=== PATIENT | female | born 1935 | race Hispanic/Latino ===

== ENCOUNTER 2016-10-20 14:27 | Inpatient (IN) | payer OTHER ==
[2016-10-20 16:09] VITALS: BMI 40.5
[2016-10-20 16:39] VITALS: RESP 20
[2016-10-20] MEDS ORDERED: Oxycodone/Acetaminophen 5/325 mg Tab PO PRN (16:59)
[2016-10-20] MEDS ORDERED: Albuterol-Ipratrop 3 mg / 0.5 (3 ml) UD INH PRN (17:02)
[2016-10-20] MEDS: metroNIDAZOLE 500mg/100ml NS 100 ML IVPB SCH (20:12)
[2016-10-20] MEDS: Benzocaine/Menthol (Cepacol) Lozenge PO PRN (20:13)
[2016-10-21] MEDS: metroNIDAZOLE 500mg/100ml NS 100 ML IVPB SCH ×3 (06:17→20:21)
--- NOTE | 2016-10-21 08:32 | CP.PCM.HP ---
<Cee Montero - Last Filed: 10/21/16 10:51> History of Present Illness - History of Present Illness History of Present Illness: Pt is a 81 y/o female with medical history of HTN, COPD, CKD stage 4 and cervical cancer with recurrent abdominal abscess following complications to surgery; presented to ED with complaints of enlarging suprapubic mass and vaginal cyst was admitted and started on IV antibiotics and seen by surgery where I&D was performed. Infectious disease was consulted during the inpatient stays and recommends additional week of antibiotics, so pt has been admitted to TCU for antibiotics and rehab. Pt seen and evaluated at bedside this morning, does not have any complaints. Present on Admission - Present on Admission Any Indicators Present on Admission: No Review of Systems - Review of Systems All systems: reviewed and no additional remarkable complaints except Review of Systems: Per HPI Past Patient History - Infectious Disease Hx of Infectious Diseases: None - Past Medical History & Family History Past Medical History?: Yes - Past Social History Smoking Status: Heavy Smoker > 10 Cigarettes Daily - CARDIAC Hx Hypercholesterolemia: Yes Hx Hypertension: Yes - PULMONARY Hx Chronic Obstructive Pulmonary Disease (COPD): Yes - NEUROLOGICAL Hx Neurological Disorder: No - HEENT Hx HEENT Problems: No Hx Glaucoma: Yes - RENAL Hx Chronic Kidney Disease: Yes - ENDOCRINE/METABOLIC Hx Endocrine Disorders: No - HEMATOLOGICAL/ONCOLOGICAL Hx AIDS: No Hx Cancer: Yes (cervical) Hx Human Immunodeficiency Virus (HIV): No - INTEGUMENTARY Hx Dermatological Problems: No - MUSCULOSKELETAL/RHEUMATOLOGICAL Hx Falls: No Hx Osteoarthritis: Yes Hx Unsteady Gait: Yes - GASTROINTESTINAL Hx Colostomy: Yes (7 years) Hx Diverticulitis: Yes Hx Gall Bladder Disease: Yes Other/Comment: recurrent abdominal abcess - GENITOURINARY/GYNECOLOGICAL Hx Cervical Cancer: Yes Hx Incontinence: Yes Hx Urinary Tract Infection: Yes Other/Comment: Premont-uro fistula - PSYCHIATRIC Hx Anxiety: Yes Hx Depression: Yes Hx Substance Use: No - SURGICAL HISTORY Hx Cholecystectomy: Yes - ANESTHESIA Hx Anesthesia: Yes Hx Anesthesia Reactions: No Hx Malignant Hyperthermia: No Has any member of the family had a problem w/ anesthesia?: No Meds Allergies/Adverse Reactions: Allergies Allergy/AdvReac Type Severity Reaction Status Date / Time No Known Allergies Allergy Verified 10/20/16 16:07 Physical Exam - Constitutional Appears: Non-toxic, No Acute Distress - Head Exam Head Exam: NORMOCEPHALIC - Eye Exam Eye Exam: Normal appearance, PERRL Pupil Exam: NORMAL ACCOMODATION - ENT Exam ENT Exam: Mucous Membranes Moist - Respiratory Exam Respiratory Exam: Clear to Auscultation Bilateral, NORMAL BREATHING PATTERN. absent: Rhonchi, Wheezes - Cardiovascular Exam Cardiovascular Exam: REGULAR RHYTHM, +S1, +S2 - GI/Abdominal Exam GI & Abdominal Exam: Normal Bowel Sounds, Soft. absent: Tenderness Additional comments: colostomy site appears clean, no signs of infection - Extremities Exam Extremities exam: Negative for: calf tenderness, pedal edema - Neurological Exam Neurological exam: Alert, CN II-XII Intact, Oriented x3 Results - Vital Signs Recent Vital Signs: Last Vital Signs Temp 98.2 F 10/20/16 20:48 Pulse 89 10/20/16 20:48 Resp 20 10/20/16 20:48 BP 138/61 10/20/16 20:48 Pulse Ox 97 10/20/16 20:48 Assessment & Plan - Assessment and Plan (Free Text) Assessment: 81 y/o female admitted to TCU to complete a 1 week course of antibiotics for recurrent abscess s/p I&D Plan: 1. Recurrent abdominal abscess continue Zosyn (day 1 of 7) monitor vitals 2. start with Physical therapy 3. Diet- pt request regular diet 4. DVT prophylaxis- lovenox <Mamadou Beckman L - Last Filed: 10/25/16 07:12> Results - Vital Signs Recent Vital Signs: Last Vital Signs Temp 98.1 F 10/24/16 20:21 Pulse 79 10/24/16 20:21 Resp 20 10/24/16 20:21 BP 132/95 H 10/24/16 20:21 Pulse Ox 97 10/24/16 20:21 - Labs Result Diagrams: 10/24/16 12:30 10/24/16 12:30 Labs: Laboratory Results - last 24 hr 10/24/16 12:30 WBC 16.0 H D RBC 3.99 Hgb 12.1 Hct 38.2 MCV 95.9 MCH 30.2 MCHC 31.5 L RDW 15.2 H Plt Count 354 D Sodium 138 Potassium 5.1 H Chloride 110 H Carbon Dioxide 20 L Anion Gap 13 BUN 34 H Creatinine 2.0 H Est GFR ( Amer) 29 Est GFR (Non-Af Amer) 24 Random Glucose 139 H Calcium 9.6 Total Bilirubin 0.4 AST 27 ALT 25 Alkaline Phosphatase 97 Total Protein 7.7 Albumin 3.6 Globulin 4.0 H Albumin/Globulin Ratio 0.9 L Assessment & Plan - Assessment and Plan (Free Text) Plan: I was present during evaluation and discussed with Dr Winston cooper plans of care and PT. Mamadou Beckman M.D.
[2016-10-21] MEDS: Enoxaparin 30 mg Syringe SC SCH (08:46)
[2016-10-21] MEDS: Multiple Vitamins Oral Solution PO SCH (08:47)
[2016-10-21] MEDS ORDERED: Albuterol-Ipratrop 3 mg / 0.5 (3 ml) UD INH PRN (10:48)
[2016-10-21] MEDS: Lactobacillus Acidophilus 500 MU Cap PO SCH (17:26)
[2016-10-21] MEDS: Benzocaine/Menthol (Cepacol) Lozenge PO PRN (23:23)
[2016-10-22] MEDS: metroNIDAZOLE 500mg/100ml NS 100 ML IVPB SCH ×3 (04:44→21:53)
[2016-10-22] MEDS: Benzocaine/Menthol (Cepacol) Lozenge PO PRN (04:50)
[2016-10-22] MEDS: Lactobacillus Acidophilus 500 MU Cap PO SCH ×2 (09:07→17:32)
[2016-10-22] MEDS: Multiple Vitamins Oral Solution PO SCH (09:08)
[2016-10-22] MEDS: Enoxaparin 30 mg Syringe SC SCH (09:10)
--- NOTE | 2016-10-22 11:09 | RAD ---
HISTORY: wheezing/moist cough COMPARISON: 10/16/2016 TECHNIQUE: Chest PA and lateral FINDINGS: LUNGS: Minor volume loss is seen at the lung bases. There may be some improved aeration at the left lung base from prior study. Trachea is midline. No new focal infiltrate is seen. PLEURA: No significant pleural effusion identified. No pneumothorax apparent. CARDIOVASCULAR: Heart is not enlarged. Aorta is unchanged. No CHF is seen. OSSEOUS STRUCTURES: Healing left rib fracture is noted. No acute rib fracture or thoracic spine fracture is seen. Degenerative changes are seen in the thoracic spine with minor chronic wedge deformity. . VISUALIZED UPPER ABDOMEN: Normal. OTHER FINDINGS: None. IMPRESSION: No CHF or focal infiltrate. Minor interval improvement aeration.
[2016-10-22] MEDS: Albuterol-Ipratrop 3 mg / 0.5 (3 ml) UD INH SCH ×2 (15:27→20:07)
[2016-10-23] MEDS: metroNIDAZOLE 500mg/100ml NS 100 ML IVPB SCH ×3 (04:49→21:28)
[2016-10-23] MEDS: Albuterol-Ipratrop 3 mg / 0.5 (3 ml) UD INH SCH ×4 (07:30→19:47)
[2016-10-23] MEDS: Lactobacillus Acidophilus 500 MU Cap PO SCH ×2 (08:57→17:38)
[2016-10-23] MEDS: Enoxaparin 30 mg Syringe SC SCH (08:58)
[2016-10-23] MEDS: Multiple Vitamins Oral Solution PO SCH (09:00)
[2016-10-23] MEDS: Latanoprost 0.005% Opht SOUTION OU SCH (23:00)
[2016-10-24] MEDS: metroNIDAZOLE 500mg/100ml NS 100 ML IVPB SCH ×3 (05:04→21:48)
[2016-10-24] MEDS: Albuterol-Ipratrop 3 mg / 0.5 (3 ml) UD INH SCH ×4 (07:31→19:25)
[2016-10-24] MEDS: Lactobacillus Acidophilus 500 MU Cap PO SCH ×2 (09:02→17:37)
[2016-10-24] MEDS: Multiple Vitamins Oral Solution PO SCH (09:02)
[2016-10-24] MEDS: Enoxaparin 30 mg Syringe SC SCH (09:03)
[2016-10-24 12:50] LABS: HEMATOCRIT 38.2 % (34.0-47.0); MEAN CELL VOLUME 95.9 fl (81.0-99.0); MEAN CORPUSCULAR HEMOGLOBIN 30.2 pg (27.0-31.0); MEAN CORPUSCULAR HGB CONC 31.5 g/dL (33.0-37.0); RED CELL DISTRIBUTION WIDTH 15.2 % (11.5-14.5)
[2016-10-24 13:15] LABS: ALB/GLOB RATIO 0.9 (1.0-2.1); BILIRUBIN,TOTAL 0.4 mg/dl (0.2-1.3); CALCIUM 9.6 mg/dL (8.4-10.2); POTASSIUM 5.1 MMOL/L (3.6-5.0); TOTAL PROTEIN 7.7 G/DL (6.3-8.2)
--- NOTE | 2016-10-24 14:24 | RAD ---
HISTORY: r/o obstruction COMPARISON: CT abdomen pelvis without IV contrast performed 10/14/16 FINDINGS: Nonspecific bowel gas pattern. Evidence of right sided colostomy. IVC filter. Pelvic calcifications, likely phleboliths. Severe diastases of the pubic symphysis measuring approximately 4 cm in diameter. Irregularity about the left femoral head ; correlate clinically to exclude possibility of fracture. Osseous demineralization limits evaluation. Degenerative changes of the lower lumbar spine and bilateral hip joints. IMPRESSION: Severe diastases of the pubic symphysis measures approximately 4 cm in diameter. Irregularity about the left femoral head; correlate clinically to exclude possibility of fracture. If clinically indicated, CT may be considered for further evaluation.
[2016-10-24] MEDS: Potassium Chl 40 mEq in D5-1/2 1,000 ML IV SCH (14:36)
[2016-10-24] MEDS: Latanoprost 0.005% Opht SOUTION OU SCH (22:05)
[2016-10-25] MEDS ORDERED: Trimethobenzamide 200 mg/2 mL Inj IM ONE (00:26)
[2016-10-25] MEDS: Potassium Chl 40 mEq in D5-1/2 1,000 ML IV SCH (03:18)
[2016-10-25] MEDS: metroNIDAZOLE 500mg/100ml NS 100 ML IVPB SCH (05:27)
[2016-10-25 07:19] LABS: MEAN CELL VOLUME 96.4 fl (81.0-99.0); MEAN CORPUSCULAR HEMOGLOBIN 30.4 pg (27.0-31.0); MEAN CORPUSCULAR HGB CONC 31.5 g/dL (33.0-37.0); RED CELL DISTRIBUTION WIDTH 14.8 % (11.5-14.5); WHITE BLOOD COUNT 17.8 K/uL (4.8-10.8)
--- NOTE | 2016-10-25 07:21 | CP.PCM.PN ---
Subjective - Date & Time of Evaluation Date of Evaluation: 10/22/16 Time of Evaluation: 09:00 - Subjective Subjective: Patient continue to do well Has no chest pain or SOB. Has no fever. Objective - Vital Signs/Intake and Output Vital Signs (last 24 hours): Temp Pulse Resp BP Pulse Ox 98.1 F 79 20 132/95 H 97 10/24/16 20:21 10/24/16 20:21 10/24/16 20:21 10/24/16 20:21 10/24/16 20:21 - Medications Medications: Current Medications Albuterol/Ipratropium (Duoneb 3 Mg/0.5 Mg (3 Ml) Ud) 3 ml INH RQ6 PRN PRN Reason: Shortness of Breath Albuterol/Ipratropium (Duoneb 3 Mg/0.5 Mg (3 Ml) Ud) 3 ml INH RQ6 PRN PRN Reason: Shortness of Breath Albuterol/Ipratropium (Duoneb 3 Mg/0.5 Mg (3 Ml) Ud) 3 ml INH RQID [facility] Last Admin: 10/24/16 19:25 Dose: 3 ml Allopurinol (Zyloprim) 300 mg PO DAILY [facility] Last Admin: 10/24/16 09:03 Dose: Not Given Atorvastatin Calcium (Lipitor) 10 mg PO HS [facility] Last Admin: 10/24/16 21:49 Dose: 10 mg Benzocaine/Menthol (Cepacol Sore Throat) 1 nila PO Q2 PRN PRN Reason: Sore Throat Last Admin: 10/22/16 04:50 Dose: 1 nila Enoxaparin Sodium (Lovenox) 30 mg SC DAILY [facility] PRN Reason: Protocol Escitalopram Oxalate (Lexapro) 20 mg PO DAILY [facility] Last Admin: 10/24/16 09:02 Dose: Not Given Famotidine (Pepcid) 20 mg PO DAILY@2100 [facility] Last Admin: 10/24/16 21:48 Dose: 20 mg Fluticasone Propionate (Flonase) 1 spr SKYLAR BID [facility] Last Admin: 10/24/16 17:38 Dose: 1 spr Metronidazole (Flagyl 500mg/100ml Ns) 100 mls @ 100 mls/hr IVPB Q8@0500,1300, 2100 [facility] Last Admin: 10/25/16 05:27 Dose: 100 mls/hr Piperacillin Sod/Tazobactam (Sod 2.25 gm/ Sodium Chloride) 100 mls @ 100 mls/ hr IVPB 0600,1200,1800,0000 [facility] Last Admin: 10/25/16 05:28 Dose: 100 mls/hr Potassium Chloride/Dextrose/Sod Cl (Potassium Chl 40 Meq In D5-1/2ns) 1,000 mls @ 80 mls/hr IV .[id number] [facility] Stop: 10/25/16 12:46 Last Admin: 10/25/16 03:18 Dose: 80 mls/hr Ibuprofen (Motrin Tab) 400 mg PO Q6 PRN PRN Reason: Pain, moderate (4-7) Last Admin: 10/23/16 21:33 Dose: 400 mg Lactobacillus Acidophilus (Bacid Acidophilus) 1 cap PO BID [facility] Last Admin: 10/24/16 17:37 Dose: 1 cap Latanoprost (Xalatan Opht) 1 drop OU HS [facility] Last Admin: 10/24/16 22:05 Dose: 1 drop Metoprolol Tartrate (Lopressor) 25 mg PO DAILY [facility] Last Admin: 10/24/16 09:03 Dose: 25 mg Mirtazapine (Remeron) 15 mg PO HS PRN PRN Reason: Sleep Last Admin: 10/24/16 21:49 Dose: 15 mg Multivitamins/Vitamin C (Multi-Delyn Liquid) 5 ml PO DAILY [facility] Last Admin: 10/24/16 09:02 Dose: Not Given Ondansetron HCl (Zofran Inj) 4 mg IVP Q4 PRN PRN Reason: Nausea/Vomiting Last Admin: 10/25/16 06:18 Dose: 4 mg Timolol Maleate (Timoptic 0.5% Ophth Soln) 1 drop OU DAILY [facility] Last Admin: 10/24/16 09:02 Dose: 1 drop - Labs Labs: 10/24/16 12:30 10/24/16 12:30 - Head Exam Head Exam: NORMAL INSPECTION - Eye Exam Eye Exam: Normal appearance - Respiratory Exam Respiratory Exam: Clear to Ausculation Bilateral - Cardiovascular Exam Cardiovascular Exam: REGULAR RHYTHM - GI/Abdominal Exam GI & Abdominal Exam: Normal Bowel Sounds - Neurological Exam Neurological Exam: CN II-XII Intact, Oriented x3 Assessment and Plan (1) Abscess, suprapubic Status: Acute (2) CKD (chronic kidney disease) Status: Chronic (3) Hypertension Status: Chronic (4) COPD (chronic obstructive pulmonary disease) Status: Chronic (5) CKD (chronic kidney disease) stage 4, GFR 15-29 ml/min Status: Chronic - Assessment and Plan (Free Text) Plan: Cont meds Cont IV antibiotics cont tx
--- NOTE | 2016-10-25 07:26 | CP.PCM.PN ---
Subjective - Date & Time of Evaluation Date of Evaluation: 10/23/16 Time of Evaluation: 10:00 - Subjective Subjective: patient remains well Has no fever Did well with PT Has no chest pain or SOB. Objective - Vital Signs/Intake and Output Vital Signs (last 24 hours): Temp Pulse Resp BP Pulse Ox 98.1 F 79 20 132/95 H 97 10/24/16 20:21 10/24/16 20:21 10/24/16 20:21 10/24/16 20:21 10/24/16 20:21 - Medications Medications: Current Medications Albuterol/Ipratropium (Duoneb 3 Mg/0.5 Mg (3 Ml) Ud) 3 ml INH RQ6 PRN PRN Reason: Shortness of Breath Albuterol/Ipratropium (Duoneb 3 Mg/0.5 Mg (3 Ml) Ud) 3 ml INH RQ6 PRN PRN Reason: Shortness of Breath Albuterol/Ipratropium (Duoneb 3 Mg/0.5 Mg (3 Ml) Ud) 3 ml INH RQID [facility] Last Admin: 10/24/16 19:25 Dose: 3 ml Allopurinol (Zyloprim) 300 mg PO DAILY [facility] Last Admin: 10/24/16 09:03 Dose: Not Given Atorvastatin Calcium (Lipitor) 10 mg PO HS [facility] Last Admin: 10/24/16 21:49 Dose: 10 mg Benzocaine/Menthol (Cepacol Sore Throat) 1 nila PO Q2 PRN PRN Reason: Sore Throat Last Admin: 10/22/16 04:50 Dose: 1 nila Enoxaparin Sodium (Lovenox) 30 mg SC DAILY [facility] PRN Reason: Protocol Escitalopram Oxalate (Lexapro) 20 mg PO DAILY [facility] Last Admin: 10/24/16 09:02 Dose: Not Given Famotidine (Pepcid) 20 mg PO DAILY@2100 [facility] Last Admin: 10/24/16 21:48 Dose: 20 mg Fluticasone Propionate (Flonase) 1 spr SKYLAR BID [facility] Last Admin: 10/24/16 17:38 Dose: 1 spr Metronidazole (Flagyl 500mg/100ml Ns) 100 mls @ 100 mls/hr IVPB Q8@0500,1300, 2100 [facility] Last Admin: 10/25/16 05:27 Dose: 100 mls/hr Piperacillin Sod/Tazobactam (Sod 2.25 gm/ Sodium Chloride) 100 mls @ 100 mls/ hr IVPB 0600,1200,1800,0000 [facility] Last Admin: 10/25/16 05:28 Dose: 100 mls/hr Potassium Chloride/Dextrose/Sod Cl (Potassium Chl 40 Meq In D5-1/2ns) 1,000 mls @ 80 mls/hr IV .[id number] [facility] Stop: 10/25/16 12:46 Last Admin: 10/25/16 03:18 Dose: 80 mls/hr Ibuprofen (Motrin Tab) 400 mg PO Q6 PRN PRN Reason: Pain, moderate (4-7) Last Admin: 10/23/16 21:33 Dose: 400 mg Lactobacillus Acidophilus (Bacid Acidophilus) 1 cap PO BID [facility] Last Admin: 10/24/16 17:37 Dose: 1 cap Latanoprost (Xalatan Opht) 1 drop OU HS [facility] Last Admin: 10/24/16 22:05 Dose: 1 drop Metoprolol Tartrate (Lopressor) 25 mg PO DAILY [facility] Last Admin: 10/24/16 09:03 Dose: 25 mg Mirtazapine (Remeron) 15 mg PO HS PRN PRN Reason: Sleep Last Admin: 10/24/16 21:49 Dose: 15 mg Multivitamins/Vitamin C (Multi-Delyn Liquid) 5 ml PO DAILY [facility] Last Admin: 10/24/16 09:02 Dose: Not Given Ondansetron HCl (Zofran Inj) 4 mg IVP Q4 PRN PRN Reason: Nausea/Vomiting Last Admin: 10/25/16 06:18 Dose: 4 mg Timolol Maleate (Timoptic 0.5% Ophth Soln) 1 drop OU DAILY [facility] Last Admin: 10/24/16 09:02 Dose: 1 drop - Labs Labs: 10/25/16 07:07 10/24/16 12:30 - Head Exam Head Exam: NORMAL INSPECTION - Eye Exam Eye Exam: Normal appearance - Respiratory Exam Respiratory Exam: Clear to Ausculation Bilateral - Cardiovascular Exam Cardiovascular Exam: REGULAR RHYTHM - GI/Abdominal Exam GI & Abdominal Exam: Normal Bowel Sounds - Neurological Exam Neurological Exam: CN II-XII Intact, Oriented x3 Assessment and Plan (1) Abscess, suprapubic Status: Acute (2) CKD (chronic kidney disease) Status: Chronic (3) Hypertension Status: Chronic (4) COPD (chronic obstructive pulmonary disease) Status: Chronic (5) CKD (chronic kidney disease) stage 4, GFR 15-29 ml/min Status: Chronic - Assessment and Plan (Free Text) Plan: Cont meds Cont PT Cont IV antibiotics
--- NOTE | 2016-10-25 07:30 | CP.PCM.PN ---
Subjective - Date & Time of Evaluation Date of Evaluation: 10/24/16 Time of Evaluation: 10:00 - Subjective Subjective: Complains of nausea and could not tolerate breakfast. Has no fever, Had a good bm Had loose stools yesterday but was negative for C diff. Objective - Vital Signs/Intake and Output Vital Signs (last 24 hours): Temp Pulse Resp BP Pulse Ox 98.1 F 79 20 132/95 H 97 10/24/16 20:21 10/24/16 20:21 10/24/16 20:21 10/24/16 20:21 10/24/16 20:21 - Medications Medications: Current Medications Albuterol/Ipratropium (Duoneb 3 Mg/0.5 Mg (3 Ml) Ud) 3 ml INH RQ6 PRN PRN Reason: Shortness of Breath Albuterol/Ipratropium (Duoneb 3 Mg/0.5 Mg (3 Ml) Ud) 3 ml INH RQ6 PRN PRN Reason: Shortness of Breath Albuterol/Ipratropium (Duoneb 3 Mg/0.5 Mg (3 Ml) Ud) 3 ml INH RQID [facility] Last Admin: 10/24/16 19:25 Dose: 3 ml Allopurinol (Zyloprim) 300 mg PO DAILY [facility] Last Admin: 10/24/16 09:03 Dose: Not Given Atorvastatin Calcium (Lipitor) 10 mg PO HS [facility] Last Admin: 10/24/16 21:49 Dose: 10 mg Benzocaine/Menthol (Cepacol Sore Throat) 1 nila PO Q2 PRN PRN Reason: Sore Throat Last Admin: 10/22/16 04:50 Dose: 1 nila Enoxaparin Sodium (Lovenox) 30 mg SC DAILY [facility] PRN Reason: Protocol Escitalopram Oxalate (Lexapro) 20 mg PO DAILY [facility] Last Admin: 10/24/16 09:02 Dose: Not Given Famotidine (Pepcid) 20 mg PO DAILY@2100 [facility] Last Admin: 10/24/16 21:48 Dose: 20 mg Fluticasone Propionate (Flonase) 1 spr SKYLAR BID [facility] Last Admin: 10/24/16 17:38 Dose: 1 spr Metronidazole (Flagyl 500mg/100ml Ns) 100 mls @ 100 mls/hr IVPB Q8@0500,1300, 2100 [facility] Last Admin: 10/25/16 05:27 Dose: 100 mls/hr Piperacillin Sod/Tazobactam (Sod 2.25 gm/ Sodium Chloride) 100 mls @ 100 mls/ hr IVPB 0600,1200,1800,0000 [facility] Last Admin: 10/25/16 05:28 Dose: 100 mls/hr Potassium Chloride/Dextrose/Sod Cl (Potassium Chl 40 Meq In D5-1/2ns) 1,000 mls @ 80 mls/hr IV .[id number] [facility] Stop: 10/25/16 12:46 Last Admin: 10/25/16 03:18 Dose: 80 mls/hr Ibuprofen (Motrin Tab) 400 mg PO Q6 PRN PRN Reason: Pain, moderate (4-7) Last Admin: 10/23/16 21:33 Dose: 400 mg Lactobacillus Acidophilus (Bacid Acidophilus) 1 cap PO BID [facility] Last Admin: 10/24/16 17:37 Dose: 1 cap Latanoprost (Xalatan Opht) 1 drop OU HS [facility] Last Admin: 10/24/16 22:05 Dose: 1 drop Metoprolol Tartrate (Lopressor) 25 mg PO DAILY [facility] Last Admin: 10/24/16 09:03 Dose: 25 mg Mirtazapine (Remeron) 15 mg PO HS PRN PRN Reason: Sleep Last Admin: 10/24/16 21:49 Dose: 15 mg Multivitamins/Vitamin C (Multi-Delyn Liquid) 5 ml PO DAILY [facility] Last Admin: 10/24/16 09:02 Dose: Not Given Ondansetron HCl (Zofran Inj) 4 mg IVP Q4 PRN PRN Reason: Nausea/Vomiting Last Admin: 10/25/16 06:18 Dose: 4 mg Timolol Maleate (Timoptic 0.5% Ophth Soln) 1 drop OU DAILY [facility] Last Admin: 10/24/16 09:02 Dose: 1 drop - Labs Labs: 10/25/16 07:07 10/24/16 12:30 - Head Exam Head Exam: NORMAL INSPECTION - Eye Exam Eye Exam: Normal appearance - Respiratory Exam Respiratory Exam: NORMAL BREATHING PATTERN - Cardiovascular Exam Cardiovascular Exam: REGULAR RHYTHM - GI/Abdominal Exam GI & Abdominal Exam: Normal Bowel Sounds - Neurological Exam Neurological Exam: CN II-XII Intact, Oriented x3 Assessment and Plan (1) Abscess, suprapubic Status: Acute (2) CKD (chronic kidney disease) Status: Chronic (3) Hypertension Status: Chronic (4) COPD (chronic obstructive pulmonary disease) Status: Chronic (5) CKD (chronic kidney disease) stage 4, GFR 15-29 ml/min Status: Chronic - Assessment and Plan (Free Text) Plan: Keep NPO Hydrate Cont meds Cont tx Zofran check labs hydrate with D5 and KCl
[2016-10-25 07:38] LABS: ALB/GLOB RATIO 0.9 (1.0-2.1); BILIRUBIN,TOTAL 0.5 mg/dl (0.2-1.3); CALCIUM 10.1 mg/dL (8.4-10.2); POTASSIUM 4.7 MMOL/L (3.6-5.0); TOTAL PROTEIN 7.7 G/DL (6.3-8.2)
[2016-10-25] MEDS: Albuterol-Ipratrop 3 mg / 0.5 (3 ml) UD INH SCH ×4 (07:55→20:43)
[2016-10-25] MEDS: Lactobacillus Acidophilus 500 MU Cap PO SCH ×2 (08:49→16:40)
[2016-10-25] MEDS: Multiple Vitamins Oral Solution PO SCH (08:49)
--- NOTE | 2016-10-25 10:50 | CP.PCM.CON ---
History of Present Illness - History of Present Illness History of Present Illness: 81 y/o female with medical history of HTN, COPD, CKD stage 4 and cervical cancer with recurrent abdominal abscess following complications to surgery; presented to ED with complaints of enlarging suprapubic mass and vaginal cyst was admitted and started on IV antibiotics and seen by surgery where I&D was performed. referred for ID eval and f-up s/p I and D c/o nausea and vomitung with loose stool in rlq colostomy Review of Systems - Constitutional Constitutional: As Per HPI - EENT Eyes: absent: As Per HPI, Blind Spots, Blurred Vision, Change in Vision, Decreased Night Vision, Diplopia, Discharge, Dry Eye, Exophthalmos, Floaters, Irritation, Itchy Eyes, Loss of Peripheral Vision, Pain, Photophobia, Requires Corrective Lenses, Sees Flashes, Spots in Vision, Tunnel Vision, Other Visual Disturbances, Loss of Vision, Other Ears: absent: As Per HPI, Decreased Hearing, Ear Discharge, Ear Pain, Tinnitus, Abnormal Hearing, Disequilibrium, Dizziness, Other Nose/Mouth/Throat: absent: As Per HPI, Epistaxis, Nasal Congestion, Nasal Discharge, Nasal Obstruction, Nasal Trauma, Nose Pain, Post Nasal Drip, Sinus Pain, Sinus Pressure, Bleeding Gums, Change in Voice, Dental Pain, Dry Mouth, Dysphagia, Halitosis, Hoarsness, Lip Swelling, Mouth Lesions, Mouth Pain, Odynophagia, Sore Throat, Throat Swelling, Tongue Swelling, Facial Pain, Neck Pain, Neck Mass, Other - Breasts Breasts: absent: As Per HPI, Change in Shape, Mass, Pain, Nipple Discharge, Nipple Inversion, Skin Changes, Swelling, Other - Cardiovascular Cardiovascular: absent: As Per HPI, Acrocyanosis, Chest Pain, Chest Pain at Rest , Chest Pain with Activity, Claudication, Diaphoresis, Dyspnea, Dyspnea on Exertion, Edema, Irregular Heart Rhythm, Pain Radiating to Arm/Neck/Jaw, Leg Edema, Leg Ulcers, Lightheadedness, Orthopnea, Palpitations, Paroxysmal Nocturnal Dyspnea, Pedal Edema, Radiating Pain, Rapid Heart Rate, Slow Heart Rate, Syncope, Other - Respiratory Respiratory: absent: As Per HPI, Cough, Dyspnea, Hemoptysis, Dyspnea on Exertion , Wheezing, Snoring, Stridor, Pain on Inspiration, Chest Congestion, Excessive Mucous Production, Change in Mucous Color, Pain with Coughing, Other - Gastrointestinal Gastrointestinal: As Per HPI - Genitourinary Genitourinary: absent: As Per HPI, Change in Urinary Stream, Difficulty Urinating, Dysuria, Flank Pain, Hematuria, Pyuria, Nocturia, Urinary Incontinence, Urinary Frequency, Urinary Hesitance, Urinary Urgency, Voiding Freq/Small Amts, Freq UTI, Hx Renal/Bladder Calculi, Hx /Renal Surgery, Bladder Distension, Other - Reproductive: Female Reproductive:Female: absent: As Per HPI, Amenorrhea, Amenorrhea/ Control, Currently Menstual, Cycle <21 Days, Cycle >35 Days, Cycle Variable, Menses 1-7 Days, Menses >/= 8 Days, Menses Variable, Cycle > 4 Weeks Between, No Menses for 6 Months, Heavy Menses, Light Menses, Normal Menses, Spotting Between Cycles , S/P Hysterectomy, Menopausal, Post Menopausal, Premenarche, Abnormal Vaginal Bleeding, Dysmenorrhea, Dyspareunia, Genital Lesions, Genital Pruritis, Pelvic Pain, Prolapse Symptoms, Sexual Dysfunction, Vaginal Discharge, Vaginal Dryness , Vaginal Odor, Vaginal Pruritis, Other - Menstruation Menstruation: absent: As Per HPI, Amenorrhea, Amenorrhea/ Control, Currently Menstual, Cycle <21 Days, Cycle >35 Days, Cycle Variable, Menses 1-7 Days, Menses >/= 8 Days, Menses Variable, Cycle > 4 Weeks Between, No Menses for 6 Months, Heavy Menses, Light Menses, Normal Menses, Spotting Between Cycles , S/P Hysterectomy, Menopausal, Post Menopausal, Premenarche, Abnormal Vaginal Bleeding, Dysmenorrhea, Other - Integumentary Integumentary: absent: As Per HPI, Acne, Alopecia, Bleeding Lesions, Change in Hair, Change in Nails, Change in Pigmentation, Changing Lesions, Dry Skin, Erythema, Furuncle, Hirsutism, Lesions, New Lesions, Non-Healing Lesions, Photosensitivity, Pruritus, Rash, Skin Pain, Skin Ulcer, Sores, Striae, Swelling , Unusual Bruising, Wounds, Jaundice, Other - Neurological Neurological: absent: As Per HPI, Abnormal Gait, Abnormal Hearing, Abnormal Movements, Abnormal Speech, Behavioral Changes, Burning Sensations, Confusion, Convulsions, Disequilibrium, Dizziness, Numbness, Focal Weakness, Frequent Falls , Headaches, Lack of Coordination, Loss of Vision, Memory Loss, Paresthesias, Radicular Pain, Restless Legs, Sensory Deficit, Syncope, Tingling, Tremor, Vertigo, Weakness, Other Visual Disturbances, Other - Psychiatric Psychiatric: absent: As Per HPI, Abnormal Sleep Pattern, Anhedonia, Anxiety, Auditory Hallucinations, Behavioral Changes, Change in Appetite, Change in Libido, Confusion, Depression, Difficulty Concentrating, Hallucinations, Homicidal Ideation, Hopelessness, Irritability, Memory Loss, Mood Swings, Panic Attacks, Paranoia, Suicidal Ideation, Visual Hallucinations, Tactile Hallucinations, Other - Endocrine Endocrine: absent: As Per HPI, Change in Body Appearance, Change in Libido, Cold Intolorance, Deepening of Voice, Excessive Sweating, Fatigue, Flushing, Heat Intolorance, Increase in Ring/Shoe/Hat Size, Palpitations, Polydipsia, Polyphagia, Polyuria, Other - Hematologic/Lymphatic Hematologic: absent: As Per HPI, Easy Bleeding, Easy Bruising, Lymphadenopathy, Other Past Patient History - Infectious Disease Hx of Infectious Diseases: None - Past Medical History & Family History Past Medical History?: Yes - Past Social History Smoking Status: Heavy Smoker > 10 Cigarettes Daily - CARDIAC Hx Hypercholesterolemia: Yes Hx Hypertension: Yes - PULMONARY Hx Chronic Obstructive Pulmonary Disease (COPD): Yes - NEUROLOGICAL Hx Neurological Disorder: No - HEENT Hx HEENT Problems: No Hx Glaucoma: Yes - RENAL Hx Chronic Kidney Disease: Yes - ENDOCRINE/METABOLIC Hx Endocrine Disorders: No - HEMATOLOGICAL/ONCOLOGICAL Hx AIDS: No Hx Cancer: Yes (cervical) Hx Human Immunodeficiency Virus (HIV): No - INTEGUMENTARY Hx Dermatological Problems: No - MUSCULOSKELETAL/RHEUMATOLOGICAL Hx Falls: No Hx Osteoarthritis: Yes Hx Unsteady Gait: Yes - GASTROINTESTINAL Hx Colostomy: Yes (7 years) Hx Diverticulitis: Yes Hx Gall Bladder Disease: Yes Other/Comment: recurrent abdominal abcess - GENITOURINARY/GYNECOLOGICAL Hx Cervical Cancer: Yes Hx Incontinence: Yes Hx Urinary Tract Infection: Yes Other/Comment: [place]-uro fistula - PSYCHIATRIC Hx Anxiety: Yes Hx Depression: Yes Hx Substance Use: No - SURGICAL HISTORY Hx Cholecystectomy: Yes - ANESTHESIA Hx Anesthesia: Yes Hx Anesthesia Reactions: No Hx Malignant Hyperthermia: No Has any member of the family had a problem w/ anesthesia?: No Meds Allergies/Adverse Reactions: Allergies Allergy/AdvReac Type Severity Reaction Status Date / Time No Known Allergies Allergy Verified 03/16/17 16:07 - Medications Medications: Current Medications Albuterol/Ipratropium (Duoneb 3 Mg/0.5 Mg (3 Ml) Ud) 3 ml INH RQ6 PRN PRN Reason: Shortness of Breath Albuterol/Ipratropium (Duoneb 3 Mg/0.5 Mg (3 Ml) Ud) 3 ml INH RQ6 PRN PRN Reason: Shortness of Breath Albuterol/Ipratropium (Duoneb 3 Mg/0.5 Mg (3 Ml) Ud) 3 ml INH RQID [facility] Last Admin: 10/25/16 07:55 Dose: 3 ml Allopurinol (Zyloprim) 300 mg PO DAILY [facility] Last Admin: 10/25/16 08:43 Dose: 300 mg Atorvastatin Calcium (Lipitor) 10 mg PO HS [facility] Last Admin: 10/24/16 21:49 Dose: 10 mg Benzocaine/Menthol (Cepacol Sore Throat) 1 nila PO Q2 PRN PRN Reason: Sore Throat Last Admin: 10/22/16 04:50 Dose: 1 nila Enoxaparin Sodium (Lovenox) 30 mg SC DAILY [facility] PRN Reason: Protocol Escitalopram Oxalate (Lexapro) 20 mg PO DAILY [facility] Last Admin: 10/25/16 08:43 Dose: 20 mg Famotidine (Pepcid) 20 mg PO DAILY@2100 [facility] Last Admin: 10/24/16 21:48 Dose: 20 mg Fluticasone Propionate (Flonase) 1 spr SKYLAR BID [facility] Last Admin: 10/25/16 08:49 Dose: 1 spr Metronidazole (Flagyl 500mg/100ml Ns) 100 mls @ 100 mls/hr IVPB Q8@0500,1300, 2100 [facility] Last Admin: 10/25/16 05:27 Dose: 100 mls/hr Piperacillin Sod/Tazobactam (Sod 2.25 gm/ Sodium Chloride) 100 mls @ 100 mls/ hr IVPB 0600,1200,1800,0000 [facility] Last Admin: 10/25/16 05:28 Dose: 100 mls/hr Potassium Chloride/Dextrose/Sod Cl (Potassium Chl 40 Meq In D5-1/2ns) 1,000 mls @ 80 mls/hr IV .[id number] [facility] Stop: 10/25/16 12:46 Last Admin: 10/25/16 03:18 Dose: 80 mls/hr Ibuprofen (Motrin Tab) 400 mg PO Q6 PRN PRN Reason: Pain, moderate (4-7) Last Admin: 10/23/16 21:33 Dose: 400 mg Lactobacillus Acidophilus (Bacid Acidophilus) 1 cap PO BID [facility] Last Admin: 10/25/16 08:49 Dose: 1 cap Latanoprost (Xalatan Opht) 1 drop OU HS [facility] Last Admin: 10/24/16 22:05 Dose: 1 drop Metoprolol Tartrate (Lopressor) 25 mg PO DAILY [facility] Last Admin: 10/25/16 08:43 Dose: 25 mg Mirtazapine (Remeron) 15 mg PO HS PRN PRN Reason: Sleep Last Admin: 10/24/16 21:49 Dose: 15 mg Multivitamins/Vitamin C (Multi-Delyn Liquid) 5 ml PO DAILY [facility] Last Admin: 10/25/16 08:49 Dose: 5 ml Nystatin (Nystop Topical Powder) 1 applic TOP TID [facility] Ondansetron HCl (Zofran Inj) 4 mg IVP Q4 PRN PRN Reason: Nausea/Vomiting Last Admin: 10/25/16 06:18 Dose: 4 mg Timolol Maleate (Timoptic 0.5% Oph Soln) 1 drop OU DAILY [facility] Last Admin: 10/25/16 08:49 Dose: 1 drop Results - Vital Signs Recent Vital Signs: Last Vital Signs Temp 97.5 F L 10/25/16 08:44 Pulse 83 10/25/16 08:44 Resp 20 10/25/16 08:44 BP 154/82 H 10/25/16 08:44 Pulse Ox 96 10/25/16 08:44 - Labs Result Diagrams: 10/25/16 07:07 10/25/16 07:07 Labs: Laboratory Results - last 24 hr 10/24/16 10/25/16 12:30 07:07 WBC 16.0 H D 17.8 H RBC 3.99 4.05 Hgb 12.1 12.3 Hct 38.2 39.0 MCV 95.9 96.4 MCH 30.2 30.4 MCHC 31.5 L 31.5 L RDW 15.2 H 14.8 H Plt Count 354 D 372 Sodium 138 149 H Potassium 5.1 H 4.7 Chloride 110 H 112 H Carbon Dioxide 20 L 21 L Anion Gap 13 21 H BUN 34 H 38 H Creatinine 2.0 H 1.9 H Est GFR ( Amer) 29 31 Est GFR (Non-Af Amer) 24 26 Random Glucose 139 H 121 H Calcium 9.6 10.1 Total Bilirubin 0.4 0.5 AST 27 49 H D ALT 25 28 Alkaline Phosphatase 97 88 Total Protein 7.7 7.7 Albumin 3.6 3.7 Globulin 4.0 H 4.0 H Albumin/Globulin Ratio 0.9 L 0.9 L Assessment & Plan (1) Abscess, suprapubic Status: Acute Priority: High (2) Chronic obstructive bronchitis Status: Acute Priority: High - Assessment and Plan (Free Text) Assessment: r/o recurrent abscess may need follow up surg eval, repaeat CT abd IV antibiiotics adjusted will follow
--- NOTE | 2016-10-25 11:21 | CP.PCM.PN ---
Subjective - Date & Time of Evaluation Date of Evaluation: 10/25/16 Time of Evaluation: 09:55 - Subjective Subjective: pt seen and examined at bedside, still reports feeling nauseous states she vomited last night but non this morning, has not had diarrhea but had regular bm ; denies any abdominal pain. no other complaints Objective - Vital Signs/Intake and Output Vital Signs (last 24 hours): Temp Pulse Resp BP Pulse Ox 97.5 F L 83 20 154/82 H 96 10/25/16 08:44 10/25/16 08:44 10/25/16 08:44 10/25/16 08:44 10/25/16 08:44 - Medications Medications: Current Medications Albuterol/Ipratropium (Duoneb 3 Mg/0.5 Mg (3 Ml) Ud) 3 ml INH RQ6 PRN PRN Reason: Shortness of Breath Albuterol/Ipratropium (Duoneb 3 Mg/0.5 Mg (3 Ml) Ud) 3 ml INH RQ6 PRN PRN Reason: Shortness of Breath Albuterol/Ipratropium (Duoneb 3 Mg/0.5 Mg (3 Ml) Ud) 3 ml INH RQID [facility] Last Admin: 10/25/16 07:55 Dose: 3 ml Allopurinol (Zyloprim) 300 mg PO DAILY [facility] Last Admin: 10/25/16 08:43 Dose: 300 mg Atorvastatin Calcium (Lipitor) 10 mg PO HS [facility] Last Admin: 10/24/16 21:49 Dose: 10 mg Benzocaine/Menthol (Cepacol Sore Throat) 1 nila PO Q2 PRN PRN Reason: Sore Throat Last Admin: 10/22/16 04:50 Dose: 1 nila Enoxaparin Sodium (Lovenox) 30 mg SC DAILY [facility] PRN Reason: Protocol Escitalopram Oxalate (Lexapro) 20 mg PO DAILY [facility] Last Admin: 10/25/16 08:43 Dose: 20 mg Famotidine (Pepcid) 20 mg PO DAILY@2100 [facility] Last Admin: 10/24/16 21:48 Dose: 20 mg Fluticasone Propionate (Flonase) 1 spr SKYLAR BID [facility] Last Admin: 10/25/16 08:49 Dose: 1 spr Piperacillin Sod/Tazobactam (Sod 2.25 gm/ Sodium Chloride) 100 mls @ 100 mls/ hr IVPB 0600,1200,1800,0000 [facility] Last Admin: 10/25/16 05:28 Dose: 100 mls/hr Potassium Chloride/Dextrose/Sod Cl (Potassium Chl 40 Meq In D5-1/2ns) 1,000 mls @ 80 mls/hr IV .[id number] [facility] Stop: 10/25/16 12:46 Last Admin: 10/25/16 03:18 Dose: 80 mls/hr Vancomycin HCl 1 gm/ Sodium (Chloride) 250 mls @ 250 mls/hr IVPB ONCE ONE Stop: 10/25/16 11:59 Cefazolin Sodium 1 gm/ Sodium (Chloride) 100 mls @ 100 mls/hr IVPB Q12 [facility] Ibuprofen (Motrin Tab) 400 mg PO Q6 PRN PRN Reason: Pain, moderate (4-7) Last Admin: 10/23/16 21:33 Dose: 400 mg Lactobacillus Acidophilus (Bacid Acidophilus) 1 cap PO BID [facility] Last Admin: 10/25/16 08:49 Dose: 1 cap Latanoprost (Xalatan Opht) 1 drop OU HS [facility] Last Admin: 10/24/16 22:05 Dose: 1 drop Metoprolol Tartrate (Lopressor) 25 mg PO DAILY [facility] Last Admin: 10/25/16 08:43 Dose: 25 mg Mirtazapine (Remeron) 15 mg PO HS PRN PRN Reason: Sleep Last Admin: 10/24/16 21:49 Dose: 15 mg Multivitamins/Vitamin C (Multi-Delyn Liquid) 5 ml PO DAILY [facility] Last Admin: 10/25/16 08:49 Dose: 5 ml Nystatin (Nystop Topical Powder) 1 applic TOP TID [facility] Ondansetron HCl (Zofran Inj) 4 mg IVP Q4 PRN PRN Reason: Nausea/Vomiting Last Admin: 10/25/16 06:18 Dose: 4 mg Timolol Maleate (Timoptic 0.5% Ophth Soln) 1 drop OU DAILY [facility] Last Admin: 10/25/16 08:49 Dose: 1 drop - Labs Labs: 10/25/16 07:07 10/25/16 07:07 - Constitutional Appears: Non-toxic, No Acute Distress - Head Exam Head Exam: NORMOCEPHALIC - ENT Exam ENT Exam: Mucous Membranes Moist - Respiratory Exam Respiratory Exam: Clear to Ausculation Bilateral, NORMAL BREATHING PATTERN. absent: Rhonchi, Wheezes - Cardiovascular Exam Cardiovascular Exam: REGULAR RHYTHM, +S1, +S2 - GI/Abdominal Exam GI & Abdominal Exam: Soft, Normal Bowel Sounds. absent: Tenderness Additional comments: colostomy bag shows some loss stools, but no signs of infection in surrounding area - Extremities Exam Extremities Exam: absent: Calf Tenderness Assessment and Plan - Assessment and Plan (Free Text) Assessment: 81 y/o female admitted to TCU to complete a 1 week course of antibiotics for recurrent abscess s/p I&D Plan: 1. Recurrent abdominal abscess continue Zosyn (day 5 of 7) WBC starting to trend up, ID consulted Metronidazle changed to Cefazolin (day 1) repeat abdominal ct scan (script given to TCU ) - will consider re-consulting surgery depending on finding will repeat cbc in the AM No fevers monitor vitals 2. Vaginal bleeding had another episode of vaginal bleeding mixed with her urine No longer actively bleeding Will monitor 3. start with Physical therapy 4. Diet- pt request regular diet 5. DVT prophylaxis- lovenox
[2016-10-25] MEDS ORDERED: Iohexol 240 (50 ml) PO ONE (11:45)
[2016-10-25] MEDS: ceFAZolin 1 GM in Sodium Chloride 0.9% 100 ML IVPB SCH ×2 (12:08→23:13)
[2016-10-25] MEDS: Enoxaparin 30 mg Syringe SC SCH (12:09)
--- NOTE | 2016-10-25 13:47 | CP.PCM.CON ---
History of Present Illness - History of Present Illness History of Present Illness: Gen Surg: Dr. Singer 81F w/ PMHx of HTN, COPD, CKD stage IV, cervical CA, recurrent mons pubis abscess, s/p I&D of mons pubis abscess POD #8. Patient reports she has been experiencing nausea and vomiting since Monday10/21/16. She states she ate some beef and cabbage for [employer] day and hours after that she began to experience n/v. Patient also complains of loose green stool bowel movements into ostomy bag following consumption of food. Currently she denies fever/ chills, chest pain, SOB. Pt complains of generalized mild abdominal pain. Area along I&D incision is non-erythematous, non-tender, no evidence of discharge. Review of Systems - Review of Systems Review of Systems: 12 pt ROS carried out, unremarkable, except as stated in HPI Past Patient History - Infectious Disease Hx of Infectious Diseases: None - Past Medical History & Family History Past Medical History?: Yes - Past Social History Smoking Status: Heavy Smoker > 10 Cigarettes Daily - CARDIAC Hx Hypercholesterolemia: Yes Hx Hypertension: Yes - PULMONARY Hx Chronic Obstructive Pulmonary Disease (COPD): Yes - NEUROLOGICAL Hx Neurological Disorder: No - HEENT Hx HEENT Problems: No Hx Glaucoma: Yes - RENAL Hx Chronic Kidney Disease: Yes - ENDOCRINE/METABOLIC Hx Endocrine Disorders: No - HEMATOLOGICAL/ONCOLOGICAL Hx AIDS: No Hx Cancer: Yes (cervical) Hx Human Immunodeficiency Virus (HIV): No - INTEGUMENTARY Hx Dermatological Problems: No - MUSCULOSKELETAL/RHEUMATOLOGICAL Hx Falls: No Hx Osteoarthritis: Yes Hx Unsteady Gait: Yes - GASTROINTESTINAL Hx Colostomy: Yes (7 years) Hx Diverticulitis: Yes Hx Gall Bladder Disease: Yes Other/Comment: recurrent abdominal abcess - GENITOURINARY/GYNECOLOGICAL Hx Cervical Cancer: Yes Hx Incontinence: Yes Hx Urinary Tract Infection: Yes Other/Comment: [place]-uro fistula - PSYCHIATRIC Hx Anxiety: Yes Hx Depression: Yes Hx Substance Use: No - SURGICAL HISTORY Hx Cholecystectomy: Yes - ANESTHESIA Hx Anesthesia: Yes Hx Anesthesia Reactions: No Hx Malignant Hyperthermia: No Has any member of the family had a problem w/ anesthesia?: No Meds Allergies/Adverse Reactions: Allergies Allergy/AdvReac Type Severity Reaction Status Date / Time No Known Allergies Allergy Verified 10/20/16 16:07 - Medications Medications: Current Medications Albuterol/Ipratropium (Duoneb 3 Mg/0.5 Mg (3 Ml) Ud) 3 ml INH RQ6 PRN PRN Reason: Shortness of Breath Albuterol/Ipratropium (Duoneb 3 Mg/0.5 Mg (3 Ml) Ud) 3 ml INH RQ6 PRN PRN Reason: Shortness of Breath Albuterol/Ipratropium (Duoneb 3 Mg/0.5 Mg (3 Ml) Ud) 3 ml INH RQID [facility] Last Admin: 10/25/16 11:48 Dose: 3 ml Allopurinol (Zyloprim) 300 mg PO DAILY [facility] Last Admin: 10/25/16 08:43 Dose: 300 mg Atorvastatin Calcium (Lipitor) 10 mg PO HS [facility] Last Admin: 10/24/16 21:49 Dose: 10 mg Benzocaine/Menthol (Cepacol Sore Throat) 1 nila PO Q2 PRN PRN Reason: Sore Throat Last Admin: 10/22/16 04:50 Dose: 1 nila Enoxaparin Sodium (Lovenox) 30 mg SC DAILY [facility] PRN Reason: Protocol Last Admin: 10/25/16 12:09 Dose: Not Given Escitalopram Oxalate (Lexapro) 20 mg PO DAILY [facility] Last Admin: 10/25/16 08:43 Dose: 20 mg Famotidine (Pepcid) 20 mg PO DAILY@2100 [facility] Last Admin: 10/24/16 21:48 Dose: 20 mg Fluticasone Propionate (Flonase) 1 spr SKYLAR BID [facility] Last Admin: 10/25/16 08:49 Dose: 1 spr Piperacillin Sod/Tazobactam (Sod 2.25 gm/ Sodium Chloride) 100 mls @ 100 mls/ hr IVPB 0600,1200,1800,0000 [facility] Last Admin: 10/25/16 12:26 Dose: 100 mls/hr Cefazolin Sodium 1 gm/ Sodium (Chloride) 100 mls @ 100 mls/hr IVPB Q12 [facility] Last Admin: 10/25/16 12:08 Dose: 100 mls/hr Ibuprofen (Motrin Tab) 400 mg PO Q6 PRN PRN Reason: Pain, moderate (4-7) Last Admin: 10/23/16 21:33 Dose: 400 mg Lactobacillus Acidophilus (Bacid Acidophilus) 1 cap PO BID [facility] Last Admin: 10/25/16 08:49 Dose: 1 cap Latanoprost (Xalatan Opht) 1 drop OU HS [facility] Last Admin: 10/24/16 22:05 Dose: 1 drop Metoprolol Tartrate (Lopressor) 25 mg PO DAILY [facility] Last Admin: 10/25/16 08:43 Dose: 25 mg Mirtazapine (Remeron) 15 mg PO HS PRN PRN Reason: Sleep Last Admin: 10/24/16 21:49 Dose: 15 mg Multivitamins/Vitamin C (Multi-Delyn Liquid) 5 ml PO DAILY [facility] Last Admin: 10/25/16 08:49 Dose: 5 ml Nystatin (Nystop Topical Powder) 1 applic TOP TID [facility] Last Admin: 10/25/16 12:25 Dose: 1 applic Ondansetron HCl (Zofran Inj) 4 mg IVP Q4 PRN PRN Reason: Nausea/Vomiting Last Admin: 10/25/16 06:18 Dose: 4 mg Timolol Maleate (Timoptic 0.5% Ophth Soln) 1 drop OU DAILY [facility] Last Admin: 10/25/16 08:49 Dose: 1 drop Physical Exam - Constitutional Appears: No Acute Distress - Head Exam Head Exam: NORMOCEPHALIC - Eye Exam Eye Exam: Normal appearance - ENT Exam ENT Exam: Mucous Membranes Moist - Respiratory Exam Respiratory Exam: NORMAL BREATHING PATTERN - Cardiovascular Exam Cardiovascular Exam: +S1, +S2 - GI/Abdominal Exam GI & Abdominal Exam: Soft. absent: Distended, Firm, Guarding - Exam Additional comments: mons pubis region is c/d/i. No erythema, flunctuance, or discharge - Neurological Exam Neurological exam: Alert, Oriented x3 - Psychiatric Exam Psychiatric exam: Normal Mood - Skin Skin Exam: Dry, Intact, Warm Results - Vital Signs Recent Vital Signs: Last Vital Signs Temp 97.5 F L 10/25/16 08:44 Pulse 83 10/25/16 08:44 Resp 20 10/25/16 08:44 BP 154/82 H 10/25/16 08:44 Pulse Ox 96 10/25/16 08:44 - Labs Result Diagrams: 10/25/16 07:07 10/25/16 07:07 Labs: Laboratory Results - last 24 hr 10/25/16 07:07 WBC 17.8 H RBC 4.05 Hgb 12.3 Hct 39.0 MCV 96.4 MCH 30.4 MCHC 31.5 L RDW 14.8 H Plt Count 372 Sodium 149 H Potassium 4.7 Chloride 112 H Carbon Dioxide 21 L Anion Gap 21 H BUN 38 H Creatinine 1.9 H Est GFR ( Amer) 31 Est GFR (Non-Af Amer) 26 Random Glucose 121 H Calcium 10.1 Total Bilirubin 0.5 AST 49 H D ALT 28 Alkaline Phosphatase 88 Total Protein 7.7 Albumin 3.7 Globulin 4.0 H Albumin/Globulin Ratio 0.9 L Assessment & Plan - Assessment and Plan (Free Text) Assessment: 81F s/p I&D of mons pubis abscess POD #8 unable to tolerate PO intake w/ loose BM and leukocytosis -Agree w/ repeat CT scan -F/u CT scan results -IVF -Abx per ID -Anti-emetics -Will continue to follow and monitor patient -Discussed with Dr. Singer
[2016-10-25 21:11] LABS: RBC URINE 7343 /hpf (0-3); URINE BILIRUBIN NEGATIVE (NEGATIVE); URINE BLOOD MODERATE (NEGATIVE); URINE COLOR RED (YELLOW); URINE GLUCOSE (UA) 50 mg/dL (Normal); URINE KETONE NEGATIVE (NEGATIVE); URINE LEUKOCYTE ESTERASE MODERATE Leu/uL (Negative); URINE PROTEIN 100 mg/dL (NEGATIVE); URINE UROBILINOGEN 0.2-1.0 mg/dL (0.2-1.0); WBC URINE 536 /hpf (0-5)
[2016-10-25] MEDS: Latanoprost 0.005% Opht SOUTION OU SCH (22:00)
[2016-10-26] MEDS ORDERED: Dextrose 5%/0.9% NS 1,000 ML IV SCH (07:45)
[2016-10-26 07:49] LABS: ALB/GLOB RATIO 0.9 (1.0-2.1); BILIRUBIN,TOTAL 0.3 mg/dl (0.2-1.3); CALCIUM 9.8 mg/dL (8.4-10.2); POTASSIUM 4.3 MMOL/L (3.6-5.0); TOTAL PROTEIN 7.2 G/DL (6.3-8.2)
[2016-10-26 07:51] LABS: BASO # 0.1 K/uL (0.0-0.2); BASO % 0.5 % (0.0-2.0); EOS # 0.7 K/uL (0.0-0.7); EOS % 4.2 % (0.0-4.0); HEMATOCRIT 38.4 % (34.0-47.0); LYMPH # 1.8 K/uL (1.0-4.3); MEAN CELL VOLUME 96.3 fl (81.0-99.0); MEAN CORPUSCULAR HEMOGLOBIN 30.9 pg (27.0-31.0); MEAN CORPUSCULAR HGB CONC 32.1 g/dL (33.0-37.0); MEAN PLATELET VOLUME 8.8 fl (7.2-11.7); MONO # 1.2 K/uL (0.0-0.8); MONO % 7.6 % (0.0-10.0); NEUT # 12.5 K/uL (1.8-7.0); NEUT % 76.7 % (50.0-75.0); NRBC % 0.1 % (0.0-0.0); RED CELL DISTRIBUTION WIDTH 14.8 % (11.5-14.5); WHITE BLOOD COUNT 16.3 K/uL (4.8-10.8)
[2016-10-26] MEDS: Albuterol-Ipratrop 3 mg / 0.5 (3 ml) UD INH SCH ×2 (08:05→11:41)
[2016-10-26 08:06] VITALS: BP 151/91; PULSE 91; TEMP 98.6; O2SAT 98
[2016-10-26] MEDS: ceFAZolin 1 GM in Sodium Chloride 0.9% 100 ML IVPB SCH (08:43)
[2016-10-26] MEDS: Lactobacillus Acidophilus 500 MU Cap PO SCH (08:44)
[2016-10-26] MEDS: Multiple Vitamins Oral Solution PO SCH (08:45)
[2016-10-26] MEDS: Enoxaparin 30 mg Syringe SC SCH (08:46)
--- NOTE | 2016-10-26 10:36 | CP.PCM.PN ---
Subjective - Date & Time of Evaluation Date of Evaluation: 10/26/16 Time of Evaluation: 10:10 - Subjective Subjective: Patient was seen and examined at the bedside. Currently denies any abdominal pain, colostomy is functional, no pain to the site of prior I&D. Objective - Vital Signs/Intake and Output Vital Signs (last 24 hours): Temp Pulse Resp BP Pulse Ox 98.6 F 91 H 20 151/91 H 98 10/26/16 08:04 10/26/16 08:45 10/26/16 08:04 10/26/16 08:45 10/26/16 08:04 - Medications Medications: Current Medications Albuterol/Ipratropium (Duoneb 3 Mg/0.5 Mg (3 Ml) Ud) 3 ml INH RQ6 PRN PRN Reason: Shortness of Breath Albuterol/Ipratropium (Duoneb 3 Mg/0.5 Mg (3 Ml) Ud) 3 ml INH RQ6 PRN PRN Reason: Shortness of Breath Albuterol/Ipratropium (Duoneb 3 Mg/0.5 Mg (3 Ml) Ud) 3 ml INH RQID [facility] Last Admin: 10/26/16 08:05 Dose: 3 ml Allopurinol (Zyloprim) 300 mg PO DAILY [facility] Last Admin: 10/26/16 08:46 Dose: 300 mg Atorvastatin Calcium (Lipitor) 10 mg PO HS [facility] Last Admin: 10/25/16 22:00 Dose: 10 mg Benzocaine/Menthol (Cepacol Sore Throat) 1 nila PO Q2 PRN PRN Reason: Sore Throat Last Admin: 10/22/16 04:50 Dose: 1 nila Enoxaparin Sodium (Lovenox) 30 mg SC DAILY [facility] PRN Reason: Protocol Last Admin: 10/26/16 08:46 Dose: 30 mg Escitalopram Oxalate (Lexapro) 20 mg PO DAILY [facility] Last Admin: 10/26/16 08:46 Dose: 20 mg Famotidine (Pepcid) 20 mg PO DAILY@2100 [facility] Last Admin: 10/25/16 21:00 Dose: 20 mg Fluticasone Propionate (Flonase) 1 spr SKYLAR BID [facility] Last Admin: 10/26/16 08:44 Dose: 1 spr Piperacillin Sod/Tazobactam (Sod 2.25 gm/ Sodium Chloride) 100 mls @ 100 mls/ hr IVPB 0600,1200,1800,0000 [facility] Last Admin: 10/26/16 05:24 Dose: 100 mls/hr Cefazolin Sodium 1 gm/ Sodium (Chloride) 100 mls @ 100 mls/hr IVPB Q12 [facility] Last Admin: 10/26/16 08:43 Dose: 100 mls/hr Dextrose/Sodium Chloride (Dextrose 5%/0.9% Ns 1000 Ml) 1,000 mls @ 125 mls/hr IV .Q8H [facility] Stop: 10/27/16 07:46 Last Admin: 10/26/16 09:09 Dose: 125 mls/hr Ibuprofen (Motrin Tab) 400 mg PO Q6 PRN PRN Reason: Pain, moderate (4-7) Last Admin: 10/23/16 21:33 Dose: 400 mg Lactobacillus Acidophilus (Bacid Acidophilus) 1 cap PO BID [facility] Last Admin: 10/26/16 08:44 Dose: 1 cap Latanoprost (Xalatan Opht) 1 drop OU HS [facility] Last Admin: 10/25/16 22:00 Dose: 1 drop Metoclopramide HCl (Reglan) 10 mg IVP Q6 PRN PRN Reason: Nausea/Vomiting Metoprolol Tartrate (Lopressor) 25 mg PO DAILY [facility] Last Admin: 10/26/16 08:45 Dose: 25 mg Mirtazapine (Remeron) 15 mg PO HS PRN PRN Reason: Sleep Last Admin: 10/25/16 23:11 Dose: 15 mg Multivitamins/Vitamin C (Multi-Delyn Liquid) 5 ml PO DAILY [facility] Last Admin: 10/26/16 08:45 Dose: 5 ml Nystatin (Nystop Topical Powder) 1 applic TOP TID [facility] Last Admin: 10/26/16 08:46 Dose: 1 applic Ondansetron HCl (Zofran Inj) 4 mg IVP Q4 PRN PRN Reason: Nausea/Vomiting Last Admin: 10/26/16 06:09 Dose: 4 mg Pantoprazole Sodium (Protonix Inj) 40 mg IVP DAILY [facility] Last Admin: 10/26/16 10:29 Dose: 40 mg Timolol Maleate (Timoptic 0.5% Ophth Soln) 1 drop OU DAILY [facility] Last Admin: 10/26/16 08:46 Dose: 1 drop - Labs Labs: 03/22/17 07:00 10/26/16 07:00 - Constitutional Appears: Well, Non-toxic, No Acute Distress - Head Exam Head Exam: ATRAUMATIC, NORMAL INSPECTION, NORMOCEPHALIC - Eye Exam Eye Exam: EOMI, Normal appearance, PERRL Pupil Exam: NORMAL ACCOMODATION, PERRL - ENT Exam ENT Exam: Mucous Membranes Moist, Normal Exam - Neck Exam Neck Exam: Full ROM, Normal Inspection - Respiratory Exam Respiratory Exam: NORMAL BREATHING PATTERN - Cardiovascular Exam Cardiovascular Exam: REGULAR RHYTHM, +S1, +S2 - GI/Abdominal Exam GI & Abdominal Exam: Soft, Normal Bowel Sounds Additional comments: NT, ND, no rebound, no guarding, well healed scars from prior surgeries, colostomy in place with stool in the ostomy bag - Rectal Exam Additional comments: Good sphincter tone, no masses, no gross blood, brown stool in the rectal vault - Extremities Exam Extremities Exam: Full ROM, Normal Inspection - Neurological Exam Neurological Exam: Alert, Awake, Oriented x3 - Psychiatric Exam Psychiatric exam: Normal Affect, Normal Mood - Skin Skin Exam: Dry, Intact, Normal Color, Warm Additional comments: Incision at mons pubis well healed, no erythema, no drainage, non tender to palpation Assessment and Plan - Assessment and Plan (Free Text) Assessment: 81 y.o. female s/p Mons pubis abscess I&D now with leukocytosis Plan: - Continue diet - Zofran prn - Awaiting CT abd/pelvis results - Antibiotics as per ID - No general surgery intervention at present time - Repeat labs in am - Will follow
--- NOTE | 2016-10-26 13:59 | CP.PCM.DIS ---
Provider - Provider Date of Admission: 10/20/16 16:10 Attending physician: Mamadou Beckman MD Time Spent in preparation of Discharge (in minutes): 30 Diagnosis - Discharge Diagnosis (1) Abscess, suprapubic Status: Acute Priority: High Hospital Course - Lab Results Lab Results: Micro Results 10/20/16 01:56 Naris MRSA Culture (Admit) - Final MRSA NOT DETECTED Most Recent Lab Values WBC 16.3 K/uL (4.8-10.8) H 10/26/16 07:00 RBC 3.98 Mil/uL (3.80-5.20) 10/26/16 07:00 Hgb 12.3 g/dL (12.0-16.0) 10/26/16 07:00 Hct 38.4 % (34.0-47.0) 10/26/16 07:00 MCV 96.3 fl (81.0-99.0) 10/26/16 07:00 MCH 30.9 pg (27.0-31.0) 10/26/16 07:00 MCHC 32.1 g/dL (33.0-37.0) L 10/26/16 07:00 RDW 14.8 % (11.5-14.5) H 10/26/16 07:00 Plt Count 368 K/uL (130-400) 10/26/16 07:00 MPV 8.8 fl (7.2-11.7) 10/26/16 07:00 Neut % (Auto) 76.7 % (50.0-75.0) H 10/26/16 07:00 Lymph % (Auto) 11.0 % (20.0-40.0) L 10/26/16 07:00 Castro % (Auto) 7.6 % (0.0-10.0) 10/26/16 07:00 Eos % (Auto) 4.2 % (0.0-4.0) H 10/26/16 07:00 Baso % (Auto) 0.5 % (0.0-2.0) 10/26/16 07:00 Neut # 12.5 K/uL (1.8-7.0) H 10/26/16 07:00 Lymph # 1.8 K/uL (1.0-4.3) 10/26/16 07:00 Castro # 1.2 K/uL (0.0-0.8) H 10/26/16 07:00 Eos # 0.7 K/uL (0.0-0.7) 10/26/16 07:00 Baso # 0.1 K/uL (0.0-0.2) 10/26/16 07:00 ESR 95 mm/hr (0-30) H 10/26/16 07:00 Sodium 140 mmol/l (132-148) 10/26/16 07:00 Potassium 4.3 MMOL/L (3.6-5.0) 10/26/16 07:00 Chloride 112 mmol/L (98-107) H 10/26/16 07:00 Carbon Dioxide 19 mmol/L (22-30) L 10/26/16 07:00 Anion Gap 13 (10-20) 10/26/16 07:00 BUN 41 mg/dl (7-17) H 10/26/16 07:00 Creatinine 1.9 mg/dL (0.7-1.2) H 10/26/16 07:00 Est GFR ( Amer) 31 10/26/16 07:00 Est GFR (Non-Af Amer) 26 10/26/16 07:00 Random Glucose 98 mg/dL (65-105) 10/26/16 07:00 Calcium 9.8 mg/dL (8.4-10.2) 10/26/16 07:00 Total Bilirubin 0.3 mg/dl (0.2-1.3) 10/26/16 07:00 AST 25 U/L (14-36) 10/26/16 07:00 ALT 26 U/L (9-52) 10/26/16 07:00 Alkaline Phosphatase 90 U/L (38-126) 10/26/16 07:00 Total Protein 7.2 G/DL (6.3-8.2) 10/26/16 07:00 Albumin 3.4 g/dL (3.5-5.0) L 10/26/16 07:00 Globulin 3.8 gm/dL (2.2-3.9) 10/26/16 07:00 Albumin/Globulin Ratio 0.9 (1.0-2.1) L 10/26/16 07:00 Urine Color Red (YELLOW) 10/25/16 20:45 Urine Clarity Cloudy (Clear) 10/25/16 20:45 Urine pH 6.0 (5.0-8.0) 10/25/16 20:45 Ur Specific [place] 1.020 (1.003-1.030) 10/25/16 20:45 Urine Protein 100 mg/dL (NEGATIVE) 10/25/16 20:45 Urine Glucose (UA) 50 mg/dL (Normal) 10/25/16 20:45 Urine Ketones Negative mg/dL (NEGATIVE) 10/25/16 20:45 Urine Blood Moderate (NEGATIVE) 10/25/16 20:45 Urine Nitrate Negative (NEGATIVE) 10/25/16 20:45 Urine Bilirubin Negative (NEGATIVE) 10/25/16 20:45 Urine Urobilinogen 0.2-1.0 mg/dL (0.2-1.0) 10/25/16 20:45 Ur Leukocyte Esterase Moderate Javier/uL (Negative) 10/25/16 20:45 Urine RBC (Auto) 7343 /hpf (0-3) H 10/25/16 20:45 Urine Microscopic WBC 536 /hpf (0-5) H 10/25/16 20:45 C. difficile Ag & Toxin Negative (NEGATIVE) 10/23/16 19:37 - Hospital Course Hospital Course: pt was intially admitted to [facility] for supra pubic abscess, then discharged to TCU to completed antibiotics and rehab stay was ok until 3 days ago started with nausea and vomiting and now has hematuria. Pt is being discharged to be re admitted to hospital for medical management of hematuria Discharge Exam - Head Exam Head Exam: ATRAUMATIC, NORMAL INSPECTION, NORMOCEPHALIC - Eye Exam Eye Exam: Normal appearance, PERRL Pupil Exam: NORMAL ACCOMODATION - Respiratory Exam Respiratory Exam: NORMAL BREATHING PATTERN - Cardiovascular Exam Cardiovascular Exam: REGULAR RHYTHM, +S1, +S2 - GI/Abdominal Exam GI & Abdominal Exam: Normal Bowel Sounds - Exam Additional comments: speculum exam did not show in blood in the vaginal vault, no lesion, abscess appears to be healing well - Extremities Exam Extremities exam: pedal edema - Neurological Exam Neurological exam: Alert, CN II-XII Intact, Oriented x3 Discharge Plan - Follow Up Plan Condition: GOOD Disposition: HOSPITALIZED Patient education suggested?: Yes Instructions: Acute Hematuria (DC), Fall Prevention (DC)
== END 2016-10-26 12:30 | disposition short-term general hospital (02) | DRG 603 ==
LOC: H.TCU 16:10
PROVIDERS: ADMIT Family Medicine; ATTEND Family Medicine
PROC: 3E03329 Introduction of Other Anti-infective into Peripheral Vein, Percutaneous Approach (ICD-10-PCS; principal; 2016-10-20)
PROC: F07L6ZZ Therapeutic Exercise Treatment of Musculoskeletal System - Lower Back / Lower Extremity (ICD-10-PCS; 2016-10-21)
PROC: F08Z4FZ Home Management Treatment using Assistive, Adaptive, Supportive or Protective Equipment (ICD-10-PCS; 2016-10-21)
DX: L02.818 Cutaneous abscess of other sites (principal); N18.4 Chronic kidney disease, stage 4 (severe); R31.9 Hematuria, unspecified; J44.9 Chronic obstructive pulmonary disease, unspecified; I12.9 Hypertensive chronic kidney disease with stage 1 through stage 4 chronic kidney disease, or unspecified chronic kidney disease; N89.8 Other specified noninflammatory disorders of vagina; Z85.41 Personal history of malignant neoplasm of cervix uteri; Z87.891 Personal history of nicotine dependence; E78.00 Pure hypercholesterolemia, unspecified; H40.9 Unspecified glaucoma; Z93.3 Colostomy status; R26.81 Unsteadiness on feet; M19.90 Unspecified osteoarthritis, unspecified site; Z87.440 Personal history of urinary (tract) infections; F32.9 Major depressive disorder, single episode, unspecified; F41.9 Anxiety disorder, unspecified; D72.829 Elevated white blood cell count, unspecified; Z79.2 Long term (current) use of antibiotics

== ENCOUNTER 2016-10-26 13:28 | Inpatient (IN) | payer MEDICARE, OTHER ==
[2016-10-26 13:28] VITALS: BMI 40.5
--- NOTE | 2016-10-26 14:22 | ED PDOC ---
HPI: Abdomen Time Seen by Provider: 10/26/16 13:54 Chief Complaint (Nursing): Abdominal Pain Chief Complaint (Provider): GI problem History Per: Patient History/Exam Limitations: no limitations Onset/Duration Of Symptoms: Hrs (this morning, approx 6x hours ) Current Symptoms Are (Timing): Still Present Severity: Moderate Location Of Pain/Discomfort: RLQ (pain on palpation) Associated Symptoms: Nausea, Vomiting, Urinary Symptoms (hematuria). denies: Fever Additional Complaint(s): 81 year old female patient presents to the ED with complaints of nausea and vomiting. She was in TCU for 6x days for an incision and drainage, and this morning (6x hours [employer] to ED) she started vomiting (non bloody). She has associated symptoms of hematuria and RLQ abdominal pain to palpation, but denies having abdominal pain otherwise. She also denies having chest pain and a fever. PMD: Mamadou Beckman MD Past Medical History Reviewed: Historical Data, Nursing Documentation, Vital Signs Vital Signs: Last Vital Signs Temp 97.8 F 10/26/16 13:33 Pulse 75 10/26/16 13:33 Resp 19 10/26/16 13:33 BP 127/77 10/26/16 13:33 Pulse Ox 100 10/26/16 14:43 - Medical History PMH: Anxiety, Arthritis, COPD, Depression, Diverticulitis, Gall Bladder Disease , HTN, Hypercholesterolemia, Chronic Kidney Disease Denies: HIV - Surgical History Surgical History: Cholecystectomy - Family History Family History: States: Unknown Family Hx - Social History Current smoker - smoking cessation education provided: Yes (10 cigarettes a day , 30 years) Alcohol: None Drugs: Denies - Home Medications Home Medications: Ambulatory Orders Medication Instructions Recorded Escitalopram [Lexapro] 60 mg PO DAILY 09/21/14 Metoprolol Tartrate [Lopressor] 25 mg PO DAILY #0 tab 11/14/14 Allopurinol 300 mg PO DAILY 05/12/15 Multivitamin/Iron/Folic Acid 1 tab PO DAILY 05/12/15 [Centrum Complete Multivit Tab] Acetaminophen [Tylenol 325mg tab] 650 mg PO Q4 PRN #0 tab 07/15/15 Latanoprost 0.005% Opht [Xalatan 1 drop OU HS #0 bottle 07/15/15 Opht] Atorvastatin [Lipitor] 10 mg PO HS 12/05/15 Lactobacillus Acidophilus [Bacid 1 cap PO BID #20 cap 12/10/15 Acidophilus] Timolol 0.5% Ophth [Timoptic 0.5% 1 drop OU DAILY 12/20/15 Ophth Soln] Albuterol/Ipratropium [Duoneb 3 3 ml INH RQ6 PRN #0 neb 12/21/15 mg/0.5 mg (3 ml) UD] Famotidine [Pepcid] 20 mg PO DAILY@2100 #0 tab 12/21/15 Mirtazapine [Remeron] 7.5 mg PO HS PRN #0 tab 12/21/15 Multivitamin [Multi-Delyn Liquid] 5 ml PO DAILY #0 syr 12/21/15 - Allergies Allergies/Adverse Reactions: Allergies Allergy/AdvReac Type Severity Reaction Status Date / Time No Known Allergies Allergy Verified 10/20/16 16:07 Review of Systems ROS Statement: Except As Marked, All Systems Reviewed And Found Negative Constitutional: Negative for: Fever Cardiovascular: Negative for: Chest Pain Gastrointestinal: Positive for: Nausea, Vomiting, Abdominal Pain (RLQ on palpation only) Genitourinary Female: Positive for: Incontinence, Hematuria Physical Exam - Reviewed Nursing Documentation Reviewed: Yes Vital Signs Reviewed: Yes - Physical Exam Appears: Positive for: Well, Non-toxic, No Acute Distress Head Exam: Positive for: ATRAUMATIC, NORMOCEPHALIC Skin: Positive for: Normal Color, Warm, Dry ENT: Positive for: Other (mouth is dry, lips are dry) Neck: Positive for: Normal, Supple Cardiovascular/Chest: Positive for: Regular Rate, Rhythm, Chest Non Tender. Negative for: Murmur Respiratory: Positive for: Normal Breath Sounds. Negative for: Respiratory Distress Gastrointestinal/Abdominal: Positive for: Bowel Sounds (normal), Tenderness (RLQ ) Extremity: Positive for: Normal ROM. Negative for: Pedal Edema Neurologic/Psych: Positive for: Alert, Oriented (3x) - ECG O2 Sat by Pulse Oximetry: 100 (RA) Pulse Ox Interpretation: Normal Medical Decision Making Medical Decision Makin:54 Initial impression: 81 year old female with hematuria and vomiting. Initial plan: * vital signs Qshift * admit to med/surg 14:23 Admit Patient: Discussed with Mamadou Beckman MD. Patient will be admitted to hospital to med/ surg unit. Patient is stable. Discussed results and plan to admit with patient who expresses understanding. All questions answered and there is agreement with the plan. Scribe Attestation: Documented by Princess Cook, acting as a scribe for Kassidy Salmeron MD. Provider Scribe Attestation: All medical record entries made by the Scribe were at my direction and personally dictated by me. I have reviewed the chart and agree that the record accurately reflects my personal performance of the history, physical exam, medical decision making, and the department course for this patient. I have also personally directed, reviewed, and agree with the discharge instructions and disposition. Disposition - Clinical Impression Clinical Impression: Abdominal pain - Patient ED Disposition Is Patient to be Admitted: Yes Discussed With : Mamadou Beckman Doctor Will See Patient In The: Hospital - Disposition Disposition: Transfer of Care Disposition Time: 14:23 Condition: STABLE - Pt Status Changed To: Hospital Disposition Of: Inpatient - Admit Certification Admit to Inpatient:: After my assessment, the patient will require hospitalization for at least two midnights. This is because of the severity of symptoms shown, intensity of services needed, and/or the medical risk in this patient being treated as an outpatient. - POA Present On Arrival: None
[2016-10-26] MEDS ORDERED: Albuterol-Ipratrop 3 mg / 0.5 (3 ml) UD INH PRN (15:46)
[2016-10-26] MEDS ORDERED: ceFAZolin 1 GM in Sodium Chloride 0.9% 100 ML IVPB SCH (21:00)
[2016-10-26 21:54] VITALS: RESP 20
[2016-10-26] MEDS: Latanoprost 0.005% Opht SOUTION OU SCH (23:13)
[2016-10-27] MEDS: ceFAZolin 1 GM in Sodium Chloride 0.9% 100 ML IVPB SCH ×3 (01:22→18:06)
--- NOTE | 2016-10-27 08:06 | CP.PCM.HP ---
<Cee Montero - Last Filed: 10/27/16 15:36> History of Present Illness - History of Present Illness History of Present Illness: Pt is a 81 y/o female was initially in TCU for rehab and completion of IV antibiotics for reccurrent abdominal abscess, but started feeling very nauseous and vomiting for days and also started having hematuria so was discharged from TCU to be admitted to the medical unit medical management. Pt did not have any fevers , dizziness, back pain, sob. Present on Admission - Present on Admission Any Indicators Present on Admission: No Review of Systems - Review of Systems All systems: reviewed and no additional remarkable complaints except Review of Systems: per HPI Past Patient History - Infectious Disease Hx of Infectious Diseases: None - Past Medical History & Family History Past Medical History?: Yes - Past Social History Smoking Status: Current Some Days Smoker - CARDIAC Hx Cardiac Disorders: Yes Hx Hypercholesterolemia: Yes - PULMONARY Hx Respiratory Disorders: Yes Hx Chronic Obstructive Pulmonary Disease (COPD): Yes - NEUROLOGICAL Hx Neurological Disorder: No - HEENT Hx HEENT Problems: Yes Hx Glaucoma: Yes - RENAL Hx Chronic Kidney Disease: No - ENDOCRINE/METABOLIC Hx Endocrine Disorders: No - HEMATOLOGICAL/ONCOLOGICAL Hx Blood Disorders: No Hx AIDS: No Hx Human Immunodeficiency Virus (HIV): No - INTEGUMENTARY Hx Dermatological Problems: No - MUSCULOSKELETAL/RHEUMATOLOGICAL Hx Musculoskeletal Disorders: No Hx Falls: No - GASTROINTESTINAL Hx Gastrointestinal Disorders: Yes Hx Diverticulitis: Yes Hx Gall Bladder Disease: Yes - GENITOURINARY/GYNECOLOGICAL Hx Genitourinary Disorders: Yes Hx Cervical Cancer: Yes Hx Incontinence: Yes Hx Urinary Tract Infection: Yes Other/Comment: [place]-uro fistula - PSYCHIATRIC Hx Psychophysiologic Disorder: No Hx Substance Use: No - SURGICAL HISTORY Hx Surgeries: Yes Hx Cholecystectomy: Yes Other/Comment: I&D of abscess - ANESTHESIA Hx Anesthesia: Yes Hx Anesthesia Reactions: No Hx Malignant Hyperthermia: No Meds Allergies/Adverse Reactions: Allergies Allergy/AdvReac Type Severity Reaction Status Date / Time No Known Allergies Allergy Verified 10/20/16 16:07 Physical Exam - Constitutional Appears: Non-toxic, No Acute Distress - Head Exam Head Exam: NORMOCEPHALIC - Eye Exam Eye Exam: Normal appearance - ENT Exam ENT Exam: Mucous Membranes Moist - Respiratory Exam Respiratory Exam: Clear to Auscultation Bilateral, NORMAL BREATHING PATTERN. absent: Rhonchi, Wheezes - Cardiovascular Exam Cardiovascular Exam: REGULAR RHYTHM, +S1, +S2 - GI/Abdominal Exam GI & Abdominal Exam: Normal Bowel Sounds, Soft - Extremities Exam Extremities exam: Positive for: pedal edema. Negative for: calf tenderness - Neurological Exam Neurological exam: Alert, CN II-XII Intact, Oriented x3 Results - Vital Signs Recent Vital Signs: Last Vital Signs Temp 98.5 F 10/26/16 21:53 Pulse 84 10/26/16 21:53 Resp 20 10/26/16 21:53 BP 155/83 H 10/26/16 21:53 Pulse Ox 98 10/26/16 21:53 - Labs Result Diagrams: 10/27/16 09:52 10/27/16 09:52 Assessment & Plan - Assessment and Plan (Free Text) Assessment: 81 y/o female admitted for hematuria, UTI and Ct abdomen showing mechanical obstruction due to hernia Plan: 1. hematuria Renal and bladder ultrasound -does not sure any abnormalities mostly due to UTI- ID consulted for antibiotic recommendation 2. Mechnical bowel obstruction zofran and reglan for nausea prn Surgery consulted Manage per surgery 3. CKD stage 4 avoid nephrotoxic agents monitor BUN/Cr 4. COPD, controlled -duoneb prn for wheezing, sob 5. HTN, controlled continue home meds 6. DVT prophylaxis lovenox 40mg SC 6. Diet- NPO, progress as tolerated IVF <Mamadou Beckman - Last Filed: 10/29/16 11:31> Results - Vital Signs Recent Vital Signs: Last Vital Signs Temp 97.8 F 10/29/16 08:40 Pulse 66 10/29/16 09:20 Resp 20 10/29/16 08:40 BP 136/79 10/29/16 09:20 Pulse Ox 97 10/29/16 08:40 - Labs Result Diagrams: 10/29/16 06:30 10/29/16 06:30 Labs: Laboratory Results - last 24 hr 10/28/16 10/28/16 10/29/16 14:11 15:01 06:30 WBC 11.9 H RBC 3.76 L Hgb 11.4 L Hct 35.8 MCV 95.2 MCH 30.4 MCHC 32.0 L RDW 15.5 H Plt Count 369 MPV 8.7 Neut % (Auto) 79.4 H Lymph % (Auto) 11.3 L Motley % (Auto) 8.0 Eos % (Auto) 0.9 Baso % (Auto) 0.4 Neut # 9.4 H Lymph # 1.3 Motley # 1.0 H Eos # 0.1 Baso # 0.0 Sodium 147 Potassium 3.7 Chloride 114 H Carbon Dioxide 21 L Anion Gap 16 BUN 31 H Creatinine 1.3 H Est GFR ( Amer) 48 Est GFR (Non-Af Amer) 40 Random Glucose 113 H Calcium 9.4 Total Bilirubin 0.2 AST 27 ALT 18 Alkaline Phosphatase 87 Total Protein 6.8 Albumin 3.2 L Globulin 3.6 Albumin/Globulin Ratio 0.9 L Lipase 446 H Urine Color Red Urine Clarity Cloudy Urine pH 6.0 Ur Specific [place] 1.020 Urine Protein 100 Urine Glucose (UA) 50 Urine Ketones Negative Urine Blood Large Urine Nitrate Negative Urine Bilirubin Negative Urine Urobilinogen 0.2-1.0 Ur Leukocyte Esterase Small Urine RBC (Auto) 4927 H Urine WBC Clumps (Auto) Many H Urine Microscopic WBC 459 H Assessment & Plan - Assessment and Plan (Free Text) Plan: I was present during evaluation and discussed with Dr Winston cooper plans of care and management Mamadou Beckman M.D.
[2016-10-27] MEDS ORDERED: Multiple Vitamins Oral Solution PO SCH (09:00)
--- NOTE | 2016-10-27 09:20 | CP.PCM.CON ---
<Ghada Jensen - Last Filed: 10/27/16 11:53> History of Present Illness - History of Present Illness History of Present Illness: GENERAL SURGERY CONSULT NOTE FOR DR. OSEGUERA: This is a 81 yo female pt w/ pmhx HTN, COPD, CKD stage IV, cervical CA, recurrent mons pubis abscess, s/p I&D of mons pubis abscess POD #10 who was seen at bedside this morning. Has been experiencing persistent nausea and vomiting since Monday10/21/16. She states that this began several hours following a meal of corned beef and cabbage for [place]. Reports vomiting once last night and again earlier this morning. Says she has some abdominal pain today but somewhat improved from yesterday. Says she has been passing loose dark colored stool to the ostomy bag. Denies f/c/sob/cp. Does say she is thirsty today. Denies any pain or discomfort to the surgical site of the mons pubis. Also complains of some hematuria. Denies any burning on urination today. Denies any other problems at this time. Review of Systems - Review of Systems Review of Systems: ROS as per HPI. All other systems reviewed and found to be negative - Constitutional Constitutional: As Per HPI Past Patient History - Infectious Disease Hx of Infectious Diseases: None - Past Medical History & Family History Past Medical History?: Yes - Past Social History Smoking Status: Current Some Days Smoker - CARDIAC Hx Cardiac Disorders: Yes Hx Hypercholesterolemia: Yes - PULMONARY Hx Respiratory Disorders: Yes Hx Chronic Obstructive Pulmonary Disease (COPD): Yes - NEUROLOGICAL Hx Neurological Disorder: No - HEENT Hx HEENT Problems: Yes Hx Glaucoma: Yes - RENAL Hx Chronic Kidney Disease: No - ENDOCRINE/METABOLIC Hx Endocrine Disorders: No - HEMATOLOGICAL/ONCOLOGICAL Hx Blood Disorders: No Hx AIDS: No Hx Human Immunodeficiency Virus (HIV): No - INTEGUMENTARY Hx Dermatological Problems: No - MUSCULOSKELETAL/RHEUMATOLOGICAL Hx Musculoskeletal Disorders: No Hx Falls: No - GASTROINTESTINAL Hx Gastrointestinal Disorders: Yes Hx Diverticulitis: Yes Hx Gall Bladder Disease: Yes - GENITOURINARY/GYNECOLOGICAL Hx Genitourinary Disorders: Yes Hx Cervical Cancer: Yes Hx Incontinence: Yes Hx Urinary Tract Infection: Yes Other/Comment: [place]-uro fistula - PSYCHIATRIC Hx Psychophysiologic Disorder: No Hx Substance Use: No - SURGICAL HISTORY Hx Surgeries: Yes Hx Cholecystectomy: Yes Other/Comment: I&D of abscess - ANESTHESIA Hx Anesthesia: Yes Hx Anesthesia Reactions: No Hx Malignant Hyperthermia: No Meds Allergies/Adverse Reactions: Allergies Allergy/AdvReac Type Severity Reaction Status Date / Time No Known Allergies Allergy Verified 10/20/16 16:07 - Medications Medications: Current Medications Albuterol/Ipratropium (Duoneb 3 Mg/0.5 Mg (3 Ml) Ud) 3 ml INH RQ6 PRN PRN Reason: Shortness of Breath Allopurinol (Zyloprim) 300 mg PO DAILY [facility] Atorvastatin Calcium (Lipitor) 10 mg PO HS [facility] Last Admin: 10/26/16 23:13 Dose: 10 mg Escitalopram Oxalate (Lexapro) 60 mg PO DAILY [facility] Famotidine (Pepcid) 20 mg PO DAILY@2100 [facility] Last Admin: 10/26/16 23:13 Dose: 20 mg Piperacillin Sod/Tazobactam (Sod 2.25 gm/ Sodium Chloride) 100 mls @ 100 mls/ hr IVPB Q8 [facility] Last Admin: 10/27/16 01:23 Dose: 100 mls/hr Cefazolin Sodium 1 gm/ Sodium (Chloride) 100 mls @ 100 mls/hr IVPB Q8 [facility] Last Admin: 10/27/16 01:22 Dose: Not Given Lactobacillus Acidophilus (Bacid Acidophilus) 1 cap PO BID [facility] Latanoprost (Xalatan Opht) 1 drop OU HS [facility] Last Admin: 10/26/16 23:13 Dose: 1 drop Metoclopramide HCl (Reglan) 10 mg IVP Q6 PRN PRN Reason: Nausea/Vomiting Metoprolol Succinate (Toprol Xl) 25 mg PO DAILY [facility] Mirtazapine (Remeron) 7.5 mg PO HS PRN PRN Reason: Sleep Last Admin: 10/26/16 23:15 Dose: 7.5 mg Multivitamins/Minerals (Therapeutic-M Tab) 1 tab PO DAILY [facility] Multivitamins/Vitamin C (Multi-Delyn Liquid) 5 ml PO DAILY [facility] Ondansetron HCl (Zofran Inj) 4 mg IVP Q6 PRN PRN Reason: Nausea/Vomiting Last Admin: 10/26/16 21:36 Dose: 4 mg Timolol Maleate (Timoptic 0.5% Ophth Soln) 1 drop OU DAILY [facility] Physical Exam - Constitutional Appears: Non-toxic, No Acute Distress - Head Exam Head Exam: NORMAL INSPECTION - Eye Exam Eye Exam: EOMI, Normal appearance - Respiratory Exam Respiratory Exam: NORMAL BREATHING PATTERN. absent: Respiratory Distress - Cardiovascular Exam Cardiovascular Exam: REGULAR RHYTHM - GI/Abdominal Exam GI & Abdominal Exam: Soft, Tenderness (RLQ tenderness on palpation ). absent: Distended, Firm, Guarding Additional comments: Colostomy in place with dark colored stool noted in ostomy bag - Neurological Exam Neurological exam: Alert, CN II-XII Intact, Oriented x3 - Skin Skin Exam: Intact, Normal Color, Warm Additional comments: Incision site at mons pubis appears well healed, no erythema, no malodor, no drainage, no pain on palpation Results - Vital Signs Recent Vital Signs: Last Vital Signs Temp 98.2 F 10/27/16 08:23 Pulse 84 10/27/16 08:23 Resp 20 10/27/16 08:23 BP 160/87 H 10/27/16 08:23 Pulse Ox 96 10/27/16 08:23 Assessment & Plan - Assessment and Plan (Free Text) Assessment: 81 yo female pt admitted for 1) abdominal pain w/ possible small bowel obstruction secondary to right parasagittal ventral hernia & 2) UTI Plan: - Pt seen and examined at bedside - Chart, labs, vitals reviewed: afebrile, + leukocytosis (16.3 yesterday) - Abd/pelvis CT (10/25/16): possible mechanical small-bowel obstruction secondary to right parasagittal ventral hernia. - Small bowel & upper GI series ordered today (r/o obstruction) - Keep NPO for now - Abx per ID (Dr. Irizarry on consult) - Zofran & Reglan prn - Morphine prn for pain - Pt evaluated w/ Dr. Oseguera present and plan discussed -Ghada Jensen, PGY-1 <Manuel Oseguera - Last Filed: 10/27/16 12:02> History of Present Illness - History of Present Illness History of Present Illness: Patient was seen and examined at the bedside. Agree with resident's note above Meds - Medications Medications: Current Medications Albuterol/Ipratropium (Duoneb 3 Mg/0.5 Mg (3 Ml) Ud) 3 ml INH RQ6 PRN PRN Reason: Shortness of Breath Allopurinol (Zyloprim) 300 mg PO DAILY [facility] Last Admin: 10/27/16 09:41 Dose: 300 mg Atorvastatin Calcium (Lipitor) 10 mg PO HS [facility] Last Admin: 10/26/16 23:13 Dose: 10 mg Escitalopram Oxalate (Lexapro) 60 mg PO DAILY [facility] Last Admin: 10/27/16 09:40 Dose: 60 mg Famotidine (Pepcid) 20 mg PO DAILY@2100 [facility] Last Admin: 10/26/16 23:13 Dose: 20 mg Piperacillin Sod/Tazobactam (Sod 2.25 gm/ Sodium Chloride) 100 mls @ 100 mls/ hr IVPB Q8 [facility] Last Admin: 10/27/16 01:23 Dose: 100 mls/hr Cefazolin Sodium 1 gm/ Sodium (Chloride) 100 mls @ 100 mls/hr IVPB Q8 [facility] Last Admin: 10/27/16 09:39 Dose: 100 mls/hr Dextrose/Sodium Chloride (Dextrose 5%/0.45% Ns 1000 Ml) 1,000 mls @ 100 mls/hr IV .Q10H [facility] Stop: 10/28/16 10:16 Last Admin: 10/27/16 10:16 Dose: 100 mls/hr Lactobacillus Acidophilus (Bacid Acidophilus) 1 cap PO BID [facility] Last Admin: 10/27/16 09:39 Dose: 1 cap Latanoprost (Xalatan Opht) 1 drop OU HS [facility] Last Admin: 10/26/16 23:13 Dose: 1 drop Metoclopramide HCl (Reglan) 10 mg IVP Q6 PRN PRN Reason: Nausea/Vomiting Metoprolol Succinate (Toprol Xl) 25 mg PO DAILY [facility] Last Admin: 10/27/16 09:41 Dose: 25 mg Mirtazapine (Remeron) 7.5 mg PO HS PRN PRN Reason: Sleep Last Admin: 10/26/16 23:15 Dose: 7.5 mg Morphine Sulfate (Morphine) 1 mg IVP Q4 PRN PRN Reason: Pain, moderate (4-7) Multivitamins/Minerals (Therapeutic-M Tab) 1 tab PO DAILY [facility] Last Admin: 10/27/16 09:40 Dose: 1 tab Ondansetron HCl (Zofran Inj) 4 mg IVP Q6 PRN PRN Reason: Nausea/Vomiting Last Admin: 10/26/16 21:36 Dose: 4 mg Timolol [facility]ate [facility]) 1 drop OU DAILY [facility] Last Admin: 10/27/16 09:41 Dose: 1 drop Results - Vital Signs Recent Vital Signs: Last Vital Signs Temp 98.2 F 10/27/16 08:23 Pulse 84 10/27/16 09:41 Resp 20 10/27/16 08:23 BP 160/87 H 10/27/16 09:41 Pulse Ox 96 10/27/16 08:23
[2016-10-27] MEDS: Lactobacillus Acidophilus 500 MU Cap PO SCH ×2 (09:39→18:07)
[2016-10-27] MEDS: Multivitamin With Minerals Tab PO SCH (09:40)
[2016-10-27] MEDS: Metoprolol Succinate 25 mg XL Tab PO SCH (09:41)
[2016-10-27] MEDS: Dextrose 5%/0.45% NS 1,000 ML IV SCH ×2 (10:16→22:25)
[2016-10-27 13:12] LABS: BASO # 0.1 K/uL (0.0-0.2); BASO % 0.5 % (0.0-2.0); EOS # 0.3 K/uL (0.0-0.7); HEMATOCRIT 37.6 % (34.0-47.0); LYMPH # 1.4 K/uL (1.0-4.3); LYMPH % 10.7 % (20.0-40.0); MEAN CELL VOLUME 95.2 fl (81.0-99.0); MEAN CORPUSCULAR HEMOGLOBIN 30.3 pg (27.0-31.0); MEAN CORPUSCULAR HGB CONC 31.8 g/dL (33.0-37.0); MEAN PLATELET VOLUME 8.7 fl (7.2-11.7); MONO # 1.1 K/uL (0.0-0.8); MONO % 8.4 % (0.0-10.0); NEUT # 10.4 K/uL (1.8-7.0); NEUT % 78.4 % (50.0-75.0); RED CELL DISTRIBUTION WIDTH 15.2 % (11.5-14.5); WHITE BLOOD COUNT 13.3 K/uL (4.8-10.8)
[2016-10-27 13:21] LABS: ALB/GLOB RATIO 0.9 (1.0-2.1); BILIRUBIN,TOTAL 0.2 mg/dl (0.2-1.3); CALCIUM 9.6 mg/dL (8.4-10.2)
[2016-10-27] MEDS ORDERED: Barium Sulfate Susp 0.1% w/v, 0.1% w/w 450 mL Bottle PO ONE (14:56)
--- NOTE | 2016-10-27 19:03 | CP.PCM.CON ---
History of Present Illness - History of Present Illness History of Present Illness: 81 yo female Has been experiencing persistent nausea and vomiting since Monday. She states that this began several hours following a meal of corned beef and cabbage for [place]. Reports vomiting once last night and again earlier this morning. HAS POSSIBLE BOWEL OBSTRUCTION IV RX IN PROGRESS pt w/ pmhx HTN, COPD, CKD stage IV, cervical CA, recurrent mons pubis abscess, s /p I&D of mons pubis abscess POD #10 Review of Systems - Constitutional Constitutional: As Per HPI, Anorexia, Malaise - EENT Eyes: absent: As Per HPI, Blind Spots, Blurred Vision, Change in Vision, Decreased Night Vision, Diplopia, Discharge, Dry Eye, Exophthalmos, Floaters, Irritation, Itchy Eyes, Loss of Peripheral Vision, Pain, Photophobia, Requires Corrective Lenses, Sees Flashes, Spots in Vision, Tunnel Vision, Other Visual Disturbances, Loss of Vision, Other Ears: absent: As Per HPI, Decreased Hearing, Ear Discharge, Ear Pain, Tinnitus, Abnormal Hearing, Disequilibrium, Dizziness, Other Nose/Mouth/Throat: absent: As Per HPI, Epistaxis, Nasal Congestion, Nasal Discharge, Nasal Obstruction, Nasal Trauma, Nose Pain, Post Nasal Drip, Sinus Pain, Sinus Pressure, Bleeding Gums, Change in Voice, Dental Pain, Dry Mouth, Dysphagia, Halitosis, Hoarsness, Lip Swelling, Mouth Lesions, Mouth Pain, Odynophagia, Sore Throat, Throat Swelling, Tongue Swelling, Facial Pain, Neck Pain, Neck Mass, Other - Breasts Breasts: absent: As Per HPI, Change in Shape, Mass, Pain, Nipple Discharge, Nipple Inversion, Skin Changes, Swelling, Other - Cardiovascular Cardiovascular: absent: As Per HPI, Acrocyanosis, Chest Pain, Chest Pain at Rest , Chest Pain with Activity, Claudication, Diaphoresis, Dyspnea, Dyspnea on Exertion, Edema, Irregular Heart Rhythm, Pain Radiating to Arm/Neck/Jaw, Leg Edema, Leg Ulcers, Lightheadedness, Orthopnea, Palpitations, Paroxysmal Nocturnal Dyspnea, Pedal Edema, Radiating Pain, Rapid Heart Rate, Slow Heart Rate, Syncope, Other - Respiratory Respiratory: absent: As Per HPI, Cough, Dyspnea, Hemoptysis, Dyspnea on Exertion , Wheezing, Snoring, Stridor, Pain on Inspiration, Chest Congestion, Excessive Mucous Production, Change in Mucous Color, Pain with Coughing, Other - Gastrointestinal Gastrointestinal: As Per HPI - Genitourinary Genitourinary: absent: As Per HPI, Change in Urinary Stream, Difficulty Urinating, Dysuria, Flank Pain, Hematuria, Pyuria, Nocturia, Urinary Incontinence, Urinary Frequency, Urinary Hesitance, Urinary Urgency, Voiding Freq/Small Amts, Freq UTI, Hx Renal/Bladder Calculi, Hx /Renal Surgery, Bladder Distension, Other - Reproductive: Female Reproductive:Female: absent: As Per HPI, Amenorrhea, Amenorrhea/ Control, Currently Menstual, Cycle <21 Days, Cycle >35 Days, Cycle Variable, Menses 1-7 Days, Menses >/= 8 Days, Menses Variable, Cycle > 4 Weeks Between, No Menses for 6 Months, Heavy Menses, Light Menses, Normal Menses, Spotting Between Cycles , S/P Hysterectomy, Menopausal, Post Menopausal, Premenarche, Abnormal Vaginal Bleeding, Dysmenorrhea, Dyspareunia, Genital Lesions, Genital Pruritis, Pelvic Pain, Prolapse Symptoms, Sexual Dysfunction, Vaginal Discharge, Vaginal Dryness , Vaginal Odor, Vaginal Pruritis, Other - Menstruation Menstruation: absent: As Per HPI, Amenorrhea, Amenorrhea/ Control, Currently Menstual, Cycle <21 Days, Cycle >35 Days, Cycle Variable, Menses 1-7 Days, Menses >/= 8 Days, Menses Variable, Cycle > 4 Weeks Between, No Menses for 6 Months, Heavy Menses, Light Menses, Normal Menses, Spotting Between Cycles , S/P Hysterectomy, Menopausal, Post Menopausal, Premenarche, Abnormal Vaginal Bleeding, Dysmenorrhea, Other - Musculoskeletal Musculoskeletal: absent: As Per HPI, Abnormal Gait, Arthralgias, Atrophy, Back Pain, Deformity, Joint Swelling, Limited Range of Motion, Loss of Height, Muscle Cramps, Muscle Weakness, Myalgias, Neck Pain, Numbness, Radiating Pain into Limb, Stiffness, Tingling, Other - Integumentary Integumentary: As Per HPI - Neurological Neurological: absent: As Per HPI, Abnormal Gait, Abnormal Hearing, Abnormal Movements, Abnormal Speech, Behavioral Changes, Burning Sensations, Confusion, Convulsions, Disequilibrium, Dizziness, Numbness, Focal Weakness, Frequent Falls , Headaches, Lack of Coordination, Loss of Vision, Memory Loss, Paresthesias, Radicular Pain, Restless Legs, Sensory Deficit, Syncope, Tingling, Tremor, Vertigo, Weakness, Other Visual Disturbances, Other - Psychiatric Psychiatric: absent: As Per HPI, Abnormal Sleep Pattern, Anhedonia, Anxiety, Auditory Hallucinations, Behavioral Changes, Change in Appetite, Change in Libido, Confusion, Depression, Difficulty Concentrating, Hallucinations, Homicidal Ideation, Hopelessness, Irritability, Memory Loss, Mood Swings, Panic Attacks, Paranoia, Suicidal Ideation, Visual Hallucinations, Tactile Hallucinations, Other - Endocrine Endocrine: absent: As Per HPI, Change in Body Appearance, Change in Libido, Cold Intolorance, Deepening of Voice, Excessive Sweating, Fatigue, Flushing, Heat Intolorance, Increase in Ring/Shoe/Hat Size, Palpitations, Polydipsia, Polyphagia, Polyuria, Other - Hematologic/Lymphatic Hematologic: absent: As Per HPI, Easy Bleeding, Easy Bruising, Lymphadenopathy, Other Past Patient History - Infectious Disease Hx of Infectious Diseases: None - Past Medical History & Family History Past Medical History?: Yes - Past Social History Smoking Status: Current Some Days Smoker - CARDIAC Hx Cardiac Disorders: Yes Hx Hypercholesterolemia: Yes - PULMONARY Hx Respiratory Disorders: Yes Hx Chronic Obstructive Pulmonary Disease (COPD): Yes - NEUROLOGICAL Hx Neurological Disorder: No - HEENT Hx HEENT Problems: Yes Hx Glaucoma: Yes - RENAL Hx Chronic Kidney Disease: No - ENDOCRINE/METABOLIC Hx Endocrine Disorders: No - HEMATOLOGICAL/ONCOLOGICAL Hx Blood Disorders: No Hx AIDS: No Hx Human Immunodeficiency Virus (HIV): No - INTEGUMENTARY Hx Dermatological Problems: No - MUSCULOSKELETAL/RHEUMATOLOGICAL Hx Musculoskeletal Disorders: No Hx Falls: No - GASTROINTESTINAL Hx Gastrointestinal Disorders: Yes Hx Diverticulitis: Yes Hx Gall Bladder Disease: Yes - GENITOURINARY/GYNECOLOGICAL Hx Genitourinary Disorders: Yes Hx Cervical Cancer: Yes Hx Incontinence: Yes Hx Urinary Tract Infection: Yes Other/Comment: [place]-uro fistula - PSYCHIATRIC Hx Psychophysiologic Disorder: No Hx Substance Use: No - SURGICAL HISTORY Hx Surgeries: Yes Hx Cholecystectomy: Yes Other/Comment: I&D of abscess - ANESTHESIA Hx Anesthesia: Yes Hx Anesthesia Reactions: No Hx Malignant Hyperthermia: No Meds Allergies/Adverse Reactions: Allergies Allergy/AdvReac Type Severity Reaction Status Date / Time No Known Allergies Allergy Verified 10/20/16 16:07 - Medications Medications: Current Medications Albuterol/Ipratropium (Duoneb 3 Mg/0.5 Mg (3 Ml) Ud) 3 ml INH RQ6 PRN PRN Reason: Shortness of Breath Allopurinol (Zyloprim) 300 mg PO DAILY [facility] Last Admin: 10/27/16 09:41 Dose: 300 mg Atorvastatin Calcium (Lipitor) 10 mg PO HS [facility] Last Admin: 10/26/16 23:13 Dose: 10 mg Escitalopram Oxalate (Lexapro) 60 mg PO DAILY [facility] Last Admin: 10/27/16 09:40 Dose: 60 mg Famotidine (Pepcid) 20 mg PO DAILY@2100 [facility] Last Admin: 10/26/16 23:13 Dose: 20 mg Piperacillin Sod/Tazobactam (Sod 2.25 gm/ Sodium Chloride) 100 mls @ 100 mls/ hr IVPB Q8 [facility] Last Admin: 10/27/16 11:00 Dose: 100 mls/hr Cefazolin Sodium 1 gm/ Sodium (Chloride) 100 mls @ 100 mls/hr IVPB Q8 [facility] Last Admin: 10/27/16 18:06 Dose: 100 mls/hr Dextrose/Sodium Chloride (Dextrose 5%/0.45% Ns 1000 Ml) 1,000 mls @ 100 mls/hr IV .Q10H [facility] Stop: 10/28/16 10:16 Last Admin: 10/27/16 10:16 Dose: 100 mls/hr Lactobacillus Acidophilus (Bacid Acidophilus) 1 cap PO BID [facility] Last Admin: 10/27/16 18:07 Dose: 1 cap Latanoprost (Xalatan Opht) 1 drop OU HS [facility] Last Admin: 10/26/16 23:13 Dose: 1 drop Metoclopramide HCl (Reglan) 10 mg IVP Q6 PRN PRN Reason: Nausea/Vomiting Metoprolol Succinate (Toprol Xl) 25 mg PO DAILY [facility] Last Admin: 10/27/16 09:41 Dose: 25 mg Mirtazapine (Remeron) 7.5 mg PO HS PRN PRN Reason: Sleep Last Admin: 10/26/16 23:15 Dose: 7.5 mg Morphine Sulfate (Morphine) 1 mg IVP Q4 PRN PRN Reason: Pain, moderate (4-7) Multivitamins/Minerals (Therapeutic-M Tab) 1 tab PO DAILY [facility] Last Admin: 10/27/16 09:40 Dose: 1 tab Ondansetron HCl (Zofran Inj) 4 mg IVP Q6 PRN PRN Reason: Nausea/Vomiting Last Admin: 10/26/16 21:36 Dose: 4 mg Timolol Maleate (Timoptic 0.5% Ophth Soln) 1 drop OU DAILY [facility] Last Admin: 10/27/16 09:41 Dose: 1 drop Physical Exam - Constitutional Appears: Non-toxic, Chronically Ill - Head Exam Head Exam: NORMOCEPHALIC - Eye Exam Eye Exam: absent: Scleral icterus - ENT Exam ENT Exam: Mucous Membranes Dry, Normal External Ear Exam - Neck Exam Neck exam: Negative for: Lymphadenopathy, Thyromegaly - Respiratory Exam Respiratory Exam: Decreased Breath Sounds, Clear to Auscultation Bilateral - Cardiovascular Exam Cardiovascular Exam: REGULAR RHYTHM, +S1, +S2 - GI/Abdominal Exam GI & Abdominal Exam: Diminished Bowel Sounds, Distended, Soft, Tenderness. absent: Rebound, Rigid - Rectal Exam Rectal Exam: Deferred - Exam Exam: NORMAL INSPECTION - Extremities Exam Extremities exam: Negative for: calf tenderness, pedal edema - Back Exam Back exam: absent: CVA tenderness (L), CVA tenderness (R) - Neurological Exam Neurological exam: Alert, CN II-XII Intact, Oriented x3, Reflexes Normal - Psychiatric Exam Psychiatric exam: Normal Mood Results - Vital Signs Recent Vital Signs: Last Vital Signs Temp 97.7 F 10/27/16 17:24 Pulse 75 10/27/16 17:24 Resp 20 10/27/16 17:24 BP 130/78 10/27/16 17:24 Pulse Ox 97 10/27/16 17:24 - Labs Result Diagrams: 10/27/16 09:52 10/27/16 09:52 Labs: Laboratory Results - last 24 hr 10/27/16 09:52 WBC 13.3 H RBC 3.95 Hgb 12.0 Hct 37.6 MCV 95.2 MCH 30.3 MCHC 31.8 L RDW 15.2 H Plt Count 401 H MPV 8.7 Neut % (Auto) 78.4 H Lymph % (Auto) 10.7 L [place] % (Auto) 8.4 Eos % (Auto) 2.0 Baso % (Auto) 0.5 Neut # 10.4 H Lymph # 1.4 [place] # 1.1 H Eos # 0.3 Baso # 0.1 Sodium 142 Potassium 4.0 Chloride 113 H Carbon Dioxide 20 L Anion Gap 13 BUN 39 H Creatinine 1.6 H Est GFR ( Amer) 38 Est GFR (Non-Af Amer) 31 Random Glucose 124 H Calcium 9.6 Total Bilirubin 0.2 AST 32 ALT 24 Alkaline Phosphatase 89 Total Protein 7.0 Albumin 3.3 L Globulin 3.7 Albumin/Globulin Ratio 0.9 L Assessment & Plan (1) Abdominal pain Status: Acute (2) Abscess, suprapubic Status: Acute Priority: High (3) Bowel obstruction Status: Acute - Assessment and Plan (Free Text) Assessment: R/O ADHESIONS VS INFECTION
[2016-10-27] MEDS: Latanoprost 0.005% Opht SOUTION OU SCH (22:00)
[2016-10-28] MEDS: ceFAZolin 1 GM in Sodium Chloride 0.9% 100 ML IVPB SCH ×3 (01:30→17:03)
[2016-10-28] MEDS: Dextrose 5%/0.45% NS 1,000 ML IV SCH (06:17)
[2016-10-28 07:05] LABS: BASO # 0.1 K/uL (0.0-0.2); BASO % 0.7 % (0.0-2.0); EOS # 0.3 K/uL (0.0-0.7); EOS % 2.7 % (0.0-4.0); HEMATOCRIT 35.9 % (34.0-47.0); LYMPH # 1.7 K/uL (1.0-4.3); LYMPH % 13.1 % (20.0-40.0); MEAN CELL VOLUME 95.2 fl (81.0-99.0); MEAN CORPUSCULAR HGB CONC 32.5 g/dL (33.0-37.0); MEAN PLATELET VOLUME 8.7 fl (7.2-11.7); MONO # 1.4 K/uL (0.0-0.8); MONO % 10.7 % (0.0-10.0); NEUT # 9.4 K/uL (1.8-7.0); NEUT % 72.8 % (50.0-75.0); RED CELL DISTRIBUTION WIDTH 15.1 % (11.5-14.5); WHITE BLOOD COUNT 12.8 K/uL (4.8-10.8)
[2016-10-28 07:17] LABS: ALB/GLOB RATIO 0.9 (1.0-2.1); BILIRUBIN,TOTAL 0.3 mg/dl (0.2-1.3); CALCIUM 9.6 mg/dL (8.4-10.2); POTASSIUM 3.9 MMOL/L (3.6-5.0); TOTAL PROTEIN 7.1 G/DL (6.3-8.2)
--- NOTE | 2016-10-28 07:44 | CP.PCM.PN ---
<Ghada Jensen - Last Filed: 10/28/16 11:10> Subjective - Date & Time of Evaluation Date of Evaluation: 10/28/16 Time of Evaluation: 07:10 - Subjective Subjective: GENERAL SURGERY PROGRESS NOTE FOR DR. SINGER: 81 yo female pt seen and examined at the bedside this morning. Of note, s/p I&D of mons pubis abscess POD #11. Pt resting comfortably in bed at time of visit. Says the abdominal pain has completely resolved today. Reports 3 small episodes of vomiting overnight and describes the color as a "greenish-black", but denies any blood from the vomiting. Says she has been passing green colored loose stool into the ostomy bag. Says the nausea is much better this morning. Denies f /c/sob/cp. Says she feels hungry and thirsty. Denies any other complaints at this time. Objective - Vital Signs/Intake and Output Vital Signs (last 24 hours): Temp Pulse Resp BP Pulse Ox 98.5 F 71 20 124/74 96 10/27/16 22:00 10/27/16 22:00 10/27/16 22:00 10/27/16 22:00 10/27/16 22:00 - Medications Medications: Current Medications Albuterol/Ipratropium (Duoneb 3 Mg/0.5 Mg (3 Ml) Ud) 3 ml INH RQ6 PRN PRN Reason: Shortness of Breath Allopurinol (Zyloprim) 300 mg PO DAILY [facility] Last Admin: 10/27/16 09:41 Dose: 300 mg Atorvastatin Calcium (Lipitor) 10 mg PO HS [facility] Last Admin: 10/27/16 22:25 Dose: 10 mg Escitalopram Oxalate (Lexapro) 60 mg PO DAILY [facility] Last Admin: 10/27/16 09:40 Dose: 60 mg Famotidine (Pepcid) 20 mg PO DAILY@2100 [facility] Last Admin: 10/27/16 22:26 Dose: 20 mg Piperacillin Sod/Tazobactam (Sod 2.25 gm/ Sodium Chloride) 100 mls @ 100 mls/ hr IVPB Q8 [facility] Last Admin: 10/28/16 01:30 Dose: 100 mls/hr Cefazolin Sodium 1 gm/ Sodium (Chloride) 100 mls @ 100 mls/hr IVPB Q8 [facility] Last Admin: 10/28/16 01:30 Dose: 100 mls/hr Dextrose/Sodium Chloride (Dextrose 5%/0.45% Ns 1000 Ml) 1,000 mls @ 100 mls/hr IV .Q10H [facility] Stop: 10/28/16 10:16 Last Admin: 10/28/16 06:17 Dose: 100 mls/hr Lactobacillus Acidophilus (Bacid Acidophilus) 1 cap PO BID [facility] Last Admin: 10/27/16 18:07 Dose: 1 cap Latanoprost (Xalatan Opht) 1 drop OU HS [facility] Last Admin: 10/27/16 22:00 Dose: Not Given Metoclopramide HCl (Reglan) 10 mg IVP Q6 PRN PRN Reason: Nausea/Vomiting Metoprolol Succinate (Toprol Xl) 25 mg PO DAILY [facility] Last Admin: 10/27/16 09:41 Dose: 25 mg Mirtazapine (Remeron) 7.5 mg PO HS PRN PRN Reason: Sleep Last Admin: 10/26/16 23:15 Dose: 7.5 mg Morphine Sulfate (Morphine) 1 mg IVP Q4 PRN PRN Reason: Pain, moderate (4-7) Multivitamins/Minerals (Therapeutic-M Tab) 1 tab PO DAILY [facility] Last Admin: 10/27/16 09:40 Dose: 1 tab Ondansetron HCl (Zofran Inj) 4 mg IVP Q6 PRN PRN Reason: Nausea/Vomiting Last Admin: 10/26/16 21:36 Dose: 4 mg Timolol Maleate (Timoptic 0.5% Ophth Soln) 1 drop OU DAILY [facility] Last Admin: 10/27/16 09:41 Dose: 1 drop - Labs Labs: 10/28/16 06:00 10/28/16 06:00 - Constitutional Appears: Non-toxic, No Acute Distress - Head Exam Head Exam: NORMAL INSPECTION - Eye Exam Eye Exam: EOMI, Normal appearance - Respiratory Exam Respiratory Exam: NORMAL BREATHING PATTERN. absent: Respiratory Distress - Cardiovascular Exam Cardiovascular Exam: REGULAR RHYTHM, +S1, +S2 - GI/Abdominal Exam GI & Abdominal Exam: Soft, Tenderness (slight tenderness on palpation RLQ ). absent: Distended, Firm, Guarding, Rigid Additional comments: Colostomy bag in place with green colored stool noted - Neurological Exam Neurological Exam: Alert, Awake, Oriented x3 - Psychiatric Exam Psychiatric exam: Normal Affect, Normal Mood - Skin Skin Exam: Normal Color, Warm Additional comments: Incision site at mons pubis appears well healed, no erythema, no malodor, no drainage, no pain on palpation Assessment and Plan - Assessment and Plan (Free Text) Assessment: 81 yo female pt admitted for 1) abdominal pain w/ possible small bowel obstruction secondary to right parasagittal ventral hernia & 2) UTI Plan: - Pt seen and examined at bedside w/ Dr. Singer present - Chart, labs, vitals reviewed: afebrile, + leukocytosis trending down 12.8 ( down from 13.3) - Abd/pelvis CT (10/25/16): possible mechanical small-bowel obstruction secondary to right parasagittal ventral hernia. - F/u small bowel series today (r/o obstruction) - c/w NPO diet for now - c/w IV abx per ID (Dr. Irizarry) - Zofran & Reglan prn - Morphine prn for pain - plan d/w Dr. Singer in detail -Ghada Jensen, PGY-1 <Manuel Singer - Last Filed: 10/28/16 11:25> Subjective - Date & Time of Evaluation Date of Evaluation: 10/28/16 Time of Evaluation: 11:00 - Subjective Subjective: Patient was seen and examined at the bedside. Agree with resident's note above Objective - Vital Signs/Intake and Output Vital Signs (last 24 hours): Temp Pulse Resp BP Pulse Ox 98.5 F 70 20 146/79 96 10/27/16 22:00 10/28/16 10:09 10/27/16 22:00 10/28/16 10:09 10/27/16 22:00 - Medications Medications: Current Medications Albuterol/Ipratropium (Duoneb 3 Mg/0.5 Mg (3 Ml) Ud) 3 ml INH RQ6 PRN PRN Reason: Shortness of Breath Allopurinol (Zyloprim) 300 mg PO DAILY [facility] Last Admin: 10/28/16 10:13 Dose: 300 mg Atorvastatin Calcium (Lipitor) 10 mg PO HS [facility] Last Admin: 10/27/16 22:25 Dose: 10 mg Escitalopram Oxalate (Lexapro) 60 mg PO DAILY [facility] Last Admin: 10/28/16 10:08 Dose: 60 mg Famotidine (Pepcid) 20 mg PO DAILY@2100 [facility] Last Admin: 10/27/16 22:26 Dose: 20 mg Piperacillin Sod/Tazobactam (Sod 2.25 gm/ Sodium Chloride) 100 mls @ 100 mls/ hr IVPB Q8 [facility] Last Admin: 10/28/16 10:12 Dose: 100 mls/hr Cefazolin Sodium 1 gm/ Sodium (Chloride) 100 mls @ 100 mls/hr IVPB Q8 [facility] Last Admin: 10/28/16 10:07 Dose: 100 mls/hr Lactobacillus Acidophilus (Bacid Acidophilus) 1 cap PO BID [facility] Last Admin: 10/27/16 18:07 Dose: 1 cap Latanoprost (Xalatan Opht) 1 drop OU HS [facility] Last Admin: 10/27/16 22:00 Dose: Not Given Metoclopramide HCl (Reglan) 10 mg IVP Q6 PRN PRN Reason: Nausea/Vomiting Metoprolol Succinate (Toprol Xl) 25 mg PO DAILY [facility] Last Admin: 10/28/16 10:09 Dose: 25 mg Mirtazapine (Remeron) 7.5 mg PO HS PRN PRN Reason: Sleep Last Admin: 10/26/16 23:15 Dose: 7.5 mg Morphine Sulfate (Morphine) 1 mg IVP Q4 PRN PRN Reason: Pain, moderate (4-7) Multivitamins/Minerals (Therapeutic-M Tab) 1 tab PO DAILY [facility] Last Admin: 10/28/16 10:08 Dose: 1 tab Ondansetron HCl (Zofran Inj) 4 mg IVP Q6 PRN PRN Reason: Nausea/Vomiting Last Admin: 10/26/16 21:36 Dose: 4 mg Timolol Maleate (Timoptic 0.5% Ophth Soln) 1 drop OU DAILY [facility] Last Admin: 10/28/16 10:09 Dose: 1 drop - Labs Labs: 10/28/16 06:00 10/28/16 06:00
[2016-10-28] MEDS: Lactobacillus Acidophilus 500 MU Cap PO SCH ×2 (09:00→17:04)
[2016-10-28] MEDS: Multivitamin With Minerals Tab PO SCH (10:08)
[2016-10-28] MEDS: Metoprolol Succinate 25 mg XL Tab PO SCH (10:09)
--- NOTE | 2016-10-28 10:39 | PQF GENQUE ---
Dr. Beckman, In agreement with BMI :41.4?:listed in the EMR: if yes: (1) please list the BMI in the progress note (2) include any associated diagnosis OR: Disagree OR: Other explanation of clinical findin RD consult pending This form is a permanent part of the medical record Clarification of your documentation is requested to better reflect the severity of illness and intensity of treatment of your patient. Indicators present [] Specify: [] [] Specify: [] [] Specify: [] [] Specify: [] Location in the medical record that reflects the above clinical findings: [] Treatment Provided: [] PHYSICIAN'S RESPONSE Based on your medical judgment of the clinical indicators outlined above please clarify the following: [] Practitioner response [] If unable to determine, please check the box, sign and date. Present On Admission (POA) Indicator: [] Present at the time of admission [] Not present at the time of admission [] Clinically Undetermined In responding to this query, please exercise your independent professional judgment. The fact that a question is asked does not imply that any particular answer is desired or expected. Thank you for your clarification on this documentation. If you have any questions please call. * Thank you, Pippa Camp RN BSN ext. #[phone] MTDD
--- NOTE | 2016-10-28 14:00 | CP.PCM.PN ---
<Cee Montero - Last Filed: 10/28/16 14:31> Subjective - Date & Time of Evaluation Date of Evaluation: 10/28/16 Time of Evaluation: 11:00 - Subjective Subjective: Pt seen and examined at bedside, still feels nausea, vomited once this morning. feels like she wants to eat but is also nauseous. reports abdominal pain and would like some pain medication. no other complaints other rashid Objective - Vital Signs/Intake and Output Vital Signs (last 24 hours): Temp Pulse Resp BP Pulse Ox 98.5 F 70 20 146/79 96 10/27/16 22:00 10/28/16 10:09 10/27/16 22:00 10/28/16 10:09 10/27/16 22:00 - Medications Medications: Current Medications Albuterol/Ipratropium (Duoneb 3 Mg/0.5 Mg (3 Ml) Ud) 3 ml INH RQ6 PRN PRN Reason: Shortness of Breath Allopurinol (Zyloprim) 300 mg PO DAILY [facility] Last Admin: 10/28/16 10:13 Dose: 300 mg Atorvastatin Calcium (Lipitor) 10 mg PO HS [facility] Last Admin: 10/27/16 22:25 Dose: 10 mg Escitalopram Oxalate (Lexapro) 60 mg PO DAILY [facility] Last Admin: 10/28/16 10:08 Dose: 60 mg Famotidine (Pepcid) 20 mg PO DAILY@2100 [facility] Last Admin: 10/27/16 22:26 Dose: 20 mg Piperacillin Sod/Tazobactam (Sod 2.25 gm/ Sodium Chloride) 100 mls @ 100 mls/ hr IVPB Q8 [facility] Last Admin: 10/28/16 10:12 Dose: 100 mls/hr Cefazolin Sodium 1 gm/ Sodium (Chloride) 100 mls @ 100 mls/hr IVPB Q8 [facility] Last Admin: 10/28/16 10:07 Dose: 100 mls/hr Lactobacillus Acidophilus (Bacid Acidophilus) 1 cap PO BID [facility] Last Admin: 10/27/16 18:07 Dose: 1 cap Latanoprost (Xalatan Opht) 1 drop OU HS [facility] Last Admin: 10/27/16 22:00 Dose: Not Given Metoclopramide HCl (Reglan) 10 mg IVP Q6 PRN PRN Reason: Nausea/Vomiting Metoprolol Succinate (Toprol Xl) 25 mg PO DAILY [facility] Last Admin: 10/28/16 10:09 Dose: 25 mg Mirtazapine (Remeron) 7.5 mg PO HS PRN PRN Reason: Sleep Last Admin: 10/26/16 23:15 Dose: 7.5 mg Morphine Sulfate (Morphine) 1 mg IVP Q4 PRN PRN Reason: Pain, moderate (4-7) Multivitamins/Minerals (Therapeutic-M Tab) 1 tab PO DAILY [facility] Last Admin: 10/28/16 10:08 Dose: 1 tab Ondansetron HCl (Zofran Inj) 4 mg IVP Q6 PRN PRN Reason: Nausea/Vomiting Last Admin: 10/26/16 21:36 Dose: 4 mg Timolol Maleate (Timoptic 0.5% Ophth Soln) 1 drop OU DAILY [facility] Last Admin: 10/28/16 10:09 Dose: 1 drop - Labs Labs: 10/28/16 06:00 10/28/16 06:00 - Constitutional Appears: No Acute Distress - Head Exam Head Exam: NORMAL INSPECTION - ENT Exam ENT Exam: Mucous Membranes Moist - Respiratory Exam Respiratory Exam: Clear to Ausculation Bilateral, NORMAL BREATHING PATTERN - Cardiovascular Exam Cardiovascular Exam: REGULAR RHYTHM, +S1, +S2 - GI/Abdominal Exam GI & Abdominal Exam: Soft, Normal Bowel Sounds - Extremities Exam Extremities Exam: Pedal Edema. absent: Calf Tenderness - Neurological Exam Neurological Exam: Alert, Awake, Oriented x3 Assessment and Plan - Assessment and Plan (Free Text) Assessment: 81 y/o female admitted for hematuria, UTI and Ct abdomen showing mechanical obstruction due to hernia Plan: 1. hematuria Renal and bladder ultrasound -does not sure any abnormalities mostly due to UTI- ID consulted for antibiotic recommendation 2. Mechnical bowel obstruction zofran and reglan for nausea prn Surgery consulted Manage per surgery 3. CKD stage 4 avoid nephrotoxic agents monitor BUN/Cr 4. COPD, controlled -duoneb prn for wheezing, sob 5. HTN, controlled continue home meds 6. DVT prophylaxis lovenox 40mg SC 6. Diet- NPO, progress as tolerated IVF Plan: 1. hematuria Renal and bladder ultrasound -does not show any abnormalities mostly due to UTI- ID consulted for antibiotic recommendation 2. Mechnical bowel obstruction zofran and reglan for nausea prn Surgery consulted Manage per surgery 3. CKD stage 4 avoid nephrotoxic agents monitor BUN/Cr 4. COPD, controlled -duoneb prn for wheezing, sob 5. HTN, controlled continue home meds 6. DVT prophylaxis lovenox 40mg SC 6. Diet- NPO, progress as tolerated IVF <Mamadou Beckman - Last Filed: 10/29/16 11:32> Objective - Vital Signs/Intake and Output Vital Signs (last 24 hours): Temp Pulse Resp BP Pulse Ox 97.8 F 66 20 136/79 97 10/29/16 08:40 10/29/16 09:20 10/29/16 08:40 10/29/16 09:20 10/29/16 08:40 - Medications Medications: Current Medications Albuterol/Ipratropium (Duoneb 3 Mg/0.5 Mg (3 Ml) Ud) 3 ml INH RQ6 PRN PRN Reason: Shortness of Breath Allopurinol (Zyloprim) 300 mg PO DAILY [facility] Last Admin: 10/29/16 09:21 Dose: 300 mg Atorvastatin Calcium (Lipitor) 10 mg PO HS [facility] Last Admin: 10/28/16 22:27 Dose: 10 mg Escitalopram Oxalate (Lexapro) 60 mg PO DAILY [facility] Last Admin: 10/29/16 09:19 Dose: 60 mg Famotidine (Pepcid) 20 mg PO DAILY@2100 [facility] Last Admin: 10/28/16 22:27 Dose: 20 mg Cefazolin Sodium 1 gm/ Sodium (Chloride) 100 mls @ 100 mls/hr IVPB Q8 [facility] Last Admin: 10/29/16 09:17 Dose: 100 mls/hr Lactobacillus Acidophilus (Bacid Acidophilus) 1 cap PO BID [facility] Last Admin: 10/29/16 09:18 Dose: 1 cap Latanoprost (Xalatan Opht) 1 drop OU HS [facility] Last Admin: 10/28/16 22:28 Dose: 1 drop Metoclopramide HCl (Reglan) 10 mg IVP Q6 PRN PRN Reason: Nausea/Vomiting Last Admin: 10/28/16 20:53 Dose: 10 mg Metoprolol Succinate (Toprol Xl) 25 mg PO DAILY [facility] Last Admin: 10/29/16 09:20 Dose: 25 mg Mirtazapine (Remeron) 7.5 mg PO HS PRN PRN Reason: Sleep Last Admin: 10/28/16 22:27 Dose: 7.5 mg Morphine Sulfate (Morphine) 1 mg IVP Q4 PRN PRN Reason: Pain, moderate (4-7) Last Admin: 10/29/16 04:03 Dose: 1 mg Multivitamins/Minerals (Therapeutic-M Tab) 1 tab PO DAILY [facility] Last Admin: 10/29/16 09:19 Dose: 1 tab Ondansetron HCl (Zofran Inj) 4 mg IVP Q6 PRN PRN Reason: Nausea/Vomiting Last Admin: 10/29/16 04:04 Dose: 4 mg Timolol Maleate (Timoptic 0.5% Ophth Soln) 1 drop OU DAILY [facility] Last Admin: 10/29/16 09:20 Dose: 1 drop - Labs Labs: 10/29/16 06:30 10/29/16 06:30 Assessment and Plan - Assessment and Plan (Free Text) Plan: I was present during evaluation and discussed with Dr Winston cooper plans of care and management mamadou Beckman M.D.
--- NOTE | 2016-10-28 14:10 | CP.PCM.PN ---
Subjective - Date & Time of Evaluation Date of Evaluation: 10/28/16 Time of Evaluation: 07:00 - Subjective Subjective: still c/o vomiting no fever surgery/ gi on board may need NGT decompression Objective - Vital Signs/Intake and Output Vital Signs (last 24 hours): Temp Pulse Resp BP Pulse Ox 98.5 F 70 20 146/79 96 10/27/16 22:00 10/28/16 10:09 10/27/16 22:00 10/28/16 10:09 10/27/16 22:00 - Medications Medications: Current Medications Albuterol/Ipratropium (Duoneb 3 Mg/0.5 Mg (3 Ml) Ud) 3 ml INH RQ6 PRN PRN Reason: Shortness of Breath Allopurinol (Zyloprim) 300 mg PO DAILY [facility] Last Admin: 10/28/16 10:13 Dose: 300 mg Atorvastatin Calcium (Lipitor) 10 mg PO HS [facility] Last Admin: 10/27/16 22:25 Dose: 10 mg Escitalopram Oxalate (Lexapro) 60 mg PO DAILY [facility] Last Admin: 10/28/16 10:08 Dose: 60 mg Famotidine (Pepcid) 20 mg PO DAILY@2100 [facility] Last Admin: 10/27/16 22:26 Dose: 20 mg Piperacillin Sod/Tazobactam (Sod 2.25 gm/ Sodium Chloride) 100 mls @ 100 mls/ hr IVPB Q8 [facility] Last Admin: 10/28/16 10:12 Dose: 100 mls/hr Cefazolin Sodium 1 gm/ Sodium (Chloride) 100 mls @ 100 mls/hr IVPB Q8 [facility] Last Admin: 10/28/16 10:07 Dose: 100 mls/hr Lactobacillus Acidophilus (Bacid Acidophilus) 1 cap PO BID [facility] Last Admin: 10/27/16 18:07 Dose: 1 cap Latanoprost (Xalatan Opht) 1 drop OU HS [facility] Last Admin: 10/27/16 22:00 Dose: Not Given Metoclopramide HCl (Reglan) 10 mg IVP Q6 PRN PRN Reason: Nausea/Vomiting Metoprolol Succinate (Toprol Xl) 25 mg PO DAILY [facility] Last Admin: 10/28/16 10:09 Dose: 25 mg Mirtazapine (Remeron) 7.5 mg PO HS PRN PRN Reason: Sleep Last Admin: 10/26/16 23:15 Dose: 7.5 mg Morphine Sulfate (Morphine) 1 mg IVP Q4 PRN PRN Reason: Pain, moderate (4-7) Multivitamins/Minerals (Therapeutic-M Tab) 1 tab PO DAILY [facility] Last Admin: 10/28/16 10:08 Dose: 1 tab Ondansetron HCl (Zofran Inj) 4 mg IVP Q6 PRN PRN Reason: Nausea/Vomiting Last Admin: 10/26/16 21:36 Dose: 4 mg Timolol Maleate (Timoptic 0.5% Ophth Soln) 1 drop OU DAILY [facility] Last Admin: 10/28/16 10:09 Dose: 1 drop - Labs Labs: 10/28/16 06:00 10/28/16 06:00 - Constitutional Appears: Non-toxic, Chronically Ill - Head Exam Head Exam: NORMOCEPHALIC - Eye Exam Eye Exam: absent: Scleral icterus - ENT Exam ENT Exam: Mucous Membranes Dry - Neck Exam Neck Exam: absent: Lymphadenopathy - Respiratory Exam Respiratory Exam: Decreased Breath Sounds - Cardiovascular Exam Cardiovascular Exam: REGULAR RHYTHM - GI/Abdominal Exam GI & Abdominal Exam: Distended Assessment and Plan (1) Abdominal pain Status: Acute (2) Abscess, suprapubic Status: Acute (3) Bowel obstruction Status: Acute
[2016-10-28 15:19] LABS: RBC URINE 4927 /hpf (0-3); URINE BILIRUBIN NEGATIVE (NEGATIVE); URINE BLOOD LARGE (NEGATIVE); URINE COLOR RED (YELLOW); URINE GLUCOSE (UA) 50 mg/dL (Normal); URINE KETONE NEGATIVE (NEGATIVE); URINE LEUKOCYTE ESTERASE SMALL Leu/uL (Negative); URINE PROTEIN 100 mg/dL (NEGATIVE); URINE UROBILINOGEN 0.2-1.0 mg/dL (0.2-1.0); WBC CLUMPS MANY /hpf; WBC URINE 459 /hpf (0-5)
--- NOTE | 2016-10-28 15:54 | RAD ---
PROCEDURE: Small bowel series HISTORY: r/o SBO COMPARISON: CT abdomen/pelvis 10/25/2016 TECHNIQUE: Two cups of low-density barium suspension were administered orally. Sequential overhead films were obtained during transit of the barium. FINDINGS: There is dilatation of multiple loops of small bowel in the mid and left side of the abdomen. On the 7 hour film, there is a small amount of contrast material seen in what is likely the right colon. This is more clearly demonstrated on the 9 hour 15 minutes film. On the 17 hour film, nondistended loops of ileum are demonstrated in the right side of the abdomen. Distended loops of barium filled small bowel are still demonstrated. There is barium seen within the right colon. Nondistended loops of ileum are seen in the right lower quadrant of the abdomen. The findings are consistent with partial mechanical small bowel obstruction. The site of obstruction may correspond to the ventral hernia seen on CT examination of 10/25/2016 but this has not been clearly demonstrated on this examination. . IMPRESSION: Findings consistent with partial mechanical small bowel obstruction. Precise point of obstruction not clearly demonstrated.
[2016-10-28] MEDS: Latanoprost 0.005% Opht SOUTION OU SCH (22:28)
[2016-10-29] MEDS: ceFAZolin 1 GM in Sodium Chloride 0.9% 100 ML IVPB SCH ×3 (01:04→16:31)
[2016-10-29 08:18] LABS: ALB/GLOB RATIO 0.9 (1.0-2.1); BILIRUBIN,TOTAL 0.2 mg/dl (0.2-1.3); CALCIUM 9.4 mg/dL (8.4-10.2); POTASSIUM 3.7 MMOL/L (3.6-5.0); TOTAL PROTEIN 6.8 G/DL (6.3-8.2)
[2016-10-29 08:26] LABS: BASO % 0.4 % (0.0-2.0); EOS # 0.1 K/uL (0.0-0.7); EOS % 0.9 % (0.0-4.0); HEMATOCRIT 35.8 % (34.0-47.0); LYMPH # 1.3 K/uL (1.0-4.3); LYMPH % 11.3 % (20.0-40.0); MEAN CELL VOLUME 95.2 fl (81.0-99.0); MEAN CORPUSCULAR HEMOGLOBIN 30.4 pg (27.0-31.0); MEAN PLATELET VOLUME 8.7 fl (7.2-11.7); NEUT # 9.4 K/uL (1.8-7.0); NEUT % 79.4 % (50.0-75.0); RED CELL DISTRIBUTION WIDTH 15.5 % (11.5-14.5); WHITE BLOOD COUNT 11.9 K/uL (4.8-10.8)
--- NOTE | 2016-10-29 08:40 | CP.PCM.PN ---
<Evan Figueroa - Last Filed: 10/29/16 08:37> Subjective - Date & Time of Evaluation Date of Evaluation: 10/29/16 Time of Evaluation: 07:30 - Subjective Subjective: Gen Surg: Dr. Singer Pt S&E this AM. As per nursing, patient had two bouts of scant emesis. Patient had 250ccs output into ostomy bag. Pt states she feels much better compared to prior days. Today patient denies parastomal tenderness. NAEO. Objective - Vital Signs/Intake and Output Vital Signs (last 24 hours): Temp Pulse Resp BP Pulse Ox 99 F 66 20 146/81 97 10/28/16 22:04 10/28/16 22:04 10/28/16 22:04 10/28/16 22:04 10/28/16 22:04 - Medications Medications: Current Medications Albuterol/Ipratropium (Duoneb 3 Mg/0.5 Mg (3 Ml) Ud) 3 ml INH RQ6 PRN PRN Reason: Shortness of Breath Allopurinol (Zyloprim) 300 mg PO DAILY [facility] Last Admin: 10/28/16 10:13 Dose: 300 mg Atorvastatin Calcium (Lipitor) 10 mg PO HS [facility] Last Admin: 10/28/16 22:27 Dose: 10 mg Escitalopram Oxalate (Lexapro) 60 mg PO DAILY [facility] Last Admin: 10/28/16 10:08 Dose: 60 mg Famotidine (Pepcid) 20 mg PO DAILY@2100 [facility] Last Admin: 10/28/16 22:27 Dose: 20 mg Cefazolin Sodium 1 gm/ Sodium (Chloride) 100 mls @ 100 mls/hr IVPB Q8 [facility] Last Admin: 10/29/16 01:04 Dose: 100 mls/hr Lactobacillus Acidophilus (Bacid Acidophilus) 1 cap PO BID [facility] Last Admin: 10/28/16 17:04 Dose: 1 cap Latanoprost (Xalatan Opht) 1 drop OU HS [facility] Last Admin: 10/28/16 22:28 Dose: 1 drop Metoclopramide HCl (Reglan) 10 mg IVP Q6 PRN PRN Reason: Nausea/Vomiting Last Admin: 10/28/16 20:53 Dose: 10 mg Metoprolol Succinate (Toprol Xl) 25 mg PO DAILY [facility] Last Admin: 10/28/16 10:09 Dose: 25 mg Mirtazapine (Remeron) 7.5 mg PO HS PRN PRN Reason: Sleep Last Admin: 10/28/16 22:27 Dose: 7.5 mg Morphine Sulfate (Morphine) 1 mg IVP Q4 PRN PRN Reason: Pain, moderate (4-7) Last Admin: 10/29/16 04:03 Dose: 1 mg Multivitamins/Minerals (Therapeutic-M Tab) 1 tab PO DAILY [facility] Last Admin: 10/28/16 10:08 Dose: 1 tab Ondansetron HCl (Zofran Inj) 4 mg IVP Q6 PRN PRN Reason: Nausea/Vomiting Last Admin: 10/29/16 04:04 Dose: 4 mg Timolol Maleate (Timoptic 0.5% Ophth Soln) 1 drop OU DAILY [facility] Last Admin: 10/28/16 10:09 Dose: 1 drop - Labs Labs: 10/29/16 06:30 10/29/16 06:30 - Constitutional Appears: No Acute Distress - Head Exam Head Exam: NORMOCEPHALIC - Eye Exam Eye Exam: Normal appearance - ENT Exam ENT Exam: Mucous Membranes Moist - Respiratory Exam Respiratory Exam: NORMAL BREATHING PATTERN - Cardiovascular Exam Cardiovascular Exam: +S1, +S2 - GI/Abdominal Exam GI & Abdominal Exam: Soft. absent: Firm, Guarding, Rigid, Tenderness - Neurological Exam Neurological Exam: Alert, Awake, Oriented x3 - Psychiatric Exam Psychiatric exam: Normal Mood - Skin Skin Exam: Normal Color, Warm Assessment and Plan - Assessment and Plan (Free Text) Assessment: 81F w/ possible SBO 2/2 right parasagittal ventral hernia - Clear liquid diet - c/w IV abx per ID - Zofran & Reglan prn - Morphine prn for pain -Mechanical obstruction unlikely as patient continues to have output into ostomy bag, and abdominal pain has improved. - D/w Dr. Singer <Manuel Singer - Last Filed: 10/29/16 15:22> Subjective - Date & Time of Evaluation Date of Evaluation: 10/29/16 Time of Evaluation: 14:15 - Subjective Subjective: Patient was seen and examined at the bedside. Agree with resident's note above Objective - Vital Signs/Intake and Output Vital Signs (last 24 hours): Temp Pulse Resp BP Pulse Ox 97.8 F 66 20 136/79 97 10/29/16 08:40 10/29/16 09:20 10/29/16 08:40 10/29/16 09:20 10/29/16 08:40 - Medications Medications: Current Medications Albuterol/Ipratropium (Duoneb 3 Mg/0.5 Mg (3 Ml) Ud) 3 ml INH RQ6 PRN PRN Reason: Shortness of Breath Allopurinol (Zyloprim) 300 mg PO DAILY [facility] Last Admin: 10/29/16 09:21 Dose: 300 mg Atorvastatin Calcium (Lipitor) 10 mg PO HS [facility] Last Admin: 10/28/16 22:27 Dose: 10 mg Escitalopram Oxalate (Lexapro) 60 mg PO DAILY [facility] Last Admin: 10/29/16 09:19 Dose: 60 mg Famotidine (Pepcid) 20 mg PO DAILY@2100 [facility] Last Admin: 10/28/16 22:27 Dose: 20 mg Cefazolin Sodium 1 gm/ Sodium (Chloride) 100 mls @ 100 mls/hr IVPB Q8 [facility] Last Admin: 10/29/16 09:17 Dose: 100 mls/hr Lactobacillus Acidophilus (Bacid Acidophilus) 1 cap PO BID [facility] Last Admin: 10/29/16 09:18 Dose: 1 cap Latanoprost (Xalatan Opht) 1 drop OU HS [facility] Last Admin: 10/28/16 22:28 Dose: 1 drop Metoclopramide HCl (Reglan) 10 mg IVP Q6 PRN PRN Reason: Nausea/Vomiting Last Admin: 10/28/16 20:53 Dose: 10 mg Metoprolol Succinate (Toprol Xl) 25 mg PO DAILY [facility] Last Admin: 10/29/16 09:20 Dose: 25 mg Mirtazapine (Remeron) 7.5 mg PO HS PRN PRN Reason: Sleep Last Admin: 10/28/16 22:27 Dose: 7.5 mg Morphine Sulfate (Morphine) 1 mg IVP Q4 PRN PRN Reason: Pain, moderate (4-7) Last Admin: 10/29/16 04:03 Dose: 1 mg Multivitamins/Minerals (Therapeutic-M Tab) 1 tab PO DAILY [facility] Last Admin: 10/29/16 09:19 Dose: 1 tab Ondansetron HCl (Zofran Inj) 4 mg IVP Q6 PRN PRN Reason: Nausea/Vomiting Last Admin: 10/29/16 04:04 Dose: 4 mg Timolol Maleate (Timoptic [facility]) 1 drop OU DAILY [facility] Last Admin: 10/29/16 09:20 Dose: 1 drop - Labs Labs: 10/29/16 06:30 10/29/16 06:30 Assessment and Plan - Assessment and Plan (Free Text) Plan: - Start full liquid diet - Will follow
[2016-10-29] MEDS: Lactobacillus Acidophilus 500 MU Cap PO SCH ×2 (09:18→16:35)
[2016-10-29] MEDS: Multivitamin With Minerals Tab PO SCH (09:19)
[2016-10-29] MEDS: Metoprolol Succinate 25 mg XL Tab PO SCH (09:20)
--- NOTE | 2016-10-29 11:30 | CP.PCM.PN ---
Subjective - Date & Time of Evaluation Date of Evaluation: 10/29/16 Time of Evaluation: 11:28 - Subjective Subjective: patient remains stable Still with nausea and slight emesis. Has no fever small bowel series showed partial small intestinal obstruction\ has hematuria today urine c and S was normal. Objective - Vital Signs/Intake and Output Vital Signs (last 24 hours): Temp Pulse Resp BP Pulse Ox 97.8 F 66 20 136/79 97 10/29/16 08:40 10/29/16 09:20 10/29/16 08:40 10/29/16 09:20 10/29/16 08:40 - Medications Medications: Current Medications Albuterol/Ipratropium (Duoneb 3 Mg/0.5 Mg (3 Ml) Ud) 3 ml INH RQ6 PRN PRN Reason: Shortness of Breath Allopurinol (Zyloprim) 300 mg PO DAILY [facility] Last Admin: 10/29/16 09:21 Dose: 300 mg Atorvastatin Calcium (Lipitor) 10 mg PO HS [facility] Last Admin: 10/28/16 22:27 Dose: 10 mg Escitalopram Oxalate (Lexapro) 60 mg PO DAILY [facility] Last Admin: 10/29/16 09:19 Dose: 60 mg Famotidine (Pepcid) 20 mg PO DAILY@2100 [facility] Last Admin: 10/28/16 22:27 Dose: 20 mg Cefazolin Sodium 1 gm/ Sodium (Chloride) 100 mls @ 100 mls/hr IVPB Q8 [facility] Last Admin: 10/29/16 09:17 Dose: 100 mls/hr Lactobacillus Acidophilus (Bacid Acidophilus) 1 cap PO BID [facility] Last Admin: 10/29/16 09:18 Dose: 1 cap Latanoprost (Xalatan Opht) 1 drop OU HS [facility] Last Admin: 10/28/16 22:28 Dose: 1 drop Metoclopramide HCl (Reglan) 10 mg IVP Q6 PRN PRN Reason: Nausea/Vomiting Last Admin: 10/28/16 20:53 Dose: 10 mg Metoprolol Succinate (Toprol Xl) 25 mg PO DAILY [facility] Last Admin: 10/29/16 09:20 Dose: 25 mg Mirtazapine (Remeron) 7.5 mg PO HS PRN PRN Reason: Sleep Last Admin: 10/28/16 22:27 Dose: 7.5 mg Morphine Sulfate (Morphine) 1 mg IVP Q4 PRN PRN Reason: Pain, moderate (4-7) Last Admin: 10/29/16 04:03 Dose: 1 mg Multivitamins/Minerals (Therapeutic-M Tab) 1 tab PO DAILY [facility] Last Admin: 10/29/16 09:19 Dose: 1 tab Ondansetron HCl (Zofran Inj) 4 mg IVP Q6 PRN PRN Reason: Nausea/Vomiting Last Admin: 10/29/16 04:04 Dose: 4 mg Timolol Maleate (Timoptic 0.5% Ophth Soln) 1 drop OU DAILY [facility] Last Admin: 10/29/16 09:20 Dose: 1 drop - Labs Labs: 10/29/16 06:30 10/29/16 06:30 - Head Exam Head Exam: NORMAL INSPECTION - Eye Exam Eye Exam: Normal appearance - ENT Exam ENT Exam: Mucous Membranes Moist - Respiratory Exam Respiratory Exam: Clear to Ausculation Bilateral - Cardiovascular Exam Cardiovascular Exam: REGULAR RHYTHM - GI/Abdominal Exam GI & Abdominal Exam: Soft, Normal Bowel Sounds Assessment and Plan - Assessment and Plan (Free Text) Plan: cont meds clear liquids cont zofran iv antibiotics
[2016-10-29] MEDS: Latanoprost 0.005% Opht SOUTION OU SCH (23:25)
[2016-10-30] MEDS: ceFAZolin 1 GM in Sodium Chloride 0.9% 100 ML IVPB SCH ×3 (01:04→17:10)
[2016-10-30] MEDS ORDERED: Iohexol 300 100 ML IJ ONE (08:21)
[2016-10-30] MEDS ORDERED: Sodium Chloride 0.9% 50 ML IV ONE (08:21)
[2016-10-30 08:27] LABS: ALB/GLOB RATIO 0.9 (1.0-2.1); BILIRUBIN,TOTAL 0.4 mg/dl (0.2-1.3); CALCIUM 9.5 mg/dL (8.4-10.2); POTASSIUM 3.7 MMOL/L (3.6-5.0); TOTAL PROTEIN 6.3 G/DL (6.3-8.2)
[2016-10-30 08:32] LABS: BASO # 0.1 K/uL (0.0-0.2); BASO % 0.6 % (0.0-2.0); EOS # 0.4 K/uL (0.0-0.7); EOS % 3.2 % (0.0-4.0); HEMATOCRIT 34.6 % (34.0-47.0); LYMPH # 1.6 K/uL (1.0-4.3); MEAN CELL VOLUME 95.6 fl (81.0-99.0); MEAN CORPUSCULAR HGB CONC 32.4 g/dL (33.0-37.0); MEAN PLATELET VOLUME 8.9 fl (7.2-11.7); MONO # 1.3 K/uL (0.0-0.8); MONO % 11.9 % (0.0-10.0); NEUT # 7.6 K/uL (1.8-7.0); NEUT % 69.3 % (50.0-75.0); NRBC % 0.1 % (0.0-0.0); RED CELL DISTRIBUTION WIDTH 15.5 % (11.5-14.5)
--- NOTE | 2016-10-30 09:54 | CP.PCM.PN ---
<Masiha Rachel - Last Filed: 10/30/16 09:52> Subjective - Date & Time of Evaluation Date of Evaluation: 10/30/16 Time of Evaluation: 09:52 - Subjective Subjective: General Surgery - Dr. Singer Pt S&E. ELA. Pt denies any abdominal pain. She is tolerating full liquid diet but felt slightly nauseous. She states the Reglan helps. No vomiting, Fevers or chills. Objective - Vital Signs/Intake and Output Vital Signs (last 24 hours): Temp Pulse Resp BP Pulse Ox 97.8 F 65 20 116/59 L 97 10/30/16 08:44 10/30/16 08:44 10/30/16 08:44 10/30/16 08:44 10/30/16 08:44 - Medications Medications: Current Medications Albuterol/Ipratropium (Duoneb 3 Mg/0.5 Mg (3 Ml) Ud) 3 ml INH RQ6 PRN PRN Reason: Shortness of Breath Allopurinol (Zyloprim) 300 mg PO DAILY [facility] Last Admin: 10/29/16 09:21 Dose: 300 mg Atorvastatin Calcium (Lipitor) 10 mg PO HS [facility] Last Admin: 10/29/16 23:21 Dose: 10 mg Escitalopram Oxalate (Lexapro) 60 mg PO DAILY [facility] Last Admin: 10/29/16 09:19 Dose: 60 mg Famotidine (Pepcid) 20 mg PO DAILY@2100 [facility] Last Admin: 10/29/16 23:22 Dose: 20 mg Cefazolin Sodium 1 gm/ Sodium (Chloride) 100 mls @ 100 mls/hr IVPB Q8 [facility] Last Admin: 10/30/16 01:04 Dose: 100 mls/hr Lactobacillus Acidophilus (Bacid Acidophilus) 1 cap PO BID [facility] Last Admin: 10/29/16 16:35 Dose: 1 cap Latanoprost (Xalatan Opht) 1 drop OU HS [facility] Last Admin: 10/29/16 23:25 Dose: 1 drop Metoclopramide HCl (Reglan) 10 mg IVP Q6 PRN PRN Reason: Nausea/Vomiting Last Admin: 10/30/16 09:10 Dose: 10 mg Metoprolol Succinate (Toprol Xl) 25 mg PO DAILY [facility] Last Admin: 10/29/16 09:20 Dose: 25 mg Mirtazapine (Remeron) 7.5 mg PO HS PRN PRN Reason: Sleep Last Admin: 10/29/16 23:22 Dose: 7.5 mg Morphine Sulfate (Morphine) 1 mg IVP Q4 PRN PRN Reason: Pain, moderate (4-7) Last Admin: 10/29/16 19:10 Dose: 1 mg Multivitamins/Minerals (Therapeutic-M Tab) 1 tab PO DAILY [facility] Last Admin: 10/29/16 09:19 Dose: 1 tab Ondansetron HCl (Zofran Inj) 4 mg IVP Q6 PRN PRN Reason: Nausea/Vomiting Last Admin: 10/29/16 18:06 Dose: 4 mg Timolol Maleate (Timoptic 0.5% Ophth Soln) 1 drop OU DAILY [facility] Last Admin: 10/29/16 09:20 Dose: 1 drop - Labs Labs: 10/30/16 08:10 10/30/16 08:10 - Constitutional Appears: No Acute Distress - Head Exam Head Exam: ATRAUMATIC, NORMOCEPHALIC - Respiratory Exam Respiratory Exam: NORMAL BREATHING PATTERN. absent: Respiratory Distress - GI/Abdominal Exam GI & Abdominal Exam: Soft. absent: Distended, Guarding, Tenderness Additional comments: colostomy in RLQ with brown formed stool output - Neurological Exam Neurological Exam: Alert, Oriented x3 - Psychiatric Exam Psychiatric exam: Normal Affect, Normal Mood - Skin Skin Exam: Dry, Intact Assessment and Plan - Assessment and Plan (Free Text) Assessment: 81F w/ R parasagittal ventral hernia - Full liquid diet - Reglan prn - Ostomy functioning well - No signs of obstruction at this time - D/w Dr. Lucrecia Rachel PGY2 <Manuel Singer - Last Filed: 10/30/16 15:34> Subjective - Date & Time of Evaluation Date of Evaluation: 10/30/16 Time of Evaluation: 15:10 - Subjective Subjective: Patient was seen and examined at the bedside. Agree with resident's note above. Objective - Vital Signs/Intake and Output Vital Signs (last 24 hours): Temp Pulse Resp BP Pulse Ox 97.8 F 65 20 115/69 97 10/30/16 08:44 10/30/16 11:33 10/30/16 08:44 10/30/16 11:33 10/30/16 08:44 - Medications Medications: Current Medications Albuterol/Ipratropium (Duoneb 3 Mg/0.5 Mg (3 Ml) Ud) 3 ml INH RQ6 PRN PRN Reason: Shortness of Breath Allopurinol (Zyloprim) 300 mg PO DAILY [facility] Last Admin: 10/30/16 11:34 Dose: 300 mg Atorvastatin Calcium (Lipitor) 10 mg PO HS [facility] Last Admin: 10/29/16 23:21 Dose: 10 mg Escitalopram Oxalate (Lexapro) 60 mg PO DAILY [facility] Last Admin: 10/30/16 11:32 Dose: 60 mg Famotidine (Pepcid) 20 mg PO DAILY@2100 [facility] Last Admin: 10/29/16 23:22 Dose: 20 mg Cefazolin Sodium 1 gm/ Sodium (Chloride) 100 mls @ 100 mls/hr IVPB Q8 [facility] Last Admin: 10/30/16 11:31 Dose: 100 mls/hr Lactobacillus Acidophilus (Bacid Acidophilus) 1 cap PO BID [facility] Last Admin: 10/30/16 11:36 Dose: 1 cap Latanoprost (Xalatan Opht) 1 drop OU HS [facility] Last Admin: 10/29/16 23:25 Dose: 1 drop Metoclopramide HCl (Reglan) 10 mg IVP Q6 PRN PRN Reason: Nausea/Vomiting Last Admin: 10/30/16 09:10 Dose: 10 mg Metoprolol Succinate (Toprol Xl) 25 mg PO DAILY [facility] Last Admin: 10/30/16 11:33 Dose: 25 mg Mirtazapine (Remeron) 7.5 mg PO HS PRN PRN Reason: Sleep Last Admin: 10/29/16 23:22 Dose: 7.5 mg Morphine Sulfate (Morphine) 1 mg IVP Q4 PRN PRN Reason: Pain, moderate (4-7) Last Admin: 10/29/16 19:10 Dose: 1 mg Multivitamins/Minerals (Therapeutic-M Tab) 1 tab PO DAILY [facility] Last Admin: 10/30/16 11:33 Dose: 1 tab Ondansetron HCl (Zofran Inj) 4 mg IVP Q6 PRN PRN Reason: Nausea/Vomiting Last Admin: 10/29/16 18:06 Dose: 4 mg Timolol Maleate (Timoptic 0.5% Ophth Soln) 1 drop OU DAILY [facility] Last Admin: 10/30/16 11:33 Dose: 1 drop - Labs Labs: 10/30/16 08:10 10/30/16 08:10 Assessment and Plan - Assessment and Plan (Free Text) Plan: - Start low residue diet - Monitor ostomy output - No general surgery intervention at prrsent time - Continue antibiotics as per ID - Continue care as per Medical team
[2016-10-30] MEDS: Metoprolol Succinate 25 mg XL Tab PO SCH (11:33)
[2016-10-30] MEDS: Multivitamin With Minerals Tab PO SCH (11:33)
[2016-10-30] MEDS: Lactobacillus Acidophilus 500 MU Cap PO SCH ×2 (11:36→17:14)
--- NOTE | 2016-10-30 12:59 | CP.PCM.PN ---
Subjective - Date & Time of Evaluation Date of Evaluation: 10/30/16 Time of Evaluation: 07:00 - Subjective Subjective: Pt denies any abdominal pain. She is tolerating full liquid diet but felt slightly nauseous. Objective - Vital Signs/Intake and Output Vital Signs (last 24 hours): Temp Pulse Resp BP Pulse Ox 97.8 F 65 20 115/69 97 10/30/16 08:44 10/30/16 11:33 10/30/16 08:44 10/30/16 11:33 10/30/16 08:44 - Medications Medications: Current Medications Albuterol/Ipratropium (Duoneb 3 Mg/0.5 Mg (3 Ml) Ud) 3 ml INH RQ6 PRN PRN Reason: Shortness of Breath Allopurinol (Zyloprim) 300 mg PO DAILY [facility] Last Admin: 10/30/16 11:34 Dose: 300 mg Atorvastatin Calcium (Lipitor) 10 mg PO HS [facility] Last Admin: 10/29/16 23:21 Dose: 10 mg Escitalopram Oxalate (Lexapro) 60 mg PO DAILY [facility] Last Admin: 10/30/16 11:32 Dose: 60 mg Famotidine (Pepcid) 20 mg PO DAILY@2100 [facility] Last Admin: 10/29/16 23:22 Dose: 20 mg Cefazolin Sodium 1 gm/ Sodium (Chloride) 100 mls @ 100 mls/hr IVPB Q8 [facility] Last Admin: 10/30/16 11:31 Dose: 100 mls/hr Lactobacillus Acidophilus (Bacid Acidophilus) 1 cap PO BID [facility] Last Admin: 10/30/16 11:36 Dose: 1 cap Latanoprost (Xalatan Opht) 1 drop OU HS [facility] Last Admin: 10/29/16 23:25 Dose: 1 drop Metoclopramide HCl (Reglan) 10 mg IVP Q6 PRN PRN Reason: Nausea/Vomiting Last Admin: 10/30/16 09:10 Dose: 10 mg Metoprolol Succinate (Toprol Xl) 25 mg PO DAILY [facility] Last Admin: 10/30/16 11:33 Dose: 25 mg Mirtazapine (Remeron) 7.5 mg PO HS PRN PRN Reason: Sleep Last Admin: 10/29/16 23:22 Dose: 7.5 mg Morphine Sulfate (Morphine) 1 mg IVP Q4 PRN PRN Reason: Pain, moderate (4-7) Last Admin: 10/29/16 19:10 Dose: 1 mg Multivitamins/Minerals (Therapeutic-M Tab) 1 tab PO DAILY [facility] Last Admin: 10/30/16 11:33 Dose: 1 tab Ondansetron HCl (Zofran Inj) 4 mg IVP Q6 PRN PRN Reason: Nausea/Vomiting Last Admin: 10/29/16 18:06 Dose: 4 mg Timolol Maleate (Timoptic 0.5% Ophth Soln) 1 drop OU DAILY [facility] Last Admin: 10/30/16 11:33 Dose: 1 drop - Labs Labs: 10/30/16 08:10 10/30/16 08:10 - Constitutional Appears: Non-toxic, Chronically Ill - Head Exam Head Exam: NORMOCEPHALIC - Eye Exam Eye Exam: PERRL. absent: Scleral icterus - ENT Exam ENT Exam: Mucous Membranes Dry - Neck Exam Neck Exam: absent: Lymphadenopathy - Respiratory Exam Respiratory Exam: Decreased Breath Sounds, Clear to Ausculation Bilateral - Cardiovascular Exam Cardiovascular Exam: REGULAR RHYTHM, +S1, +S2 - GI/Abdominal Exam GI & Abdominal Exam: Distended, Soft. absent: Tenderness - Rectal Exam Rectal Exam: Deferred Assessment and Plan (1) Abdominal pain Status: Acute (2) Abscess, suprapubic Status: Acute (3) Bowel obstruction Status: Acute
--- NOTE | 2016-10-30 17:52 | CP.PCM.PN ---
Subjective - Date & Time of Evaluation Date of Evaluation: 10/30/16 Time of Evaluation: 17:49 - Subjective Subjective: Patient is doing a lot better. Able to tolerate soft diet. Has no nausea or vomiting. Afebrile. Objective - Vital Signs/Intake and Output Vital Signs (last 24 hours): Temp Pulse Resp BP Pulse Ox 97.8 F 65 20 115/69 97 10/30/16 08:44 10/30/16 11:33 10/30/16 08:44 10/30/16 11:33 10/30/16 08:44 - Medications Medications: Current Medications Albuterol/Ipratropium (Duoneb 3 Mg/0.5 Mg (3 Ml) Ud) 3 ml INH RQ6 PRN PRN Reason: Shortness of Breath Allopurinol (Zyloprim) 300 mg PO DAILY [facility] Last Admin: 10/30/16 11:34 Dose: 300 mg Atorvastatin Calcium (Lipitor) 10 mg PO HS [facility] Last Admin: 10/29/16 23:21 Dose: 10 mg Escitalopram Oxalate (Lexapro) 60 mg PO DAILY [facility] Last Admin: 10/30/16 11:32 Dose: 60 mg Famotidine (Pepcid) 20 mg PO DAILY@2100 [facility] Last Admin: 10/29/16 23:22 Dose: 20 mg Cefazolin Sodium 1 gm/ Sodium (Chloride) 100 mls @ 100 mls/hr IVPB Q8 [facility] Last Admin: 10/30/16 17:10 Dose: 100 mls/hr Lactobacillus Acidophilus (Bacid Acidophilus) 1 cap PO BID [facility] Last Admin: 10/30/16 17:14 Dose: 1 cap Latanoprost (Xalatan Opht) 1 drop OU HS [facility] Last Admin: 10/29/16 23:25 Dose: 1 drop Metoclopramide HCl (Reglan) 10 mg IVP Q6 PRN PRN Reason: Nausea/Vomiting Last Admin: 10/30/16 09:10 Dose: 10 mg Metoprolol Succinate (Toprol Xl) 25 mg PO DAILY [facility] Last Admin: 10/30/16 11:33 Dose: 25 mg Mirtazapine (Remeron) 7.5 mg PO HS PRN PRN Reason: Sleep Last Admin: 10/29/16 23:22 Dose: 7.5 mg Morphine Sulfate (Morphine) 1 mg IVP Q4 PRN PRN Reason: Pain, moderate (4-7) Last Admin: 10/29/16 19:10 Dose: 1 mg Multivitamins/Minerals (Therapeutic-M Tab) 1 tab PO DAILY [facility] Last Admin: 10/30/16 11:33 Dose: 1 tab Ondansetron HCl (Zofran Inj) 4 mg IVP Q6 PRN PRN Reason: Nausea/Vomiting Last Admin: 10/29/16 18:06 Dose: 4 mg Timolol Maleate (Timoptic 0.5% Ophth Soln) 1 drop OU DAILY [facility] Last Admin: 10/30/16 11:33 Dose: 1 drop - Labs Labs: 10/30/16 08:10 10/30/16 08:10 - Head Exam Head Exam: NORMAL INSPECTION - Eye Exam Eye Exam: Normal appearance - ENT Exam ENT Exam: Mucous Membranes Moist - Respiratory Exam Respiratory Exam: Clear to Ausculation Bilateral - Cardiovascular Exam Cardiovascular Exam: REGULAR RHYTHM - GI/Abdominal Exam GI & Abdominal Exam: Normal Bowel Sounds - Neurological Exam Neurological Exam: Awake, Oriented x3 Assessment and Plan - Assessment and Plan (Free Text) Plan: Dx Partial intestinal obstruction resolved UTI Hematuria Plan cont meds cont antibiotics cont iv fluids PT eval in am.
[2016-10-30] MEDS: Latanoprost 0.005% Opht SOUTION OU SCH (22:30)
[2016-10-31] MEDS: ceFAZolin 1 GM in Sodium Chloride 0.9% 100 ML IVPB SCH ×3 (00:19→16:38)
[2016-10-31 07:02] LABS: BASO # 0.1 K/uL (0.0-0.2); BASO % 0.4 % (0.0-2.0); EOS # 0.3 K/uL (0.0-0.7); EOS % 2.7 % (0.0-4.0); HEMATOCRIT 35.9 % (34.0-47.0); LYMPH # 1.7 K/uL (1.0-4.3); LYMPH % 13.9 % (20.0-40.0); MEAN CELL VOLUME 95.4 fl (81.0-99.0); MEAN CORPUSCULAR HEMOGLOBIN 30.9 pg (27.0-31.0); MEAN CORPUSCULAR HGB CONC 32.4 g/dL (33.0-37.0); MONO # 1.5 K/uL (0.0-0.8); MONO % 12.7 % (0.0-10.0); NEUT # 8.4 K/uL (1.8-7.0); NEUT % 70.3 % (50.0-75.0); RED CELL DISTRIBUTION WIDTH 15.5 % (11.5-14.5); WHITE BLOOD COUNT 11.9 K/uL (4.8-10.8)
[2016-10-31 07:22] LABS: ALB/GLOB RATIO 0.9 (1.0-2.1); BILIRUBIN,TOTAL 0.6 mg/dl (0.2-1.3); POTASSIUM 3.9 MMOL/L (3.6-5.0)
--- NOTE | 2016-10-31 08:48 | CP.PCM.PN ---
Addendum entered and electronically signed by Evan Figueroa DO 10/31/16 11:02: No further surgical intervention need, will sign off Please re-consult as needed Original Note: <Evan Figueroa - Last Filed: 10/31/16 08:51> Subjective - Date & Time of Evaluation Date of Evaluation: 10/31/16 Time of Evaluation: 07:10 - Subjective Subjective: Gen Surg: Dr. Singer Patient seen and examined this AM. NAEO. Scant vomit. 700cc/24hrs into ostomy bag. Denies abd pain. Review of vitals is normal. Objective - Vital Signs/Intake and Output Vital Signs (last 24 hours): Temp Pulse Resp BP Pulse Ox 97.3 F L 60 20 112/70 99 10/31/16 08:44 10/31/16 08:44 10/31/16 08:44 10/31/16 08:44 10/31/16 08:44 Intake and Output: 10/31/16 10/31/16 06:59 18:59 Intake Total 750 Output Total 700 Balance 50 - Medications Medications: Current Medications Albuterol/Ipratropium (Duoneb 3 Mg/0.5 Mg (3 Ml) Ud) 3 ml INH RQ6 PRN PRN Reason: Shortness of Breath Allopurinol (Zyloprim) 300 mg PO DAILY [facility] Last Admin: 10/30/16 11:34 Dose: 300 mg Atorvastatin Calcium (Lipitor) 10 mg PO HS [facility] Last Admin: 10/30/16 21:52 Dose: 10 mg Escitalopram Oxalate (Lexapro) 60 mg PO DAILY [facility] Last Admin: 10/30/16 11:32 Dose: 60 mg Famotidine (Pepcid) 20 mg PO DAILY@2100 [facility] Last Admin: 10/30/16 21:52 Dose: 20 mg Cefazolin Sodium 1 gm/ Sodium (Chloride) 100 mls @ 100 mls/hr IVPB Q8 [facility] Last Admin: 10/31/16 00:19 Dose: 100 mls/hr Lactobacillus Acidophilus (Bacid Acidophilus) 1 cap PO BID [facility] Last Admin: 10/30/16 17:14 Dose: 1 cap Latanoprost (Xalatan Opht) 1 drop OU HS [facility] Last Admin: 10/30/16 22:30 Dose: 1 drop Metoclopramide HCl (Reglan) 10 mg IVP Q6 PRN PRN Reason: Nausea/Vomiting Last Admin: 10/30/16 09:10 Dose: 10 mg Metoprolol Succinate (Toprol Xl) 25 mg PO DAILY [facility] Last Admin: 10/30/16 11:33 Dose: 25 mg Mirtazapine (Remeron) 7.5 mg PO HS PRN PRN Reason: Sleep Last Admin: 10/30/16 22:02 Dose: 7.5 mg Morphine Sulfate (Morphine) 1 mg IVP Q4 PRN PRN Reason: Pain, moderate (4-7) Last Admin: 10/29/16 19:10 Dose: 1 mg Multivitamins/Minerals (Therapeutic-M Tab) 1 tab PO DAILY [facility] Last Admin: 10/30/16 11:33 Dose: 1 tab Ondansetron HCl (Zofran Inj) 4 mg IVP Q6 PRN PRN Reason: Nausea/Vomiting Last Admin: 10/29/16 18:06 Dose: 4 mg Timolol Maleate (Timoptic 0.5% Oph Soln) 1 drop OU DAILY [facility] Last Admin: 10/30/16 11:33 Dose: 1 drop - Labs Labs: 10/31/16 05:45 10/31/16 05:45 - Constitutional Appears: No Acute Distress - Head Exam Head Exam: NORMOCEPHALIC - Eye Exam Eye Exam: Normal appearance - ENT Exam ENT Exam: Normal Oropharynx - Respiratory Exam Respiratory Exam: NORMAL BREATHING PATTERN - Cardiovascular Exam Cardiovascular Exam: +S1, +S2 - GI/Abdominal Exam GI & Abdominal Exam: Soft. absent: Distended, Guarding, Rigid - Neurological Exam Neurological Exam: Alert, Awake, Oriented x3 - Psychiatric Exam Psychiatric exam: Normal Mood - Skin Skin Exam: Dry, Intact, Warm Assessment and Plan - Assessment and Plan (Free Text) Assessment: -Low residue diet - Monitor ostomy output - No general surgery intervention at this present time - C/w Abx per ID - Continue care as per Medical team -Will d/w Dr. Singer <Manuel Singer - Last Filed: 10/31/16 11:05> Subjective - Date & Time of Evaluation Date of Evaluation: 10/31/16 Time of Evaluation: 10:25 - Subjective Subjective: Patient was seen and examined at the bedside. Agree with resident's note above. Objective - Vital Signs/Intake and Output Vital Signs (last 24 hours): Temp Pulse Resp BP Pulse Ox 97.3 F L 61 20 112/70 98 10/31/16 08:44 10/31/16 10:36 10/31/16 08:44 10/31/16 09:16 10/31/16 10:36 Intake and Output: 10/31/16 10/31/16 06:59 18:59 Intake Total 750 Output Total 700 Balance 50 - Medications Medications: Current Medications Albuterol/Ipratropium (Duoneb 3 Mg/0.5 Mg (3 Ml) Ud) 3 ml INH RQ6 PRN PRN Reason: Shortness of Breath Allopurinol (Zyloprim) 300 mg PO DAILY [facility] Last Admin: 10/31/16 09:17 Dose: 300 mg Atorvastatin Calcium (Lipitor) 10 mg PO HS [facility] Last Admin: 10/30/16 21:52 Dose: 10 mg Escitalopram Oxalate (Lexapro) 60 mg PO DAILY [facility] Last Admin: 10/31/16 09:14 Dose: 60 mg Famotidine (Pepcid) 20 mg PO DAILY@2100 [facility] Last Admin: 10/30/16 21:52 Dose: 20 mg Cefazolin Sodium 1 gm/ Sodium (Chloride) 100 mls @ 100 mls/hr IVPB Q8 [facility] Last Admin: 10/31/16 09:13 Dose: 100 mls/hr Lactobacillus Acidophilus (Bacid Acidophilus) 1 cap PO BID [facility] Last Admin: 10/31/16 09:19 Dose: 1 cap Latanoprost (Xalatan Opht) 1 drop OU HS [facility] Last Admin: 10/30/16 22:30 Dose: 1 drop Metoclopramide HCl (Reglan) 10 mg IVP Q6 PRN PRN Reason: Nausea/Vomiting Last Admin: 10/30/16 09:10 Dose: 10 mg Metoprolol Succinate (Toprol Xl) 25 mg PO DAILY [facility] Last Admin: 10/31/16 09:16 Dose: 25 mg Mirtazapine (Remeron) 7.5 mg PO HS PRN PRN Reason: Sleep Last Admin: 10/30/16 22:02 Dose: 7.5 mg Morphine Sulfate (Morphine) 1 mg IVP Q4 PRN PRN Reason: Pain, moderate (4-7) Last Admin: 10/29/16 19:10 Dose: 1 mg Multivitamins/Minerals (Therapeutic-M Tab) 1 tab PO DAILY [facility] Last Admin: 10/31/16 09:15 Dose: 1 tab Ondansetron HCl (Zofran Inj) 4 mg IVP Q6 PRN PRN Reason: Nausea/Vomiting Last Admin: 10/29/16 18:06 Dose: 4 mg Timolol Maleate (Timoptic 0.5% Oph Soln) 1 drop OU DAILY [facility] Last Admin: 10/31/16 09:16 Dose: 1 drop - Labs Labs: 10/31/16 05:45 10/31/16 05:45
[2016-10-31] MEDS: Multivitamin With Minerals Tab PO SCH (09:15)
[2016-10-31] MEDS: Metoprolol Succinate 25 mg XL Tab PO SCH (09:16)
[2016-10-31] MEDS: Lactobacillus Acidophilus 500 MU Cap PO SCH ×2 (09:19→16:43)
[2016-10-31] MEDS: Latanoprost 0.005% Opht SOUTION OU SCH (22:38)
[2016-11-01] MEDS: ceFAZolin 1 GM in Sodium Chloride 0.9% 100 ML IVPB SCH ×2 (00:50→09:21)
[2016-11-01 07:07] LABS: ALB/GLOB RATIO 0.9 (1.0-2.1); BILIRUBIN,TOTAL 0.5 mg/dl (0.2-1.3); POTASSIUM 4.4 MMOL/L (3.6-5.0); TOTAL PROTEIN 7.2 G/DL (6.3-8.2)
[2016-11-01 07:09] LABS: BASO # 0.1 K/uL (0.0-0.2); BASO % 0.5 % (0.0-2.0); EOS # 0.4 K/uL (0.0-0.7); HEMATOCRIT 36.6 % (34.0-47.0); LYMPH # 1.9 K/uL (1.0-4.3); LYMPH % 15.2 % (20.0-40.0); MEAN CORPUSCULAR HEMOGLOBIN 31.6 pg (27.0-31.0); MEAN CORPUSCULAR HGB CONC 33.2 g/dL (33.0-37.0); MONO # 1.4 K/uL (0.0-0.8); MONO % 11.7 % (0.0-10.0); NEUT # 8.5 K/uL (1.8-7.0); NEUT % 69.6 % (50.0-75.0); RED CELL DISTRIBUTION WIDTH 15.6 % (11.5-14.5); WHITE BLOOD COUNT 12.2 K/uL (4.8-10.8)
[2016-11-01 08:54] VITALS: BP 124/65; TEMP 98.7
[2016-11-01] MEDS: Lactobacillus Acidophilus 500 MU Cap PO SCH (09:21)
[2016-11-01] MEDS: Metoprolol Succinate 25 mg XL Tab PO SCH (09:22)
[2016-11-01] MEDS: Multivitamin With Minerals Tab PO SCH (09:22)
[2016-11-01 11:35] VITALS: PULSE 63; O2SAT 97
--- NOTE | 2016-11-01 13:43 | CP.PCM.DIS ---
Provider - Provider Date of Admission: 10/26/16 14:23 Attending physician: Mamadou Beckman MD Primary care physician: Dr. Beckman Consults: ID, surgery, INCOME TAX ANALYST Time Spent in preparation of Discharge (in minutes): 30 Diagnosis - Discharge Diagnosis (1) Bowel obstruction Status: Acute (2) Urinary tract infection Status: Acute Hospital Course - Lab Results Lab Results: Micro Results 10/28/16 15:01 Urine,Clean Catch Urine Culture - Final No Growth (<1,000 CFU/ML) Most Recent Lab Values WBC 12.2 K/uL (4.8-10.8) H 11/01/16 06:35 RBC 3.85 Mil/uL (3.80-5.20) 11/01/16 06:35 Hgb 12.2 g/dL (12.0-16.0) 11/01/16 06:35 Hct 36.6 % (34.0-47.0) 11/01/16 06:35 MCV 95.0 fl (81.0-99.0) 11/01/16 06:35 MCH 31.6 pg (27.0-31.0) H 11/01/16 06:35 MCHC 33.2 g/dL (33.0-37.0) 11/01/16 06:35 RDW 15.6 % (11.5-14.5) H 11/01/16 06:35 Plt Count 389 K/uL (130-400) 11/01/16 06:35 MPV 9.0 fl (7.2-11.7) 11/01/16 06:35 Neut % (Auto) 69.6 % (50.0-75.0) 11/01/16 06:35 Lymph % (Auto) 15.2 % (20.0-40.0) L 11/01/16 06:35 [place] % (Auto) 11.7 % (0.0-10.0) H 11/01/16 06:35 Eos % (Auto) 3.0 % (0.0-4.0) 11/01/16 06:35 Baso % (Auto) 0.5 % (0.0-2.0) 11/01/16 06:35 Neut # 8.5 K/uL (1.8-7.0) H 11/01/16 06:35 Lymph # 1.9 K/uL (1.0-4.3) 11/01/16 06:35 [place] # 1.4 K/uL (0.0-0.8) H 11/01/16 06:35 Eos # 0.4 K/uL (0.0-0.7) 11/01/16 06:35 Baso # 0.1 K/uL (0.0-0.2) 11/01/16 06:35 Sodium 145 mmol/l (132-148) 11/01/16 06:35 Potassium 4.4 MMOL/L (3.6-5.0) 11/01/16 06:35 Chloride 110 mmol/L (98-107) H 11/01/16 06:35 Carbon Dioxide 19 mmol/L (22-30) L 11/01/16 06:35 Anion Gap 20 (10-20) 11/01/16 06:35 BUN 35 mg/dl (7-17) H 11/01/16 06:35 Creatinine 1.7 mg/dL (0.7-1.2) H 11/01/16 06:35 Est GFR ( Amer) 35 11/01/16 06:35 Est GFR (Non-Af Amer) 29 11/01/16 06:35 Random Glucose 100 mg/dL (65-105) 11/01/16 06:35 Calcium 10.0 mg/dL (8.4-10.2) 11/01/16 06:35 Total Bilirubin 0.5 mg/dl (0.2-1.3) 11/01/16 06:35 AST 21 U/L (14-36) 11/01/16 06:35 ALT 12 U/L (9-52) 11/01/16 06:35 Alkaline Phosphatase 102 U/L (38-126) 11/01/16 06:35 Total Protein 7.2 G/DL (6.3-8.2) 11/01/16 06:35 Albumin 3.4 g/dL (3.5-5.0) L 11/01/16 06:35 Globulin 3.8 gm/dL (2.2-3.9) 11/01/16 06:35 Albumin/Globulin Ratio 0.9 (1.0-2.1) L 11/01/16 06:35 Lipase 446 U/L (23-300) H 10/28/16 14:11 Urine Color Red (YELLOW) 10/28/16 15:01 Urine Clarity Cloudy (Clear) 10/28/16 15:01 Urine pH 6.0 (5.0-8.0) 10/28/16 15:01 Ur Specific [place] 1.020 (1.003-1.030) 10/28/16 15:01 Urine Protein 100 mg/dL (NEGATIVE) 10/28/16 15:01 Urine Glucose (UA) 50 mg/dL (Normal) 10/28/16 15:01 Urine Ketones Negative mg/dL (NEGATIVE) 10/28/16 15:01 Urine Blood Large (NEGATIVE) 10/28/16 15:01 Urine Nitrate Negative (NEGATIVE) 10/28/16 15:01 Urine Bilirubin Negative (NEGATIVE) 10/28/16 15:01 Urine Urobilinogen 0.2-1.0 mg/dL (0.2-1.0) 10/28/16 15:01 Ur Leukocyte Esterase Small Javier/uL (Negative) 10/28/16 15:01 Urine RBC (Auto) 4927 /hpf (0-3) H 10/28/16 15:01 Urine WBC Clumps (Auto) Many /hpf (NONE) H 10/28/16 15:01 Urine Microscopic WBC 459 /hpf (0-5) H 10/28/16 15:01 - Hospital Course Hospital Course: Pt was re-admitted to the hospital from TCU for a UTI leading to hematuria and mechanical obstruction due to her hernia, cultures were negative, renal and bladder ultrasound were wnl. pt last vomiting episode was yesterday, states she feels a lot better, nausea has improved and she does not want to go to rehab, she prefers to go home as she gets a lot of exercise at home Discharge Exam - Head Exam Head Exam: NORMOCEPHALIC - Eye Exam Eye Exam: Normal appearance, PERRL - ENT Exam ENT Exam: Mucous Membranes Moist - Respiratory Exam Respiratory Exam: NORMAL BREATHING PATTERN - Cardiovascular Exam Cardiovascular Exam: REGULAR RHYTHM, +S1, +S2 - GI/Abdominal Exam GI & Abdominal Exam: Normal Bowel Sounds, Soft - Extremities Exam Extremities exam: normal inspection - Neurological Exam Neurological exam: Alert, CN II-XII Intact, Oriented x3 Discharge Plan - Follow Up Plan Condition: STABLE Disposition: HOME/ ROUTINE Instructions: Urinary Tract Infection in Women (DC), Urinary Tract Infection in Women (GEN) Additional Instructions: COLOSTOMY CARE. VISITING NURSE. Referrals: Mamadou Beckman MD [Staff Provider] -
== END 2016-11-01 16:42 | disposition home health service (06) | DRG 394 ==
LOC: H.ER 13:28 → H.ERHOLD 14:23 → H.MEDSURG1 18:55
PROVIDERS: ADMIT Family Medicine; ATTEND Family Medicine
DX: K43.6 Other and unspecified ventral hernia with obstruction, without gangrene (principal); N18.4 Chronic kidney disease, stage 4 (severe); J44.9 Chronic obstructive pulmonary disease, unspecified; N39.0 Urinary tract infection, site not specified; L02.818 Cutaneous abscess of other sites; R31.9 Hematuria, unspecified; E78.00 Pure hypercholesterolemia, unspecified; F17.210 Nicotine dependence, cigarettes, uncomplicated; H40.9 Unspecified glaucoma; Z85.41 Personal history of malignant neoplasm of cervix uteri; Z90.49 Acquired absence of other specified parts of digestive tract; I12.9 Hypertensive chronic kidney disease with stage 1 through stage 4 chronic kidney disease, or unspecified chronic kidney disease; Z93.3 Colostomy status

== ENCOUNTER 2017-02-20 07:10 | Day surgery (SDC) | payer MEDICARE, OTHER ==
[2017-02-15 09:21] VITALS: BMI 41.7
[2017-02-20] MEDS ORDERED: cefTRIAXone (Rocephin) 1 gm Inj ONE (11:45)
[2017-02-20] MEDS ORDERED: Iohexol 240 200 ML IJ ONE (11:45)
[2017-02-20] MEDS ORDERED: Propofol 10 mg/ml Inj (20 ML) ONE (11:54)
[2017-02-20] MEDS ORDERED: Midazolam 2 MG/2 ML VIAL ONE (11:54)
[2017-02-20] MEDS ORDERED: Lactated Ringer's 1,000 ML IV ONE (12:00)
[2017-02-20 14:53] VITALS: BP 135/41; PULSE 81; RESP 18; TEMP 98; O2SAT 97
--- NOTE | 2017-03-02 15:08 | RAD ---
PROCEDURE: Intraoperative Fluoroscopy. HISTORY: FLUOROSCOPY FINDINGS: Fluoroscopic assistance was provided for cystogram/retrograde studies.. Please refer to the operative report from during the procedure: 0.4 seconds.
--- NOTE | 2017-04-14 19:28 | OP ---
PROCEDURE DATE: 02/20/2017 PREOPERATIVE DIAGNOSIS: Rule out vesicoenteric fistula. POSTOPERATIVE DIAGNOSES: Bilateral ureteral efflux and persistent vaginal contrast. PROCEDURE PERFORMED: Cystoscopy with cystogram pressure. DESCRIPTION OF PROCEDURE: The patient was placed on the operating room table in supine position and then a dorsal lithotomy position. She was given IV sedation. The area of the groin were draped and prepped in the sterile manner. Initially, I performed the cystoscopy on the patient to evaluate the bladder for any obvious fistula opening and was unable to detect any. Left and right ureteral orifices were normally placed. There was no unusual bladder wall inflammation or swelling. At this time, once I secured the information of a negative cystoscopy, I then inserted a Damon catheter and filled the bladder to significant pressure, almost 300 mL of fluid was placed of contrast. At this time, I applied some abdominal pressure and I was able to visualize bilateral ureteral reflux probably equal on both sides that was grade 1 in nature. I then emptied the bladder briskly and there appeared to be some residual contrast in the lower vaginal area. I went there with a gauze to try to clean the area to make sure that this was not spillage, but on repeat films that appear to be persistent. This certainly did not appear to be in the rectal area, in the colon, but this persistence was there. They will wait for a final radiologic read on this, but this was the only finding that I noted at this time, then the patient was taken from the operating room in good condition. Ascencion John MD
== END 2017-02-20 15:00 | disposition home or self-care (01) ==
LOC: H.OPSURG 07:10
PROVIDERS: ATTEND Urology
DX: N32.2 Vesical fistula, not elsewhere classified (principal); J44.9 Chronic obstructive pulmonary disease, unspecified; I10 Essential (primary) hypertension
CPT/HCPCS: 52000; J0696; J2250; J2704; J3010; J7120; Q9966

== ENCOUNTER 2017-03-13 09:14 | Day surgery (SDC) | payer MEDICARE, OTHER ==
[2017-03-13 09:53] VITALS: RESP 18
[2017-03-13 10:20] VITALS: BMI 40.0
[2017-03-13] MEDS: cefTRIAXone (Rocephin) 1 gm Inj ONE ×2 (11:17→11:40)
[2017-03-13] MEDS: Methylene Blue 10 mg/mL(10ml) IV ONE ×2 (11:18→11:50)
[2017-03-13] MEDS ORDERED: Sodium Chloride 0.9% 1,000 ML IV ONE (11:19)
[2017-03-13] MEDS ORDERED: Propofol 10 mg/ml Inj (20 ML) ONE (11:22)
[2017-03-13] MEDS ORDERED: Iohexol 300 100 ML IJ ONE (11:48)
--- NOTE | 2017-03-13 13:26 | RAD ---
PROCEDURE: Intraoperative Fluoroscopy. HISTORY: CYSTOGRAM FINDINGS: Fluoroscopic assistance was provided for cystogram. Please refer to
[2017-03-13 14:33] VITALS: BP 128/68; PULSE 85; TEMP 98.3; O2SAT 98
--- NOTE | 2017-03-13 16:28 | OP ---
PROCEDURE DATE: 03/13/2017 PREOPERATIVE DIAGNOSIS: Recurrent urinary tract infection, rule out vesicoenteric fistula. POSTOPERATIVE DIAGNOSIS: Recurrent urinary tract infection, rule out vesicoenteric fistula. PROCEDURE PERFORMED: Cystogram. DESCRIPTION OF PROCEDURE: The patient was placed on the operating table in a dorsal lithotomy position. She was given IV sedation at this time. A #22 Damon catheter was inserted, filled the balloon with 5 mL, and at this time, I inserted a mix of methylene blue and Cystografin material to be able to do a cystogram as well as to look for obvious leaks. I put 2 clean pads, 1 in the rectum, 1 in the vagina. I filled the bladder until such time that she under anesthesia was not entering any more on the gravity, after which I inserted another 60 mL under pressure, and at that time I took x-rays as well as visual examination. There was no leak around the urethra. At this time, then I removed the fluid from the bladder, took another repeat x-ray. The bladder was empty, I did not see any Cystografin material extravasating from the bladder. I then removed the 2 pads, the 1 in the rectum and the 1 in the vagina, and neither 1 of them showed any evidence of the methylene blue dye that was placed in the bladder. I then refilled the bladder again under pressure, did the same maneuver, did a visual inspection, so no methylene blue, and so on x-ray no extravasation. This information was secured. The patient was taken from the operating room in good condition. Ascencion John MD
== END 2017-03-13 14:35 | disposition home or self-care (01) ==
LOC: H.OPSURG 09:14
PROVIDERS: ATTEND Urology
DX: N39.0 Urinary tract infection, site not specified (principal); F17.200 Nicotine dependence, unspecified, uncomplicated; I10 Essential (primary) hypertension
CPT/HCPCS: 51600; J0696; J2001; J2405; J2704; J7040; Q9967

== ENCOUNTER 2017-07-08 11:08 | Emergency (ER) | payer MEDICARE, OTHER ==
[2017-07-08 11:42] VITALS: BP 124/64; PULSE 89; RESP 18; TEMP 98; O2SAT 96
--- NOTE | 2017-07-08 11:47 | ED PDOC ---
HPI: Female Pain Time Seen by Provider: 07/08/17 11:15 Chief Complaint (Nursing): Female Genitourinary History Per: Patient Current Symptoms Are (Timing): Still Present Severity: Mild Pain Scale Rating Of: 2 Quality Of Discomfort: Sharp, Stabbing Associated Symptoms: Urinary Symptoms (Blood in urine) Additional Complaint(s): Sharp stabbing pain left side vagina x 2 days assoc with blood in urine. Denies vaginal discharge or lower abd pain Abnormal Vaginal Bleeding: Yes Past Medical History Vital Signs: Last Vital Signs Temp 98 F 07/08/17 11:39 Pulse 89 07/08/17 11:39 Resp 18 07/08/17 11:39 BP 124/64 07/08/17 11:39 Pulse Ox 96 07/08/17 11:39 - Medical History PMH: Anxiety, Arthritis, COPD, Depression, Diverticulitis, Gall Bladder Disease , HTN, Hypercholesterolemia, Rheumatoid Arthritis Denies: HIV, Chronic Kidney Disease - Surgical History Surgical History: Cholecystectomy Other surgeries: s/p colostomy - Family History Family History: States: Unknown Family Hx - Home Medications Home Medications: Ambulatory Orders Medication Instructions Recorded Escitalopram [Lexapro] 60 mg PO DAILY 09/21/14 Metoprolol Tartrate [Lopressor] 25 mg PO DAILY #0 tab 11/14/14 Allopurinol 300 mg PO DAILY 05/12/15 Multivitamin/Iron/Folic Acid 1 tab PO DAILY 05/12/15 [Centrum Complete Multivit Tab] Acetaminophen [Tylenol 325mg tab] 650 mg PO Q4 PRN #0 tab 07/15/15 Latanoprost 0.005% Opht [Xalatan 1 drop OU HS #0 bottle 07/15/15 Opht] Atorvastatin [Lipitor] 10 mg PO HS 12/05/15 Lactobacillus Acidophilus [Bacid 1 cap PO BID #20 cap 12/10/15 Acidophilus] Timolol 0.5% Ophth [Timoptic 0.5% 1 drop OU DAILY 12/20/15 Ophth Soln] Albuterol/Ipratropium [Duoneb 3 3 ml INH RQ6 PRN #0 neb 12/21/15 mg/0.5 mg (3 ml) UD] Famotidine [Pepcid] 20 mg PO DAILY@2100 #0 tab 12/21/15 Mirtazapine [Remeron] 7.5 mg PO HS PRN #0 tab 12/21/15 Multivitamin [Multi-Delyn Liquid] 5 ml PO DAILY #0 syr 12/21/15 Ciprofloxacin [Cipro] 500 mg PO BID 03/13/17 Naproxen [Naprosyn] 500 mg PO Q12H #20 tab 07/08/17 Sulfamethoxazole/Trimethoprim 1 tab PO BID #20 tab 07/08/17 [Bactrim DS 800 mg-160 mg] - Allergies Allergies/Adverse Reactions: Allergies Allergy/AdvReac Type Severity Reaction Status Date / Time No Known Allergies Allergy Verified 10/20/16 16:07 Review of Systems Gastrointestinal: Negative for: Abdominal Pain Genitourinary Female: Positive for: Hematuria, Other (vaginal pain) Physical Exam - Physical Exam Appears: Positive for: Non-toxic, No Acute Distress Skin: Positive for: Normal Color, Warm, DRY Gastrointestinal/Abdominal: Positive for: Bowel Sounds, Soft, Other (colostomy intact) Pelvic Exam: Positive for: Other (Tenderness left labia majora, no mass or fluctuance. No vaginal bleeding or discharge. Hypertrophic vaginal wall No masses.) - Laboratory Results Result Diagrams: 07/08/17 12:16 - ECG O2 Sat by Pulse Oximetry: 96 Disposition - Clinical Impression Clinical Impression: Urinary tract infection - Patient ED Disposition Is Patient to be Admitted: No Counseled Patient/Family Regarding: Studies Performed, Diagnosis, Need For Followup, Rx Given - Disposition [facility]errals: [facility]Outside[facility] [[facility]] Disposition: Routine/Home Disposition Time: 13:36 Condition: FAIR Prescriptions: Naproxen [Naprosyn] 500 mg PO Q12H #20 tab Sulfamethoxazole/Trimethoprim [Bactrim DS 800 mg-160 mg] 1 tab PO BID #20 tab Instructions: Urinary Tract Infection in Women (ED) Forms: [employer] (Spanish)
[2017-07-08 12:25] LABS: BASO # 0.1 K/uL (0.0-0.2); BASO % 0.7 % (0.0-2.0); EOS # 0.4 K/uL (0.0-0.7); EOS % 4.3 % (0.0-4.0); HEMATOCRIT 37.7 % (34.0-47.0); LYMPH # 1.6 K/uL (1.0-4.3); LYMPH % 19.4 % (20.0-40.0); MEAN CELL VOLUME 95.4 fl (81.0-99.0); MEAN CORPUSCULAR HEMOGLOBIN 31.3 pg (27.0-31.0); MEAN CORPUSCULAR HGB CONC 32.8 g/dL (33.0-37.0); MEAN PLATELET VOLUME 8.8 fl (7.2-11.7); MONO # 0.9 K/uL (0.0-0.8); MONO % 10.7 % (0.0-10.0); NEUT # 5.4 K/uL (1.8-7.0); NEUT % 64.9 % (50.0-75.0); NRBC % 0.1 % (0.0-0.0); RED CELL DISTRIBUTION WIDTH 15.3 % (11.5-14.5); WHITE BLOOD COUNT 8.4 K/uL (4.8-10.8)
--- NOTE | 2017-07-08 13:51 | US ---
HISTORY: Episode of vaginal spotting COMPARISON: None available. TECHNIQUE: Comparison made with prior pelvic ultrasound 09/21/2016. FINDINGS: UTERUS: Uterus is anteverted measuring approximately 4.8 x 1.8 x 1.6 cm. . Re- demonstrated are 2 small elliptical shaped calcifications seen within the posterior uterine body likely representing calcified uterine fibroids, 1 measuring approximately 8 mm in greatest dimension and the other measuring 7 mm in greatest dimension. Normal in size and appearance. No fibroid or other mass lesion seen. ENDOMETRIUM: Endometrium measures approximately 1.6 mm in diameter. Unremarkable. CERVIX: Cervix measures approximately 2.1 cm. No gross cervical abnormality. RIGHT OVARY: Right ovary not visualized LEFT OVARY: Left ovary not visualized FREE FLUID: No significant free fluid noted. OTHER FINDINGS: None. IMPRESSION: Re- demonstrated are what probably represent 2 small calcified uterine fibroids. Neither adnexa visualized.
== END 2017-07-08 13:42 | disposition home or self-care (01) ==
LOC: H.ER 11:08
DX: N39.0 Urinary tract infection, site not specified (principal); E78.00 Pure hypercholesterolemia, unspecified; F32.9 Major depressive disorder, single episode, unspecified; F41.9 Anxiety disorder, unspecified; I10 Essential (primary) hypertension; J44.9 Chronic obstructive pulmonary disease, unspecified; M06.9 Rheumatoid arthritis, unspecified

== ENCOUNTER 2017-07-10 01:03 | Inpatient (IN) | payer MEDICARE, OTHER ==
[2017-07-10 01:08] VITALS: BMI 41.5
[2017-07-10] MEDS ORDERED: cefTRIAXone (Rocephin) 1 gm Inj IVPB ONE (01:40)
--- NOTE | 2017-07-10 01:43 | ED PDOC ---
HPI: Abdomen <Ej Mckee - Last Filed: 07/10/17 06:14> Chief Complaint (Provider): abdominal pain/dysuria History Per: Patient (82 y/o female h/o Diverticulitis with fistula and repeated utis here for dysuria/vaginal pain x few days. Seen yesterday in ED with diagnosis of UTI and started on Bactrim. No fevers/chills. No vomiting. NOtes pain uncontrolled by naproxen.) <Julia Brunner - Last Filed: 07/11/17 04:34> Time Seen by Provider: 07/10/17 01:20 Chief Complaint (Nursing): Abdominal Pain Past Medical History <Ej Mckee - Last Filed: 07/10/17 06:14> Reviewed: Historical Data, Nursing Documentation, Vital Signs - Medical History PMH: Anxiety, Arthritis, COPD, Depression, Diverticulitis, Gall Bladder Disease , HTN, Hypercholesterolemia, Rheumatoid Arthritis Denies: HIV, Chronic Kidney Disease - Surgical History Surgical History: Cholecystectomy - Family History Family History: States: Unknown Family Hx <Julia Brunner - Last Filed: 07/11/17 04:34> Vital Signs: Last Vital Signs Temp 97.6 F 07/11/17 00:00 Pulse 73 07/11/17 00:00 Resp 20 07/11/17 00:00 BP 117/68 07/11/17 00:00 Pulse Ox 95 07/11/17 00:00 - Home Medications Home Medications: Ambulatory Orders Medication Instructions Recorded Escitalopram [Lexapro] 60 mg PO DAILY 09/21/14 Metoprolol Tartrate [Lopressor] 25 mg PO DAILY #0 tab 11/14/14 Allopurinol 300 mg PO DAILY 05/12/15 Multivitamin/Iron/Folic Acid 1 tab PO DAILY 05/12/15 [Centrum Complete Multivit Tab] Acetaminophen [Tylenol 325mg tab] 650 mg PO Q4 PRN #0 tab 07/15/15 Latanoprost 0.005% Opht [Xalatan 1 drop OU HS #0 bottle 07/15/15 Opht] Atorvastatin [Lipitor] 10 mg PO HS 12/05/15 Famotidine [Pepcid] 20 mg PO DAILY@2100 #0 tab 12/21/15 Mirtazapine [Remeron] 7.5 mg PO HS PRN #0 tab 12/21/15 Naproxen [Naprosyn] 500 mg PO Q12H #20 tab 07/08/17 Sulfamethoxazole/Trimethoprim 1 tab PO BID #20 tab 07/08/17 [Bactrim DS 800 mg-160 mg] - Allergies Allergies/Adverse Reactions: Allergies Allergy/AdvReac Type Severity Reaction Status Date / Time No Known Allergies Allergy Verified 07/10/17 01:08 Review of Systems ROS Statement: Except As Marked, All Systems Reviewed And Found Negative <Julia Brunner - Last Filed: 07/11/17 04:34> Physical Exam - Reviewed Nursing Documentation Reviewed: Yes Vital Signs Reviewed: Yes - Physical Exam Appears: Positive for: Well, Non-toxic, No Acute Distress Head Exam: Positive for: ATRAUMATIC, NORMAL INSPECTION, NORMOCEPHALIC Skin: Positive for: Normal Color, Warm, DRY Eye Exam: Positive for: EOMI, Normal appearance, PERRL ENT: Positive for: Normal ENT Inspection Neck: Positive for: Normal, Painless ROM Cardiovascular/Chest: Positive for: Regular Rate, Rhythm Respiratory: Positive for: CNT, Normal Breath Sounds Gastrointestinal/Abdominal: Positive for: Normal Exam, Bowel Sounds, Soft Back: Positive for: Normal Inspection Extremity: Positive for: Normal ROM Neurologic/Psych: Positive for: Alert, Oriented <Julia Brunner - Last Filed: 07/11/17 04:34> - Laboratory Results Result Diagrams: 07/10/17 01:56 07/10/17 01:56 <Ej Mckee - Last Filed: 07/10/17 06:14> - Laboratory Results Result Diagrams: 07/10/17 10:00 07/10/17 10:00 - ECG O2 Sat by Pulse Oximetry: 98 <Julia Brunner - Last Filed: 07/11/17 04:34> Medical Decision Making <Ej Mckee - Last Filed: 07/10/17 06:14> <Julia Brunner - Last Filed: 07/11/17 04:34> Medical Decision MakinAM Provider spoke with Dr Clemons regarding asmission who has asked that patient be admitted under Dr Ab Berger has accepted patient under his service. (Ej Mckee) Disposition <Elias Mckeeam Briones - Last Filed: 07/10/17 06:14> - Patient ED Disposition Is Patient to be Admitted: Yes - Disposition Disposition Time: 04:04 - Pt Status Changed To: Hospital Disposition Of: Inpatient - Admit Certification Admit to Inpatient:: After my assessment, the patient will require hospitalization for at least two midnights. This is because of the severity of symptoms shown, intensity of services needed, and/or the medical risk in this patient being treated as an outpatient. <Julia Brunner - Last Filed: 07/11/17 04:34> - Clinical Impression Clinical Impression: UTI (urinary tract infection), Renal insufficiency - Disposition Condition: STABLE
[2017-07-10] MEDS ORDERED: cefTRIAXone IV 1 gm in Dextros 50 ML IVPB ONE (02:01)
[2017-07-10] MEDS: cefTRIAXone IV 1 gm in Dextros 50 ML IVPB ONE ×2 (02:03→10:50)
[2017-07-10 02:05] LABS: BASO # 0.1 K/uL (0.0-0.2); BASO % 1.4 % (0.0-2.0); EOS # 0.3 K/uL (0.0-0.7); EOS % 3.4 % (0.0-4.0); HEMATOCRIT 35.6 % (34.0-47.0); LYMPH # 1.4 K/uL (1.0-4.3); LYMPH % 13.8 % (20.0-40.0); MEAN CELL VOLUME 95.6 fl (81.0-99.0); MEAN CORPUSCULAR HEMOGLOBIN 30.9 pg (27.0-31.0); MEAN CORPUSCULAR HGB CONC 32.4 g/dL (33.0-37.0); MEAN PLATELET VOLUME 9.2 fl (7.2-11.7); MONO % 10.3 % (0.0-10.0); NEUT % 71.1 % (50.0-75.0); WHITE BLOOD COUNT 9.9 K/uL (4.8-10.8)
[2017-07-10 02:08] LABS: RBC URINE 1283 /hpf (0-3); URINE BACTERIA MANY (<OCC); URINE BILIRUBIN NEGATIVE (NEGATIVE); URINE BLOOD LARGE (NEGATIVE); URINE COLOR YELLOW (YELLOW); URINE GLUCOSE (UA) NEG (Normal); URINE KETONE NEGATIVE (NEGATIVE); URINE LEUKOCYTE ESTERASE LARGE Leu/uL (Negative); URINE PROTEIN 100 mg/dL (NEGATIVE); URINE UROBILINOGEN 0.2-1.0 mg/dL (0.2-1.0); WBC CLUMPS OCC /hpf; WBC URINE 925 /hpf (0-5)
[2017-07-10 02:13] LABS: CALCIUM 8.9 mg/dL (8.4-10.2); POTASSIUM 4.7 MMOL/L (3.6-5.0)
[2017-07-10] MEDS: Sodium Chloride 0.9% 250 ML IV SCH ×2 (03:02→04:58)
[2017-07-10] MEDS ORDERED: Sodium Chloride 0.9% 250 ML IV SCH (06:10)
[2017-07-10] MEDS ORDERED: cefTRIAXone IV 1 gm in Dextros 50 ML IVPB SCH (09:00)
[2017-07-10 10:13] LABS: BASO % 0.4 % (0.0-2.0); EOS # 0.3 K/uL (0.0-0.7); EOS % 3.8 % (0.0-4.0); HEMATOCRIT 32.3 % (34.0-47.0); LYMPH % 12.7 % (20.0-40.0); MEAN CELL VOLUME 96.5 fl (81.0-99.0); MEAN CORPUSCULAR HEMOGLOBIN 30.8 pg (27.0-31.0); MEAN CORPUSCULAR HGB CONC 31.9 g/dL (33.0-37.0); MEAN PLATELET VOLUME 8.7 fl (7.2-11.7); MONO # 0.6 K/uL (0.0-0.8); MONO % 7.7 % (0.0-10.0); NEUT # 5.8 K/uL (1.8-7.0); NEUT % 75.4 % (50.0-75.0); RED CELL DISTRIBUTION WIDTH 15.3 % (11.5-14.5); WHITE BLOOD COUNT 7.7 K/uL (4.8-10.8)
[2017-07-10] MEDS: Naproxen 500 MG TAB PO SCH ×2 (10:48→21:30)
[2017-07-10] MEDS: Multivitamin With Minerals Tab PO SCH (10:50)
[2017-07-10] MEDS: Sodium Chloride 0.45% 1,000 ML IV SCH ×2 (10:52→17:27)
[2017-07-10 11:01] LABS: CALCIUM 8.4 mg/dL (8.4-10.2); URIC ACID 4.2 mg/Dl (2.2-7.5)
[2017-07-10] MEDS: Oxycodone/Acetaminophen 5/325 mg Tab PO PRN ×2 (12:55→21:34)
[2017-07-10] MEDS: Lactobacillus Acidophilus 500 MU Cap PO SCH ×2 (13:17→17:37)
[2017-07-10] MEDS ORDERED: Alum-Mag Hydrox-Simethicone Susp (30 mL) PO ONE (18:00)
--- NOTE | 2017-07-10 19:02 | CP.PCM.HP ---
History of Present Illness - History of Present Illness History of Present Illness: CC: Abdominal Pain History of Present Illness: An 82 y/o female h/o Diverticulitis S/P with fistula and recurrent UTI here for dysuria/vaginal pain x few days. Seen yesterday in ED with diagnosis of UTI and started on Bactrim. No fevers/chills. No vomiting. Notes pain uncontrolled by Naproxen. Present on Admission - Present on Admission Any Indicators Present on Admission: No History of DVT/PE: No History of Uncontrolled Diabetes: No Urinary Catheter: No Decubitus Ulcer Present: No Review of Systems - Review of Systems All systems: reviewed and no additional remarkable complaints except - Gastrointestinal Gastrointestinal: As Per HPI, Abdominal Pain Past Patient History - Infectious Disease Hx of Infectious Diseases: None - Past Medical History & Family History Past Medical History?: Yes - Past Social History Smoking Status: Current Some Days Smoker Alcohol: None Drugs: Denies - CARDIAC Hx Hypercholesterolemia: Yes Hx Hypertension: Yes - PULMONARY Hx Chronic Obstructive Pulmonary Disease (COPD): Yes - NEUROLOGICAL Hx Neurological Disorder: No - HEENT Hx HEENT Problems: Yes Hx Cataracts: Yes (O.U) Hx Glaucoma: Yes - RENAL Hx Chronic Kidney Disease: No - ENDOCRINE/METABOLIC Hx Endocrine Disorders: No - HEMATOLOGICAL/ONCOLOGICAL Hx Cancer: Yes Hx Human Immunodeficiency Virus (HIV): No Other/Comment: Hx of Cervical Ca - INTEGUMENTARY Hx Dermatological Problems: No - MUSCULOSKELETAL/RHEUMATOLOGICAL Hx Arthritis: Yes Hx Falls: No Hx Rheumatoid Arthritis: Yes - GASTROINTESTINAL Hx Bowel Surgery: Yes (Colostomy X2) Hx Diverticulitis: Yes Hx Gall Bladder Disease: Yes Other/Comment: Colostomy. [place]-UroFistula. Uterine fistula - GENITOURINARY/GYNECOLOGICAL Hx Genitourinary Disorders: Yes Hx Cervical Cancer: Yes Hx Incontinence: Yes Hx Urinary Tract Infection: Yes Other/Comment: Hx [place]-uro fistula - PSYCHIATRIC Hx Anxiety: Yes Hx Depression: Yes Hx Substance Use: No - SURGICAL HISTORY Hx Surgeries: Yes Hx Cholecystectomy: Yes Other/Comment: Diverticular disease- Leading to to Colostomy; subsequent colo- uro fistula - ANESTHESIA Hx Anesthesia: Yes Hx Anesthesia Reactions: No Hx Malignant Hyperthermia: No Meds Allergies/Adverse Reactions: Allergies Allergy/AdvReac Type Severity Reaction Status Date / Time No Known Allergies Allergy Verified 07/10/17 01:08 Physical Exam - Constitutional Appears: Well, No Acute Distress - Head Exam Head Exam: ATRAUMATIC, NORMAL INSPECTION, NORMOCEPHALIC - Eye Exam Eye Exam: EOMI, Normal appearance, PERRL Pupil Exam: NORMAL ACCOMODATION, PERRL - ENT Exam ENT Exam: Mucous Membranes Moist, Normal Exam - Neck Exam Neck exam: Positive for: Full Rom, Normal Inspection - Respiratory Exam Respiratory Exam: Clear to Auscultation Bilateral, NORMAL BREATHING PATTERN. absent: Accessory Muscle Use, Rales, Wheezes - Cardiovascular Exam Cardiovascular Exam: REGULAR RHYTHM, +S1, +S2 - GI/Abdominal Exam GI & Abdominal Exam: Normal Bowel Sounds, Soft. absent: Tenderness Additional comments: Midline Surgical Scar. Right sided Colostomy with clean colostomy bag. - Extremities Exam Extremities exam: Positive for: normal capillary refill, normal inspection. Negative for: full ROM - Back Exam Back exam: CVA tenderness (L), NORMAL INSPECTION - Neurological Exam Neurological exam: Alert, CN II-XII Intact, Normal Gait, Oriented x3, Reflexes Normal - Psychiatric Exam Psychiatric exam: Normal Affect, Normal Mood - Skin Skin Exam: Dry, Intact, Normal Color, Warm Results - Vital Signs Recent Vital Signs: Last Vital Signs Temp 97.4 F L 07/10/17 16:12 Pulse 60 07/10/17 16:12 Resp 20 07/10/17 16:12 BP 114/78 07/10/17 16:12 Pulse Ox 95 07/10/17 16:12 - Labs Result Diagrams: 07/11/17 05:30 07/11/17 05:30 Labs: Laboratory Results - last 24 hr 07/10/17 07/10/17 07/10/17 01:53 01:56 01:56 WBC 9.9 RBC 3.73 L Hgb 11.5 L Hct 35.6 MCV 95.6 MCH 30.9 MCHC 32.4 L RDW 15.0 H Plt Count 224 MPV 9.2 Neut % (Auto) 71.1 Lymph % (Auto) 13.8 L [place] % (Auto) 10.3 H Eos % (Auto) 3.4 Baso % (Auto) 1.4 Neut # 7.0 Lymph # 1.4 [place] # 1.0 H Eos # 0.3 Baso # 0.1 Sodium 144 Potassium 4.7 Chloride 111 H Carbon Dioxide 21 L Anion Gap 17 BUN 38 H Creatinine 2.4 H Est GFR ( Amer) 24 Est GFR (Non-Af Amer) 19 POC Glucose (mg/dL) Random Glucose 91 Uric Acid Calcium 8.9 TSH 3rd Generation Urine Color Yellow Urine Clarity Turbid Urine pH 5.0 Ur Specific [place] 1.020 Urine Protein 100 Urine Glucose (UA) Neg Urine Ketones Negative Urine Blood Large Urine Nitrate Negative Urine Bilirubin Negative Urine Urobilinogen 0.2-1.0 Ur Leukocyte Esterase Large Urine RBC (Auto) 1283 H Urine WBC Clumps (Auto) Occ H Urine Microscopic WBC 925 H Ur Squamous Epith Cells 5 Urine Bacteria Many H 07/10/17 07/10/17 07/10/17 04:05 10:00 10:00 WBC 7.7 RBC 3.35 L Hgb 10.3 L Hct 32.3 L MCV 96.5 MCH 30.8 MCHC 31.9 L RDW 15.3 H Plt Count 192 MPV 8.7 Neut % (Auto) 75.4 H Lymph % (Auto) 12.7 L [place] % (Auto) 7.7 Eos % (Auto) 3.8 Baso % (Auto) 0.4 Neut # 5.8 Lymph # 1.0 [place] # 0.6 Eos # 0.3 Baso # 0.0 Sodium 142 Potassium 4.0 Chloride 112 H Carbon Dioxide 22 Anion Gap 12 BUN 32 H Creatinine 2.0 H Est GFR ( Amer) 29 Est GFR (Non-Af Amer) 24 POC Glucose (mg/dL) 98 Random Glucose 120 H Uric Acid 4.2 Calcium 8.4 TSH 3rd Generation 4.01 Urine Color Urine Clarity Urine pH Ur Specific [place] Urine Protein Urine Glucose (UA) Urine Ketones Urine Blood Urine Nitrate Urine Bilirubin Urine Urobilinogen Ur Leukocyte Esterase Urine RBC (Auto) Urine WBC Clumps (Auto) Urine Microscopic WBC Ur Squamous Epith Cells Urine Bacteria Assessment & Plan (1) UTI (urinary tract infection) Assessment and Plan: IVF IV Rocephin Urine and Blood Clture ID Consult Pain Medication PRN Status: Acute (2) Acute on chronic renal failure Assessment and Plan: IVF Monitor BMP Renal U/S Status: Acute (3) Gout Status: Chronic (4) COPD exacerbation Status: Chronic (5) Hypertension Status: Chronic Priority: Medium
[2017-07-10] MEDS: Latanoprost 0.005% Opht SOUTION OU SCH (21:39)
[2017-07-11] MEDS: Sodium Chloride 0.45% 1,000 ML IV SCH ×3 (00:56→20:05)
[2017-07-11] MEDS: Oxycodone/Acetaminophen 5/325 mg Tab PO PRN (04:20)
[2017-07-11 06:10] LABS: HEMATOCRIT 33.4 % (34.0-47.0); MEAN CELL VOLUME 97.7 fl (81.0-99.0); MEAN CORPUSCULAR HGB CONC 31.7 g/dL (33.0-37.0); RED CELL DISTRIBUTION WIDTH 15.4 % (11.5-14.5)
[2017-07-11 06:51] LABS: CALCIUM 8.8 mg/dL (8.4-10.2); POTASSIUM 5.1 MMOL/L (3.6-5.0)
[2017-07-11] MEDS: Lactobacillus Acidophilus 500 MU Cap PO SCH ×2 (09:33→16:29)
[2017-07-11] MEDS: Naproxen 500 MG TAB PO SCH (09:35)
[2017-07-11] MEDS: Multivitamin With Minerals Tab PO SCH (09:36)
--- NOTE | 2017-07-11 17:47 | US ---
PROCEDURE: Ultrasound of the Kidneys HISTORY: Acute on Chronic Renal Failure, Hematuria COMPARISON: None available. TECHNIQUE: Sonogram of the kidneys. FINDINGS: RIGHT KIDNEY: Measures: 4.1 x 4.5 x 10.1 cm. Normal in size, contour and echogenicity. There is evidence of renal cortical atrophy. No stone, solid mass lesion or hydronephrosis visualized. Incidental finding(s): Upper pole cyst 1.5 x 1.6 cm. This is unchanged. LEFT KIDNEY: Measures: 4.1 x 4.5 x 9.1 cm. Normal in size, contour and echogenicity. There is evidence of renal cortical atrophy No stone, solid mass lesion or hydronephrosis visualized. Simple cyst lower pole 1.1 x 1.6 x 1.8 cm OTHER FINDINGS: None. IMPRESSION: Bilateral renal cortical atrophy, mild simple cysts both kidneys.No significant interval change compared to the prior examination(s).
--- NOTE | 2017-07-11 18:44 | CP.PCM.PN ---
Subjective - Date & Time of Evaluation Date of Evaluation: 07/11/17 Time of Evaluation: 18:45 - Subjective Subjective: Seen and examined at the bed side. Still C/O Pain in Urination, and Lower abdomen. Denies fever or chills. Urine Culture Growing Gram Positive organism. Objective - Vital Signs/Intake and Output Vital Signs (last 24 hours): Temp Pulse Resp BP Pulse Ox 97.9 F 67 18 116/57 L 96 07/11/17 15:57 07/11/17 15:57 07/11/17 15:57 07/11/17 15:57 07/11/17 15:57 - Medications Medications: Current Medications Acetaminophen (Tylenol 325mg Tab) 650 mg PO Q4 PRN PRN Reason: Temperature Allopurinol (Zyloprim) 300 mg PO DAILY [facility] Last Admin: 07/11/17 09:36 Dose: 300 mg Atorvastatin Calcium (Lipitor) 10 mg PO HS [facility] Last Admin: 07/10/17 21:38 Dose: 10 mg Escitalopram Oxalate (Lexapro) 60 mg PO DAILY [facility] Last Admin: 07/11/17 09:33 Dose: 60 mg Famotidine (Pepcid) 20 mg PO DAILY@2100 [facility] Last Admin: 07/10/17 21:38 Dose: 20 mg Heparin Sodium (Porcine) (Heparin) 5,000 units SC Q8 [facility] PRN Reason: Protocol Last Admin: 07/11/17 16:29 Dose: 5,000 units Ceftriaxone Sodium 1 gm/ (Sodium Chloride) 100 mls @ 100 mls/hr IVPB DAILY [facility] PRN Reason: Protocol Last Admin: 07/11/17 09:43 Dose: 100 mls/hr Lactobacillus Acidophilus (Bacid Acidophilus) 1 cap PO BID [facility] Last Admin: 07/11/17 16:29 Dose: 1 cap Latanoprost (Xalatan Opht) 1 drop OU HS [facility] Last Admin: 07/10/17 21:39 Dose: 1 drop Metoprolol Tartrate (Lopressor) 25 mg PO DAILY [facility] Last Admin: 07/11/17 09:33 Dose: 25 mg Mirtazapine (Remeron) 7.5 mg PO HS PRN PRN Reason: Sleep Multivitamins/Minerals (Therapeutic-M Tab) 1 tab PO DAILY [facility] Last Admin: 07/11/17 09:36 Dose: 1 tab Naproxen (Naproxen) 500 mg PO Q12H [facility] Last Admin: 07/11/17 09:35 Dose: 500 mg Oxycodone/Acetaminophen (Percocet 5/325 Mg Tab) 1 tab PO Q6 PRN PRN Reason: Pain, moderate (4-7) Stop: 07/13/17 12:29 Last Admin: 07/11/17 04:20 Dose: 1 tab - Labs Labs: 07/11/17 05:30 07/11/17 05:30 - Constitutional Appears: Well - Head Exam Head Exam: ATRAUMATIC, NORMAL INSPECTION, NORMOCEPHALIC - Eye Exam Eye Exam: EOMI, Normal appearance, PERRL Pupil Exam: NORMAL ACCOMODATION, PERRL - ENT Exam ENT Exam: Mucous Membranes Moist, Normal Exam - Neck Exam Neck Exam: Full ROM, Normal Inspection. absent: Lymphadenopathy - Respiratory Exam Respiratory Exam: Clear to Ausculation Bilateral, NORMAL BREATHING PATTERN - Cardiovascular Exam Cardiovascular Exam: REGULAR RHYTHM, +S1, +S2. absent: Murmur - GI/Abdominal Exam GI & Abdominal Exam: Soft, Normal Bowel Sounds. absent: Tenderness Additional comments: Colostomy Bag. Surgical Scar - Extremities Exam Extremities Exam: Full ROM, Normal Capillary Refill, Normal Inspection. absent : Joint Swelling, Pedal Edema - Back Exam Back Exam: NORMAL INSPECTION - Neurological Exam Neurological Exam: Alert, Awake, CN II-XII Intact, Normal Gait, Oriented x3 - Psychiatric Exam Psychiatric exam: Normal Affect, Normal Mood - Skin Skin Exam: Dry, Intact, Normal Color, Warm Assessment and Plan (1) UTI (urinary tract infection) Assessment & Plan: IVF IV Rocephin Urine and Blood Culture ID Consult Pain Medication PRN Status: Acute (2) Acute on chronic renal failure Assessment and Plan: IVF Monitor BMP Renal U/S- No Acute finding Status: Acute (3) Gout Status: Chronic (4) H/O COPD Status: Chronic (5) Hypertension Status: Acute (2) Acute on chronic renal failure Status: Acute
[2017-07-11] MEDS: Latanoprost 0.005% Opht SOUTION OU SCH (21:37)
[2017-07-12 00:26] VITALS: RESP 20
[2017-07-12] MEDS: Oxycodone/Acetaminophen 5/325 mg Tab PO PRN ×3 (02:56→15:27)
[2017-07-12] MEDS: Sodium Chloride 0.45% 1,000 ML IV SCH (04:07)
[2017-07-12 07:31] LABS: THYROID STIMULATING HORMONE 4.12 mIU/ML (0.46-4.68)
[2017-07-12 07:32] LABS: HEMATOCRIT 30.6 % (34.0-47.0); MEAN CELL VOLUME 96.9 fl (81.0-99.0); MEAN CORPUSCULAR HEMOGLOBIN 31.5 pg (27.0-31.0); MEAN CORPUSCULAR HGB CONC 32.5 g/dL (33.0-37.0); RED CELL DISTRIBUTION WIDTH 14.8 % (11.5-14.5); WHITE BLOOD COUNT 7.5 K/uL (4.8-10.8)
[2017-07-12 08:01] LABS: POTASSIUM 4.6 MMOL/L (3.6-5.0)
[2017-07-12 08:14] VITALS: BP 98/43; PULSE 79; TEMP 97.1; O2SAT 97
[2017-07-12] MEDS: Lactobacillus Acidophilus 500 MU Cap PO SCH (10:04)
[2017-07-12] MEDS: Multivitamin With Minerals Tab PO SCH (10:27)
--- NOTE | 2017-07-12 11:06 | PQF GENQUE ---
This form is a permanent part of the medical record 07/12/17 Dr. Berger, Admitted with dysuria. Noted to have a UTI and Acute on Chronic Renal Failure. Patient has a history of COPD. H&P and PN 07/11 with a diagnosis of COPD Exacerbation. Would you please clarify if this is for this admission or not. Clarification of your documentation is requested to better reflect the severity of illness and intensity of treatment of your patient. Indicators present [] Specify: [] [] Specify: [] [] Specify: [] [] Specify: [] Location in the medical record that reflects the above clinical findings: [] Treatment Provided: [] PHYSICIAN'S RESPONSE Based on your medical judgment of the clinical indicators outlined above please clarify the following: [X] Practitioner response. ACute ON Chronic Renal Failure, UTI Correction: NO COPD Exacerbation. H/O COPD [] If unable to determine, please check the box, sign and date. Present On Admission (POA) Indicator: [X] Present at the time of admission [] Not present at the time of admission [] Clinically Undetermined In responding to this query, please exercise your independent professional judgment. The fact that a question is asked does not imply that any particular answer is desired or expected. Thank you for your clarification on this documentation. If you have any questions please call:extension [phone] * Thank you, Bonny Morris RN CDMP [facility]
--- NOTE | 2017-07-14 12:12 | CP.PCM.DIS ---
Provider - Provider Date of Admission: 07/10/17 04:04 Attending physician: Derian Berger MD Primary care physician: Miri Clemons MD Time Spent in preparation of Discharge (in minutes): 25 Diagnosis - Discharge Diagnosis (1) UTI (urinary tract infection) Status: Acute (2) Acute on chronic renal failure Status: Acute Hospital Course - Lab Results Lab Results: Micro Results 07/10/17 07:54 Urine Urine Culture - Final Gram Positive Cocci Most Recent Lab Values WBC 7.5 K/uL (4.8-10.8) 07/12/17 06:15 RBC 3.16 Mil/uL (3.80-5.20) L 07/12/17 06:15 Hgb 9.9 g/dL (12.0-16.0) L 07/12/17 06:15 Hct 30.6 % (34.0-47.0) L 07/12/17 06:15 MCV 96.9 fl (81.0-99.0) 07/12/17 06:15 MCH 31.5 pg (27.0-31.0) H 07/12/17 06:15 MCHC 32.5 g/dL (33.0-37.0) L 07/12/17 06:15 RDW 14.8 % (11.5-14.5) H 07/12/17 06:15 Plt Count 188 K/uL (130-400) 07/12/17 06:15 MPV 8.7 fl (7.2-11.7) 07/10/17 10:00 Neut % (Auto) 75.4 % (50.0-75.0) H 07/10/17 10:00 Lymph % (Auto) 12.7 % (20.0-40.0) L 07/10/17 10:00 [place] % (Auto) 7.7 % (0.0-10.0) 07/10/17 10:00 Eos % (Auto) 3.8 % (0.0-4.0) 07/10/17 10:00 Baso % (Auto) 0.4 % (0.0-2.0) 07/10/17 10:00 Neut # 5.8 K/uL (1.8-7.0) 07/10/17 10:00 Lymph # 1.0 K/uL (1.0-4.3) 07/10/17 10:00 [place] # 0.6 K/uL (0.0-0.8) 07/10/17 10:00 Eos # 0.3 K/uL (0.0-0.7) 07/10/17 10:00 Baso # 0.0 K/uL (0.0-0.2) 07/10/17 10:00 Sodium 140 mmol/l (132-148) 07/12/17 06:15 Potassium 4.6 MMOL/L (3.6-5.0) 07/12/17 06:15 Chloride 113 mmol/L (98-107) H 07/12/17 06:15 Carbon Dioxide 19 mmol/L (22-30) L 07/12/17 06:15 Anion Gap 13 (10-20) 07/12/17 06:15 BUN 27 mg/dl (7-17) H 07/12/17 06:15 Creatinine 1.7 mg/dl (0.7-1.2) H 07/12/17 06:15 Est GFR ( Amer) 35 07/12/17 06:15 Est GFR (Non-Af Amer) 29 07/12/17 06:15 POC Glucose (mg/dL) 98 mg/dL (65-110) 07/10/17 04:05 Random Glucose 73 mg/dL (65-105) 07/12/17 06:15 Uric Acid 4.2 mg/Dl (2.2-7.5) 07/10/17 10:00 Calcium 9.0 mg/dL (8.4-10.2) 07/12/17 06:15 TSH 3rd Generation 4.12 mIU/ML (0.46-4.68) 07/10/17 10:00 Urine Color Yellow (YELLOW) 07/10/17 01:53 Urine Clarity Turbid (Clear) 07/10/17 01:53 Urine pH 5.0 (5.0-8.0) 07/10/17 01:53 Ur Specific [place] 1.020 (1.003-1.030) 07/10/17 01:53 Urine Protein 100 mg/dL (NEGATIVE) 07/10/17 01:53 Urine Glucose (UA) Neg mg/dL (Normal) 07/10/17 01:53 Urine Ketones Negative mg/dL (NEGATIVE) 07/10/17 01:53 Urine Blood Large (NEGATIVE) 07/10/17 01:53 Urine Nitrate Negative (NEGATIVE) 07/10/17 01:53 Urine Bilirubin Negative (NEGATIVE) 07/10/17 01:53 Urine Urobilinogen 0.2-1.0 mg/dL (0.2-1.0) 07/10/17 01:53 Ur Leukocyte Esterase Large [place]/uL (Negative) 07/10/17 01:53 Urine RBC (Auto) 1283 /hpf (0-3) H 07/10/17 01:53 Urine WBC Clumps (Auto) Occ /hpf (NONE) H 07/10/17 01:53 Urine Microscopic WBC 925 /hpf (0-5) H 07/10/17 01:53 Ur Squamous Epith Cells 5 /hpf (0-5) 07/10/17 01:53 Urine Bacteria Many (<OCC) H 07/10/17 01:53 Discharge Exam - Head Exam Head Exam: ATRAUMATIC, NORMAL INSPECTION, NORMOCEPHALIC Discharge Plan - Discharge Medications Prescriptions: Lactobacillus Acidophilus [Bacid Acidophilus] 1 cap PO BID #20 cap Cephalexin [Keflex] 500 mg PO Q8 #21 capsule - Follow Up Plan Condition: STABLE Disposition: HOME/ ROUTINE Instructions: Urinary Tract Infection in Women (DC) Additional Instructions: Complete all antibiotics. Follow up with Dr. Clemons and Dr. Garcia in 1 week Referrals: Tray Garcia MD [Staff Provider] - Miri Clemons MD [Primary Care Provider] -
== END 2017-07-12 15:50 | disposition home or self-care (01) | DRG 683 ==
LOC: H.ER 01:03 → H.ERHOLD 04:04 → H.MEDSURG1 06:40
PROVIDERS: ADMIT Internal Medicine; ATTEND Internal Medicine
DX: N17.9 Acute kidney failure, unspecified (principal); N39.0 Urinary tract infection, site not specified; J44.9 Chronic obstructive pulmonary disease, unspecified; M06.9 Rheumatoid arthritis, unspecified; E78.00 Pure hypercholesterolemia, unspecified; F17.200 Nicotine dependence, unspecified, uncomplicated; I12.9 Hypertensive chronic kidney disease with stage 1 through stage 4 chronic kidney disease, or unspecified chronic kidney disease; B96.89 Other specified bacterial agents as the cause of diseases classified elsewhere; N18.9 Chronic kidney disease, unspecified; F32.9 Major depressive disorder, single episode, unspecified; F41.9 Anxiety disorder, unspecified; M19.90 Unspecified osteoarthritis, unspecified site; M10.9 Gout, unspecified

== ENCOUNTER 2018-08-22 11:17 | Observation (INO) | payer MEDICARE, OTHER ==
[2018-08-22] MEDS ORDERED: Albuterol-Ipratrop 3 mg / 0.5 (3 ml) UD INH STA (11:44)
--- NOTE | 2018-08-22 11:49 | ED PDOC ---
HPI: Influenza Time Seen by Provider: 08/22/18 11:31 Chief Complaint: Flu-like Symptoms Chief Complaint (Provider): flu-like symptoms History Per: Patient Symptoms include: fever, headache, bodyaches, cough, chest pain, difficulty breathing. denies: sore throat, nasal congestion, vomiting Hx Influenza Vaccination: Yes Risk factors for flu complications: Yes: adult > 65 years Additional complaint(s):: 83 y/o F with HTN, diverticulosis s/p colostomy, hx of cervical Ca who presents with flu-like symptoms for the past 3 days. Pt states that she developed a cough productive of clear sputum 3 days ago that has changed to yellow/green sputum. She is having TIMMONS and dizziness, has not been eating as she feels too weak and developed body aches yesterday. She has been having subjective fevers since yesterday as well. Denies N/V, diarrhea, sore throat, ear pain, nasal co ngestion. She states that she is unable to take care of herself and lives alone and has lost approximately 30lbs in the past 6 months. Denies DM, CAD/RI, CVA, HL. Past Medical History Vital Signs: Last Vital Signs Temp 98.6 F 08/22/18 11:19 Pulse 69 08/22/18 11:19 Resp 18 08/22/18 11:19 BP 94/70 L 08/22/18 11:19 Pulse Ox 98 08/22/18 11:19 - Medical History PMH: Anxiety, Arthritis, COPD, Depression, Diverticulitis, Gall Bladder Disease, HTN, Hypercholesterolemia, Rheumatoid Arthritis Denies: HIV, Chronic Kidney Disease - Surgical History Surgical History: Cholecystectomy - Family History Family History: States: Unknown Family Hx - Home Medications Home Medications: Ambulatory Orders Medication Instructions Recorded Latanoprost 0.005% Opht [Xalatan 1 drop OU HS #0 bottle 07/15/15 Opht] Atorvastatin [Lipitor] 10 mg PO HS 12/05/15 Calcium Carbonate/Vitamin D3 1 tab PO DAILY 08/22/18 [Caltrate 600 Plus D3 Tablet] Donepezil HCl [Aricept] 5 mg PO HS 08/22/18 Metoprolol Succinate XL [Toprol XL] 25 mg PO DAILY 08/22/18 Multivit-Min/FA/Lycopen/Lutein 1 tab PO DAILY 08/22/18 [Centrum Silver Tablet] ALPRAZolam [Xanax] 0.25 mg PO DAILY PRN #10 tab 08/23/18 Albuterol 0.042% [Albuterol 0.042% 3 ml IH Q4 PRN #1 chong 08/23/18 Inhal Chong (1.25mg/3ml) UD] Oseltamivir Phosphate [Tamiflu] 75 mg PO BID #8 capsule 08/23/18 - Allergies Allergies/Adverse Reactions: Allergies Allergy/AdvReac Type Severity Reaction Status Date / Time No Known Allergies Allergy Verified 08/22/18 11:19 Physical Exam - Reviewed Nursing Documentation Reviewed: Yes Vital Signs Reviewed: Yes - Physical Exam Appears: Positive for: Uncomfortable Skin: Positive for: Normal Color ENT: Positive for: Normal ENT Inspection Cardiovascular/Chest: Positive for: Regular Rate, Rhythm Respiratory: Positive for: Crackles (B/L lower lungs). Negative for: Rhonchi, Wheezing Gastrointestinal/Abdominal: Positive for: Normal Exam, Other (colostomy in place) Back: Positive for: Normal Inspection Extremity: Positive for: Pedal Edema (trace pedal edema) Neurologic/Psych: Positive for: Alert, Oriented Medical Decision Making Medical Decision Making: EKG Trop BNP CBC, CMP CXR PA and lateral Duo Neb Rapid flu Influenza A + BNP: 1900 CXR: no active pulmonary process. EKG: sinus, HR 77, no ischemic change. 13:30: Re-assessed: continues to feel mildly SOB after DuoNeb. Given Lasix 20mg IV x 1. Pt to be admitted to Dr. Ames for Influenza A and CHF. - Laboratory Results Result Diagrams: 08/23/18 04:10 08/23/18 04:10 - ECG O2 Sat by Pulse Oximetry: 98 Disposition - Clinical Impression Clinical Impression: Influenza, CHF (congestive heart failure) - Patient ED Disposition Is Patient to be Admitted: Yes Discussed With : Kwaku Ojeda Counseled Patient/Family Regarding: Studies Performed, Diagnosis - Disposition Disposition: Transfer of Care Disposition Time: 13:38 Condition: GOOD
[2018-08-22] MEDS ORDERED: Albuterol-Ipratrop 3 mg / 0.5 (3 ml) UD ONE (12:14)
[2018-08-22 12:29] LABS: ALB/GLOB RATIO 0.9 (1.0-2.1); ALBUMIN 3.4 g/dL (3.5-5.0); ALT/SGPT 11 U/L (9-52); AST/SGOT 36 U/L (14-36); BLOOD UREA NITROGEN 27 mg/dl (7-17); CALCIUM 9.4 mg/dL (8.4-10.2); GFR NON-AFRICAN AMERICAN 27
[2018-08-22 12:36] LABS: BASO % 0.5 % (0.0-2.0); EOS % 0.9 % (0.0-4.0); HEMOGLOBIN 10.5 g/dL (12.0-16.0); LYMPH # 0.6 K/uL (1.0-4.3); LYMPH % 12.5 % (20.0-40.0); MEAN CORPUSCULAR HGB CONC 32.2 g/dL (33.0-37.0); MEAN PLATELET VOLUME 8.3 fl (7.2-11.7); MONO # 0.6 K/uL (0.0-0.8); MONO % 13.4 % (0.0-10.0); NEUT # 3.3 K/uL (1.8-7.0); NEUT % 72.7 % (50.0-75.0); NRBC % 0.3 % (0.0-0.0); RBC 3.76 Mil/uL (3.80-5.20); RED CELL DISTRIBUTION WIDTH 15.2 % (11.5-14.5); WHITE BLOOD COUNT 4.6 K/uL (4.8-10.8)
[2018-08-22 12:40] LABS: B-TYPE NATRIURETIC PEPTIDE 1920 pg/ml (0-900)
--- NOTE | 2018-08-22 12:51 | RAD ---
Date of service: 08/22/2018 HISTORY: shortness of breath, cough COMPARISON: 02/15/2017 TECHNIQUE: Chest PA and lateral FINDINGS: LUNGS: No consolidation. PLEURA: No significant pleural effusion identified. No pneumothorax apparent. Minimal left lateral pleural thickening compatible with likely old left lateral rib posttraumatic deformity-stable in appearance Probable minimal biapical pleural thickening-similar in appearance CARDIOVASCULAR: There is presence of aortic atherosclerotic calcification on x-ray. Probable top-normal heart size. No significant or acute findings to account for/ related to the clinical presentation. OSSEOUS STRUCTURES: Thoraco lumbar spondylosis. Bilateral shoulder arthrosis. VISUALIZED UPPER ABDOMEN: Asymmetrical elevation of the right hemidiaphragm-similar OTHER FINDINGS: None. IMPRESSION: No interval pathology noted.
[2018-08-22] MEDS ORDERED: Albuterol HFA 90 mcg/actuation (8 g) INH PRN (14:20)
--- NOTE | 2018-08-22 14:56 | CP.PCM.HP ---
<Edmund Woo - Last Filed: 08/22/18 15:19> History of Present Illness - History of Present Illness History of Present Illness: HPI: Pt is an 83 y/o female with hx of HTN, HLD, COPD, CKD, presented to ED with complaints of worsening productive cough (green) and sob for the past 3-4 days. Reports that she has also been experiencing headache, dizziness, fatigue, and c hills. She denies any chest pain, hemoptysis, LE edema. Reports compliance with all her medication. PMD: Dr. Stoll ROS: Poor appetitie (months), insomnia, generalized weakness x 1 month PMHX: HTN, COPD, CKD, Smoker PsurgHx: Cholecystectomy NKDA Social: 50+ smoking hx, denies heavy alcohol use ED Course: Vitals: T 98.6, HR 69, BP 94/70, RR 18, O2 sat 98% on rm air Noted to be in midl respiratory distress S/P Nebulizer treatement x1 Flu Swab + CBC: 4>10.5/32.7<301 CMP: 140/4.2/103/26/27/1.8 Troponin x1 negative ProBNP: 1920 Cxray: no acute pathology, no pulmonary venous congestion Present on Admission - Present on Admission Any Indicators Present on Admission: No Past Patient History - Infectious Disease Hx of Infectious Diseases: None - Past Medical History & Family History Past Medical History?: Yes - Past Social History Smoking Status: Current Some Days Smoker - CARDIAC Hx Hypercholesterolemia: Yes Hx Hypertension: Yes - PULMONARY Hx Chronic Obstructive Pulmonary Disease (COPD): Yes - NEUROLOGICAL Hx Neurological Disorder: No - HEENT Hx HEENT Problems: Yes Hx Cataracts: Yes (O.U) Hx Glaucoma: Yes - RENAL Hx Chronic Kidney Disease: No - ENDOCRINE/METABOLIC Hx Endocrine Disorders: No - HEMATOLOGICAL/ONCOLOGICAL Hx Human Immunodeficiency Virus (HIV): No - INTEGUMENTARY Hx Dermatological Problems: No - MUSCULOSKELETAL/RHEUMATOLOGICAL Hx Arthritis: Yes Hx Rheumatoid Arthritis: Yes - GASTROINTESTINAL Hx Diverticulitis: Yes Hx Gall Bladder Disease: Yes - GENITOURINARY/GYNECOLOGICAL Hx Genitourinary Disorders: Yes Hx Cervical Cancer: Yes Hx Incontinence: Yes Hx Urinary Tract Infection: Yes Other/Comment: 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 - PSYCHIATRIC Hx Anxiety: Yes Hx Depression: Yes - SURGICAL HISTORY Hx Cholecystectomy: Yes - ANESTHESIA Hx Anesthesia: Yes Hx Anesthesia Reactions: No Hx Malignant Hyperthermia: No Meds Allergies/Adverse Reactions: Allergies Allergy/AdvReac Type Severity Reaction Status Date / Time No Known Allergies Allergy Verified 08/22/18 11:19 Physical Exam - Constitutional Appears: In Acute Distress - Head Exam Head Exam: NORMAL INSPECTION - Eye Exam Eye Exam: Normal appearance - ENT Exam ENT Exam: Mucous Membranes Moist - Neck Exam Neck exam: Positive for: Normal Inspection Additional comments: Neck veins flat - Respiratory Exam Respiratory Exam: Rales (BL lower bases), Wheezes (mild scattered). absent: Accessory Muscle Use - Cardiovascular Exam Cardiovascular Exam: REGULAR RHYTHM, +S1, +S2. absent: JVD, Systolic Murmur - Extremities Exam Extremities exam: Negative for: pedal edema - Neurological Exam Neurological exam: Alert, Oriented x3 - Psychiatric Exam Psychiatric exam: Anxious - Skin Skin Exam: Normal Color Results - Vital Signs Recent Vital Signs: Last Vital Signs Temp 98.6 F 08/22/18 11:19 Pulse 98 H 08/22/18 13:25 Resp 16 08/22/18 13:25 BP 109/43 L 08/22/18 13:56 Pulse Ox 97 08/22/18 13:25 - Labs Result Diagrams: 08/22/18 12:00 08/22/18 12:00 Labs: Laboratory Results - last 24 hr 08/22/18 08/22/18 08/22/18 12:00 12:00 12:00 WBC 4.6 L RBC 3.76 L Hgb 10.5 L Hct 32.7 L MCV 87.0 D MCH 28.0 MCHC 32.2 L RDW 15.2 H Plt Count 301 D MPV 8.3 Neut % (Auto) 72.7 Lymph % (Auto) 12.5 L [place] % (Auto) 13.4 H Eos % (Auto) 0.9 Baso % (Auto) 0.5 Neut # (Auto) 3.3 Lymph # (Auto) 0.6 L [place] # (Auto) 0.6 Eos # (Auto) 0.0 Baso # (Auto) 0.0 Sodium 140 Potassium 4.2 Chloride 103 Carbon Dioxide 26 Anion Gap 15 BUN 27 H Creatinine 1.8 H Est GFR ( Amer) 33 Est GFR (Non-Af Amer) 27 Random Glucose 88 Calcium 9.4 Total Bilirubin 0.4 AST 36 D ALT 11 Alkaline Phosphatase 113 Troponin I < 0.0120 NT-Pro-B Natriuret Pep 1920 H Total Protein 7.2 Albumin 3.4 L Globulin 3.9 Albumin/Globulin Ratio 0.9 L Influenza Typ A,B (EIA) Pos for influenza a H Assessment & Plan - Assessment and Plan (Free Text) Assessment: Pt is an 83 y/o female with hx of HTN, HLD, COPD, CKD, presented to ED with cough, sob, generalized weakness x 1 month, positive flu swab. Cough/Dyspnea -Likely mild COPD exacerbation in setting of Influenza infection -Scheduled nebulizer treatments -Tamiflu daily x 5 days -No fever/leukocytosis or infiltrates on Chest xray- not likely superimposed bacterial infection -Elevated ProBNp; May have underlying CHF vs Pulmonary HTN -Last Echo 2015, EF 60-65%, RVSP 35mmhg -Echo ordered -Monitor respiratory status; O2 prn if desaturates -Monitor vitals -F/u sputum cx HTN -Hold home med for now as blood pressure is low CKD -Crea 1.8-2 at baseline -Avoid nephrotoxic medication Diet -Cardiac DVT ppx -SCD, encourage ambulation -Heparin 500SQ Q12 Discussed case with Dr. Ojeda <Kwaku Ojeda D - Last Filed: 08/22/18 17:01> Results - Vital Signs Recent Vital Signs: Last Vital Signs Temp 98.6 F 08/22/18 11:19 Pulse 92 H 08/22/18 16:16 Resp 18 08/22/18 16:16 BP 106/53 L 08/22/18 16:16 Pulse Ox 98 08/22/18 16:16 - Labs Result Diagrams: 08/22/18 12:00 08/22/18 12:00 Labs: Laboratory Results - last 24 hr 08/22/18 08/22/18 08/22/18 12:00 12:00 12:00 WBC 4.6 L RBC 3.76 L Hgb 10.5 L Hct 32.7 L MCV 87.0 D MCH 28.0 MCHC 32.2 L RDW 15.2 H Plt Count 301 D MPV 8.3 Neut % (Auto) 72.7 Lymph % (Auto) 12.5 L [place] % (Auto) 13.4 H Eos % (Auto) 0.9 Baso % (Auto) 0.5 Neut # (Auto) 3.3 Lymph # (Auto) 0.6 L [place] # (Auto) 0.6 Eos # (Auto) 0.0 Baso # (Auto) 0.0 Sodium 140 Potassium 4.2 Chloride 103 Carbon Dioxide 26 Anion Gap 15 BUN 27 H Creatinine 1.8 H Est GFR ( Amer) 33 Est GFR (Non-Af Amer) 27 Random Glucose 88 Calcium 9.4 Total Bilirubin 0.4 AST 36 D ALT 11 Alkaline Phosphatase 113 Troponin I < 0.0120 NT-Pro-B Natriuret Pep 1920 H Total Protein 7.2 Albumin 3.4 L Globulin 3.9 Albumin/Globulin Ratio 0.9 L Influenza Typ A,B (EIA) Pos for influenza a H Attending/Attestation - Attestation I have personally seen and examined this patient.: Yes I have fully participated in the care of the patient.: Yes I have reviewed all pertinent clinical information: Yes Notes (Text): 08/22/18 17:00 Patient seen and examined with resident. Case discussed and agreed with assessment and plan of management.
[2018-08-22] MEDS ORDERED: Sodium Chloride 3% for Inhalation 4 ML VIAL.NEB IH PRN (15:09)
--- NOTE | 2018-08-22 15:55 | PQF ---
PROVIDER RESPONSE TEXT: Chronic Kidney Disease stage III REVIEWER QUERY TEXT: Kidney Disease, Chronic CKD Stage Chronic Kidney Disease (CKD) is documented in the Medical Record. Please specify the disease stage ( includes probable or suspected) Such as: -- Chronic kidney disease Stage 1 -- Chronic kidney disease Stage 2 -- Chronic kidney disease Stage 3 -- Chronic kidney disease Stage 4 -- Chronic kidney disease Stage 5 -- Chronic kidney disease Stage 5, requiring dialysis -- End Stage Renal Disease -- Other, please specify BUN: 27 Creatinine: 1.8 Est GFR ( Amer): 33 Est GFR (Non-Af Amer):27 H and P includes the diagnosis: CKD -Crea 1.8-2 at baseline -Avoid nephrotoxic medication Stages are defined by the [employer] as follows: CKD Stage I GFR >= 90 ml / min per 1.73 m2 and persistent albuminuria CKD Stage 2 GFR between 60 and 89 with persistent albuminuria CKD Stage 3 GFR between 30 and 59 CKD Stage 4 GFR between 15 and 29 CKD Stage 5 GFR between <15 or End Stage Renal Disease The patient's Clinical Indicators include: -- Query created by: Pippa Camp on 08/22/2018 3:45 PM Electronically signed by: Kwaku Ojeda MD 08/22/2018 3:52 PM
[2018-08-22 19:09] VITALS: BMI 36.6
[2018-08-22] MEDS: Albuterol-Ipratrop 3 mg / 0.5 (3 ml) UD INH SCH (20:00)
--- NOTE | 2018-08-22 23:37 | CARD ---
APPROVED REPORT Date of service: 08/22/2018 EXAM: Two-dimensional and M-mode echocardiogram with Doppler and color Doppler. Other Information Quality : GoodRhythm : NSR INDICATION Dyspnea Elevated Troponin 2D DIMENSIONS IVSd1.00 (0.7-1.1cm)LVDd4.19 (3.9-5.9cm) LVOT Diameter1.79 (1.8-2.4cm)PWd1.06 (0.7-1.1cm) IVSs1.19 (0.8-1.2cm)LVDs2.54 (2.5-4.0cm) FS (%) 39.5 %PWs1.35 (0.8-1.2cm) M-Mode DIMENSIONS Left Atrium (MM)4.60 (2.5-4.0cm)IVSd0.94 (0.7-1.1cm) Aortic Root3.12 (2.2-3.7cm)LVDd4.41 (4.0-5.6cm) Aortic Cusp Exc.1.63 (1.5-2.0cm)PWd0.97 (0.7-1.1cm) IVSs1.13 cmFS (%) 34 % LVDs2.92 (2.0-3.8cm)PWs1.38 cm Aortic Valve AoV Peak Xpaykxic668.8cm/sAoV VTI30.9cmAO Peak GR.10mmHg LVOT Peak Aamnvwcv108.6cm/sLVOT VTI25.66cmAO Mean GR.5mmHg OFELIA (VMAX)1.93ue3NTJ (VTI)1.12cm2 Mitral Valve MV E Ushjoysd119.3cm/sMV DECEL PHAQ439lwFP A Qoeselrw702.1cm/s MV OIM02vtH/A ratio1.0MVA (PHT)3.36cm2 TDI Lateral E' Peak V6.60cm/sMedial E' Peak V6.84cm/sE/Lateral E'19.6 E/Medial E'18.9 Tricuspid Valve TR Peak Bbtbgtfr183gq/sRAP DXTBOPZH73tuKqWY Peak Gr.20mmHg VCTS35fiEf LEFT VENTRICLE The left ventricle is normal size. There is normal left ventricular wall thickness. The left ventricular systolic function is normal. The estimated ejection fraction is 60-65% No regional wall motion abnormalities noted.. The left ventricular diastolic function is normal. No left ventricle thrombus noted on this study. There is no ventricular septal defect visualized. There is no left ventricular aneurysm. There is no mass noted in the left ventricle. RIGHT VENTRICLE The right ventricle is normal size. There is normal right ventricular wall thickness. The right ventricular systolic function is normal. ATRIA The left atrium size is normal. The right atrium size is normal. The interatrial septum is intact with no evidence for an atrial septal defect. AORTIC VALVE The aortic valve is mildly thickened but opens well. No aortic regurgitation is present. There is no aortic valvular stenosis. There is no aortic valvular vegetation. MITRAL VALVE Mitral annular calcification is mild to moderate. There is no evidence of mitral valve prolapse. There is no mitral valve stenosis. Mitral regurgitation is mild. TRICUSPID VALVE The tricuspid valve is normal in structure. There is mild to moderate tricuspid regurgitation. There is no tricuspid valve prolapse or vegetation. There is no tricuspid valve stenosis. PULMONIC VALVE The pulmonary valve is normal in structure. There is trace pulmonic valvular regurgitation. There is no pulmonic valvular stenosis. GREAT VESSELS The aortic root is normal in size. The ascending aorta is normal in size. The pulmonary artery is normal. The IVC is normal in size and collapses >50% with inspiration. PERICARDIAL EFFUSION There is no pericardial effusion. There is no pleural effusion. <Conclusion> Normal LV size and systolic function The estimated ejection fraction is 60-65% There is trace pulmonic valvular regurgitation. Mildly calcified MVA with mild MR Mild to moderate TR with normal estimated peak RVSP Mild AoV sclerosis
--- NOTE | 2018-08-23 00:19 | CARD ---
APPROVED REPORT Date of service: 08/22/2018 EKG Measurement Heart [id number] <Conclusion> Normal sinus rhythm Normal ECG
[2018-08-23] MEDS: Albuterol-Ipratrop 3 mg / 0.5 (3 ml) UD INH SCH ×3 (01:10→13:38)
[2018-08-23 05:27] LABS: HEMOGLOBIN 9.6 g/dL (12.0-16.0); MEAN CORPUSCULAR HEMOGLOBIN 28.2 pg (27.0-31.0); MEAN CORPUSCULAR HGB CONC 32.8 g/dL (33.0-37.0); RBC 3.39 Mil/uL (3.80-5.20); WHITE BLOOD COUNT 3.9 K/uL (4.8-10.8)
[2018-08-23 05:34] LABS: CALCIUM 8.8 mg/dL (8.4-10.2)
[2018-08-23 05:38] LABS: INR 1.2; PROTHROMBIN TIME 14.1 Seconds (9.8-13.1)
[2018-08-23 08:02] VITALS: RESP 20
[2018-08-23] MEDS ORDERED: Multivitamin With Minerals Tab PO SCH (09:00)
[2018-08-23] MEDS ORDERED: Calcium-Vit D 500 mg-200 Units Tab UD PO SCH (09:00)
[2018-08-23] MEDS ORDERED: Pantoprazole 40 mg EC Tab PO SCH (09:00)
[2018-08-23 12:04] VITALS: BP 110/65; PULSE 65; TEMP 98.4
--- NOTE | 2018-08-23 12:44 | CP.PCM.DIS ---
<ChiloEdmund - Last Filed: 08/23/18 12:44> Provider - Provider Date of Admission: 08/22/18 13:38 Attending physician: Kwaku Ojeda MD Time Spent in preparation of Discharge (in minutes): 35 Diagnosis - Discharge Diagnosis (1) Influenza A Status: Acute Comment: Received 1 day of Tamiflu. Discharged on 4 day course of Tamiflu (2) Dyspnea Status: Resolved Comment: Likely mild [employer] DIRECT[employer] exacerbation. Discharged on Albuterol inhaler (3) Anxiety Status: Chronic Comment: discharged on xanax Hospital Course - Lab Results Lab Results: Most Recent Lab Values WBC 3.9 K/uL (4.8-10.8) L 08/23/18 04:10 RBC 3.39 Mil/uL (3.80-5.20) L 08/23/18 04:10 Hgb 9.6 g/dL (12.0-16.0) L 08/23/18 04:10 Hct 29.2 % (34.0-47.0) L 08/23/18 04:10 MCV 86.0 fl (81.0-99.0) 08/23/18 04:10 MCH 28.2 pg (27.0-31.0) 08/23/18 04:10 MCHC 32.8 g/dL (33.0-37.0) L 08/23/18 04:10 RDW 15.0 % (11.5-14.5) H 08/23/18 04:10 Plt Count 240 K/uL (130-400) 08/23/18 04:10 MPV 8.3 fl (7.2-11.7) 08/22/18 12:00 Neut % (Auto) 72.7 % (50.0-75.0) 08/22/18 12:00 Lymph % (Auto) 12.5 % (20.0-40.0) L 08/22/18 12:00 [place] % (Auto) 13.4 % (0.0-10.0) H 08/22/18 12:00 Eos % (Auto) 0.9 % (0.0-4.0) 08/22/18 12:00 Baso % (Auto) 0.5 % (0.0-2.0) 08/22/18 12:00 Neut # (Auto) 3.3 K/uL (1.8-7.0) 08/22/18 12:00 Lymph # (Auto) 0.6 K/uL (1.0-4.3) L 08/22/18 12:00 [place] # (Auto) 0.6 K/uL (0.0-0.8) 08/22/18 12:00 Eos # (Auto) 0.0 K/uL (0.0-0.7) 08/22/18 12:00 Baso # (Auto) 0.0 K/uL (0.0-0.2) 08/22/18 12:00 PT 14.1 Seconds (9.8-13.1) H 08/23/18 04:10 INR 1.2 08/23/18 04:10 Sodium 139 mmol/l (132-148) 08/23/18 04:10 Potassium 3.9 MMOL/L (3.6-5.0) 08/23/18 04:10 Chloride 104 mmol/L (98-107) 08/23/18 04:10 Carbon Dioxide 25 mmol/L (22-30) 08/23/18 04:10 Anion Gap 14 (10-20) 08/23/18 04:10 BUN 26 mg/dl (7-17) H 08/23/18 04:10 Creatinine 1.8 mg/dl (0.7-1.2) H 08/23/18 04:10 Est GFR ( Amer) 33 08/23/18 04:10 Est GFR (Non-Af Amer) 27 08/23/18 04:10 Random Glucose 73 mg/dL (65-105) 08/23/18 04:10 Calcium 8.8 mg/dL (8.4-10.2) 08/23/18 04:10 Total Bilirubin 0.4 mg/dl (0.2-1.3) 08/22/18 12:00 AST 36 U/L (14-36) D 08/22/18 12:00 ALT 11 U/L (9-52) 08/22/18 12:00 Alkaline Phosphatase 113 U/L (38-126) 08/22/18 12:00 Troponin I < 0.0120 ng/mL (0.00-0.120) 08/22/18 12:00 NT-Pro-B Natriuret Pep 1920 pg/ml (0-900) H 08/22/18 12:00 Total Protein 7.2 G/DL (6.3-8.2) 08/22/18 12:00 Albumin 3.4 g/dL (3.5-5.0) L 08/22/18 12:00 Globulin 3.9 gm/dL (2.2-3.9) 08/22/18 12:00 Albumin/Globulin Ratio 0.9 (1.0-2.1) L 08/22/18 12:00 Influenza Typ A,B (EIA) Pos for influenza a (NEGATIVE) H 08/22/18 12:00 - Hospital Course Hospital Course: Pt is an 83 y/o female with hx of HTN, HLD, COPD, CKD, presented to ED with cough, sob, generalized weakness x 1 month, positive flu swab, admitted for observation. Cough/Dyspnea -Likely mild COPD exacerbation in setting of Influenza infection -Scheduled nebulizer treatments -Tamiflu daily x 5 days -No fever/leukocytosis or infiltrates on Chest xray- not likely superimposed bacterial infection -Elevated ProBNp; May have underlying CHF vs Pulmonary HTN -Last Echo 2015, EF 60-65%, RVSP 35mmhg -Echo ordered -Monitor respiratory status; O2 prn if desaturates -Monitor vitals -F/u sputum cx Pt was reassessed today at the bedside. Respiratory status improved to baseline. Pt discharged on Albuterol and 4 day course of Tamiflu Discussed case with Dr. Ojeda Discharge Exam - Head Exam Head Exam: NORMAL INSPECTION - Eye Exam Eye Exam: Normal appearance - ENT Exam ENT Exam: Mucous Membranes Moist - Respiratory Exam Respiratory Exam: Clear to PA & Lateral. absent: Rales, Wheezes - Cardiovascular Exam Cardiovascular Exam: REGULAR RHYTHM, +S1, +S2 - GI/Abdominal Exam GI & Abdominal Exam: Normal Bowel Sounds - Extremities Exam Extremities exam: normal inspection - Neurological Exam Neurological exam: Alert - Psychiatric Exam Psychiatric exam: Normal Affect - Skin Skin Exam: Normal Color Discharge Plan - Discharge Medications Prescriptions: Albuterol 0.042% [Albuterol 0.042% Inhal Ramya (1.25mg/3ml) UD] 3 ml IH Q4 PRN #1 ramya PRN Reason: Shortness Of Breath ALPRAZolam [Xanax] 0.25 mg PO DAILY PRN #10 tab PRN Reason: Anxiety Oseltamivir Phosphate [Tamiflu] 75 mg PO BID #8 capsule - Follow Up Plan Condition: GOOD Disposition: HOME/ ROUTINE Instructions: Flu, Adult (DC), Exacerbation of COPD (DC) Additional Instructions: please make a follow up appt with in 1 week Referrals: [facility] [Outside] Michael Becker MD [Staff Provider] - <Kwaku Ojeda - Last Filed: 08/23/18 13:36> Provider - Provider Date of Admission: 08/22/18 13:38 Attending physician: Kwaku Ojeda MD Hospital Course - Lab Results Lab Results: Most Recent Lab Values WBC 3.9 K/uL (4.8-10.8) L 08/23/18 04:10 RBC 3.39 Mil/uL (3.80-5.20) L 08/23/18 04:10 Hgb 9.6 g/dL (12.0-16.0) L 08/23/18 04:10 Hct 29.2 % (34.0-47.0) L 08/23/18 04:10 MCV 86.0 fl (81.0-99.0) 08/23/18 04:10 MCH 28.2 pg (27.0-31.0) 08/23/18 04:10 MCHC 32.8 g/dL (33.0-37.0) L 08/23/18 04:10 RDW 15.0 % (11.5-14.5) H 08/23/18 04:10 Plt Count 240 K/uL (130-400) 08/23/18 04:10 MPV 8.3 fl (7.2-11.7) 08/22/18 12:00 Neut % (Auto) 72.7 % (50.0-75.0) 08/22/18 12:00 Lymph % (Auto) 12.5 % (20.0-40.0) L 08/22/18 12:00 [place] % (Auto) 13.4 % (0.0-10.0) H 08/22/18 12:00 Eos % (Auto) 0.9 % (0.0-4.0) 08/22/18 12:00 Baso % (Auto) 0.5 % (0.0-2.0) 08/22/18 12:00 Neut # (Auto) 3.3 K/uL (1.8-7.0) 08/22/18 12:00 Lymph # (Auto) 0.6 K/uL (1.0-4.3) L 08/22/18 12:00 [place] # (Auto) 0.6 K/uL (0.0-0.8) 08/22/18 12:00 Eos # (Auto) 0.0 K/uL (0.0-0.7) 08/22/18 12:00 Baso # (Auto) 0.0 K/uL (0.0-0.2) 08/22/18 12:00 PT 14.1 Seconds (9.8-13.1) H 08/23/18 04:10 INR 1.2 08/23/18 04:10 Sodium 139 mmol/l (132-148) 08/23/18 04:10 Potassium 3.9 MMOL/L (3.6-5.0) 08/23/18 04:10 Chloride 104 mmol/L (98-107) 08/23/18 04:10 Carbon Dioxide 25 mmol/L (22-30) 08/23/18 04:10 Anion Gap 14 (10-20) 08/23/18 04:10 BUN 26 mg/dl (7-17) H 08/23/18 04:10 Creatinine 1.8 mg/dl (0.7-1.2) H 08/23/18 04:10 Est GFR ( Amer) 33 08/23/18 04:10 Est GFR (Non-Af Amer) 27 08/23/18 04:10 Random Glucose 73 mg/dL (65-105) 08/23/18 04:10 Calcium 8.8 mg/dL (8.4-10.2) 08/23/18 04:10 Total Bilirubin 0.4 mg/dl (0.2-1.3) 08/22/18 12:00 AST 36 U/L (14-36) D 08/22/18 12:00 ALT 11 U/L (9-52) 08/22/18 12:00 Alkaline Phosphatase 113 U/L (38-126) 08/22/18 12:00 Troponin I < 0.0120 ng/mL (0.00-0.120) 08/22/18 12:00 NT-Pro-B Natriuret Pep 1920 pg/ml (0-900) H 08/22/18 12:00 Total Protein 7.2 G/DL (6.3-8.2) 08/22/18 12:00 Albumin 3.4 g/dL (3.5-5.0) L 08/22/18 12:00 Globulin 3.9 gm/dL (2.2-3.9) 08/22/18 12:00 Albumin/Globulin Ratio 0.9 (1.0-2.1) L 08/22/18 12:00 Influenza Typ A,B (EIA) Pos for influenza a (NEGATIVE) H 08/22/18 12:00 Attending/Attestation - Attestation I have personally seen and examined this patient.: Yes I have fully participated in the care of the patient.: Yes I have reviewed all pertinent clinical information, including history, physical exam and plan: Yes Notes (Text): 08/23/18 13:35 Patient seen and examined with resident. Case discussed and agreed with asse ssment. Patient discharged in stable condition. To continue Tamiflu for another 4 days.
[2018-08-23 14:06] LABS: URINE BACTERIA OCC (<OCC); URINE BILIRUBIN NEGATIVE (NEGATIVE); URINE BLOOD SMALL (NEGATIVE); URINE CLARITY TURBID (Clear); URINE COLOR YELLOW (YELLOW); URINE GLUCOSE (UA) NEG (NEGATIVE); URINE LEUKOCYTE ESTERASE LARGE Leu/uL (Negative); URINE PROTEIN 100 mg/dL (NEGATIVE); URINE UROBILINOGEN 0.2-1.0 mg/dL (0.2-1.0); WBC CLUMPS MANY /hpf
[2018-08-24 15:30] VITALS: O2SAT 98
== END 2018-08-23 15:10 | disposition home or self-care (01) ==
LOC: H.ER 11:17 → H.ERHOLD 13:38 → INTOOBSV 13:38 → H.TEL 17:42
DX: J10.1 Influenza due to other identified influenza virus with other respiratory manifestations (principal); I12.9 Hypertensive chronic kidney disease with stage 1 through stage 4 chronic kidney disease, or unspecified chronic kidney disease; N18.9 Chronic kidney disease, unspecified; Z85.41 Personal history of malignant neoplasm of cervix uteri; M06.9 Rheumatoid arthritis, unspecified; Z93.3 Colostomy status; E78.5 Hyperlipidemia, unspecified; E78.00 Pure hypercholesterolemia, unspecified; F41.9 Anxiety disorder, unspecified; J44.9 Chronic obstructive pulmonary disease, unspecified; F17.200 Nicotine dependence, unspecified, uncomplicated; M19.90 Unspecified osteoarthritis, unspecified site; F32.9 Major depressive disorder, single episode, unspecified
CPT/HCPCS: 36415; 71046; 80048; 80053; 81003; 83880; 84484; 85025; 85027; 85610; 87070; 87804; 93005; 93306; 94640; 99285; G0378